=== PATIENT | female | born 1975 | race Caucasian/White ===

== ENCOUNTER → 2022-01-19 | Outpatient (CLI) | payer OTHER ==
[~2022-01-19] MED LIST: ACET325; ALBU.083IS; ALBU.083IS IH; ALBU90I INH; ALBU90OI; ALBU90OI INH; ALBU90OI6 INH; ALBUIS; ALPR1; AMOX500 PO; AZIT250 PO; Amitriptyline H10 MG PO; BUDE6HFA INH; CIPR500 PO; CITA20 PO; CLAR500 PO; CODGUAEL PO; CRANBERRY PILLS; CYCL10 PO; DOCU100 PO; DOXY100 PO; DULERA 200 MCG/13 GM IH; ESOM20; FLUC150A PO; FLUC200 PO; FLUSAL5005; FLUT110OIA; HYDACE10B PO; HYDACE5 PO; HYDGUAL120 PO; HYDHOMSY; HYDMOR4 PO; IBUP600 PO; IBUP800 PO; LANS15EC; LEVFLO500 PO; METO10 PO; METR500 PO; MONT10T; NAPR220; NAPR500 PO; OMEP10ER PO; OMEP20ER PO; ONDA4ODT MM; OXYACE5T PO; PANT40 PO; PENVK500 PO; PHENA200 PO; PRED20; PRED20 PO; PREVPAC PO; PROACE100 PO; PROCODE120 PO; PROM12.5S PR; PROM25 PO; PROM25S PR; Phenergan/Code480 ML PO; Prednisone20 MG PO; RXCLIN PO; RXHYDACE PO; RXHYDGUAS PO; RXOXYACE PO; RXPROACE PO; SERT50; SODIUM CHLORID100 ML IV; STERIOD INHALER; SUCR1 PO; Singulair4 M1; TRAM50 PO; Ventolin/Prove6.7 GM INH; Zofran4 MG PO; [UNRECOGNIZED DRUG - REMARK]
[2022-01-19 17:09] LABS: Hematocrit 37.7 % (33.0-51.0); Hemoglobin 11.9 g/dL (11.5-16.0); Mean Corpuscular HGB 29.2 pg (26.0-34.0); Mean Corpuscular HGB Conc 31.6 g/dL (31.5-36.5); Mean Corpuscular Volume 93 fL (80-100); Mean Platelet Volume 11.2 fL (9.1-12.4); Platelet Count 260 K/mm3 (150-400); RDW Coefficient Variation 13.2 % (11.7-14.2); RDW Standard Deviation 44.7 fL (35.1-46.3); Red Blood Cell Count 4.07 M/mm3 (3.80-5.20); White Blood Cell Count 6.69 K/mm3 (4.00-11.30)
[2022-01-19 17:16] LABS: Alanine Aminotransfer (ALT/SGP 18 U/L (12-78); Albumin, Blood 3.3 g/dL (3.4-5.0); Albumin/Globulin Ratio 1.1 (0.8-1.8); Alk Phos 106 U/L (50-136); Anion Gap 5 mmol/L (6-16); Aspartate Aminotrans (AST/SGOT 8 U/L (12-37); Bilirubin, Total 0.5 mg/dL (0.1-1.0); Blood Urea Nitrogen 6 mg/dL (8-24); CO2, Blood 25 mmol/L (21-32); Calcium, Blood 8.6 mg/dL (8.5-10.1); Chloride, Blood 111 mmol/L (98-108); Creatinine, Blood 0.85 mg/dL (0.40-1.00); Glomerular Filtration Rate >60 (60-); Glucose, Blood 120 mg/dL (70-99); Potassium, Blood 3.4 mmol/L (3.5-5.5); Sodium, Blood 141 mmol/L (136-145); Total Protein, Blood 6.3 g/dL (6.4-8.2)
== END | disposition home or self-care (01) ==
LOC: LAB SHORT 15:15 → LAB 15:15
PROVIDERS: Family Medicine
DX: M54.6 Pain in thoracic spine (principal); K31.84 Gastroparesis; R11.2 Nausea with vomiting, unspecified; E86.0 Dehydration; G89.29 Other chronic pain
CPT/HCPCS: 80053; 85027

== ENCOUNTER → 2022-02-23 | Outpatient (CLI) | payer MEDICARE, OTHER ==
[~2022-02-23] MED LIST changes: -Amitriptyline H10 MG PO; -HYDMOR4 PO; -METO10 PO; -ONDA4ODT MM; -PROM12.5S PR; -SODIUM CHLORID100 ML IV; -Ventolin/Prove6.7 GM INH; -Zofran4 MG PO
[2022-02-23 16:13] LABS: Hematocrit 37.1 % (33.0-51.0); Hemoglobin 11.8 g/dL (11.5-16.0); Mean Corpuscular HGB 28.7 pg (26.0-34.0); Mean Corpuscular HGB Conc 31.8 g/dL (31.5-36.5); Mean Corpuscular Volume 90 fL (80-100); Mean Platelet Volume 11.1 fL (9.1-12.4); Platelet Count 221 K/mm3 (150-400); RDW Coefficient Variation 13.4 % (11.7-14.2); RDW Standard Deviation 44.3 fL (35.1-46.3); Red Blood Cell Count 4.11 M/mm3 (3.80-5.20); White Blood Cell Count 5.78 K/mm3 (4.00-11.30)
[2022-02-23 16:53] LABS: Alanine Aminotransfer (ALT/SGP 15 U/L (12-78); Albumin, Blood 3.5 g/dL (3.4-5.0); Albumin/Globulin Ratio 1.2 (0.8-1.8); Alk Phos 100 U/L (50-136); Anion Gap 2 mmol/L (6-16); Aspartate Aminotrans (AST/SGOT 8 U/L (12-37); Bilirubin, Total 0.5 mg/dL (0.1-1.0); Blood Urea Nitrogen 9 mg/dL (8-24); Bun/Creatinine Ratio 10.2 (12.0-20.0); CO2, Blood 29 mmol/L (21-32); Calcium, Blood 8.9 mg/dL (8.5-10.1); Chloride, Blood 108 mmol/L (98-108); Creatinine, Blood 0.89 mg/dL (0.40-1.00); Globulin, Blood 2.9 g/dL (2.2-4.0); Glomerular Filtration Rate >60 (60-); Glucose, Blood 92 mg/dL (70-99); Potassium, Blood 3.8 mmol/L (3.5-5.5); Sodium, Blood 139 mmol/L (136-145); Total Protein, Blood 6.4 g/dL (6.4-8.2)
== END | disposition home or self-care (01) ==
LOC: LAB SHORT 14:40
PROVIDERS: Family Medicine
DX: K31.84 Gastroparesis (principal); E86.0 Dehydration; G89.29 Other chronic pain; R11.2 Nausea with vomiting, unspecified; M54.6 Pain in thoracic spine; Z45.2 Encounter for adjustment and management of vascular access device
CPT/HCPCS: 80053; 85027

== ENCOUNTER 2022-03-09 19:18 | Inpatient (IN) | payer MEDICARE, OTHER ==
[~2022-03-09] VITALS: Ht 172.7 cm; Wt 72.6 kg
[2022-03-09] MEDS ORDERED: Ventolin/Prove6.7 GM INH (19:52)
[2022-03-09] MEDS ORDERED: Zofran4 MG PO (19:53)
[2022-03-09] MEDS ORDERED: HYDMOR4 PO (19:53)
[2022-03-09] MEDS ORDERED: SODIUM CHLORID100 ML IV (19:54)
[2022-03-09 20:03] LABS: BASOPHILS ABSOLUTE AUTO 0.04 K/mm3 (0.00-0.23); BASOPHILS PERCENT AUTO 0 % (0-2); EOSINOPHILS ABSOLUTE AUTO 0.17 K/mm3 (0.00-0.68); EOSINOPHILS PERCENT AUTO 2 % (0-6); Hematocrit 38.8 % (33.0-51.0); Hemoglobin 12.5 g/dL (11.5-16.0); IMMATURE GRAN ABSOLUTE AUTO 0.03 K/mm3 (0.00-0.10); IMMATURE GRAN PERCENT AUTO 0 % (0-1); LYMPHOCYTES PERCENT AUTO 13 % (21-46); MONOCYTES ABSOLUTE AUTO 0.28 K/mm3 (0.16-1.47); MONOCYTES PERCENT AUTO 3 % (4-13); Mean Corpuscular HGB 28.8 pg (26.0-34.0); Mean Corpuscular HGB Conc 32.2 g/dL (31.5-36.5); Mean Corpuscular Volume 89 fL (80-100); NEUTROPHILS ABSOLUTE AUTO 7.78 K/mm3 (1.96-9.15); NEUTROPHILS PERCENT AUTO 82 % (41-73); Platelet Count 235 K/mm3 (150-400); RDW Coefficient Variation 13.6 % (11.7-14.2); RDW Standard Deviation 44.3 fL (35.1-46.3); Red Blood Cell Count 4.34 M/mm3 (3.80-5.20)
[2022-03-09 20:16] LABS: International Normalized Ratio 1.12; Prothrombin Time Results 11.7 Sec (9.7-11.5)
[2022-03-09 20:31] LABS: Alanine Aminotransfer (ALT/SGP 17 U/L (12-78); Albumin, Blood 3.8 g/dL (3.4-5.0); Albumin/Globulin Ratio 1.2 (0.8-1.8); Alk Phos 109 U/L (50-136); Anion Gap 8 mmol/L (6-16); Aspartate Aminotrans (AST/SGOT 13 U/L (12-37); Bilirubin, Total 1.1 mg/dL (0.1-1.0); Blood Urea Nitrogen 8 mg/dL (8-24); Bun/Creatinine Ratio 11.9 (12.0-20.0); CO2, Blood 21 mmol/L (21-32); Calcium, Blood 8.7 mg/dL (8.5-10.1); Chloride, Blood 108 mmol/L (98-108); Creatinine, Blood 0.67 mg/dL (0.40-1.00); Globulin, Blood 3.2 g/dL (2.2-4.0); Glomerular Filtration Rate >60 (60-); Glucose, Blood 196 mg/dL (70-99); Potassium, Blood 3.9 mmol/L (3.5-5.5); Sodium, Blood 137 mmol/L (136-145)
[2022-03-09] MEDS ORDERED: PROM12.5S PR (23:11)
--- NOTE | 2022-03-10 06:18 | NUR ---
PT ARRIVES FROM ED AT 0550. PT HAS NAUSEA AND ALSO HAS SOME EMESIS. PRN ZOFRAN GIVEN. ALSO SCHEDULED FENTANYL GIVEN. WILL CONTINUE TO MONITOR PT
[2022-03-10 07:39] LABS: Source, Urine Clean Catch
[2022-03-10 07:46] LABS: Appearance, Urine Clear (Clear); Bilirubin, Urine Neg (Neg); Blood, Urine 2+ (Neg); Color, Urine Yellow (P-Yellow); Glucose Qualitative, Urine Neg (Neg); Ketones, Urine 4+ (Neg); Leukocyte Esterase, Urine Neg (Neg); Nitrite, Urine Neg (Neg); Protein, Urine 1+ (Neg); Specific Gravity, Urine 1.015 (1.003-1.022); Urobilinogen, Urine NORM (Normal)
[2022-03-10 07:54] LABS: Bacteria Rare /hpf; Squamous Epithelial Cells Few /hpf (Few); White Blood Cells, Urine 0-2 /hpf (0-5)
[2022-03-10 08:00] LABS: U Amphetamine Screen Not Detected; U Barbituate Screen Not Detected; U Benzodiazapine Screen Not Detected; U Buprenorphine Screen Not Detected; U Cannabinoids Screen DETECTED; U Cocaine Screen Not Detected; U Methadone Screen Not Detected; U Methamphetamine Screen Not Detected; U Opiates Screen Not Detected; U Oxycodone Screen Not Detected; U Phencyclidine Screen Not Detected; U Propoxyphene Screen Not Detected
[2022-03-10 08:20] LABS: BASOPHILS ABSOLUTE AUTO 0.01 K/mm3 (0.00-0.23); BASOPHILS PERCENT AUTO 0 % (0-2); EOSINOPHILS PERCENT AUTO 0 % (0-6); Hematocrit 42.5 % (33.0-51.0); Hemoglobin 13.6 g/dL (11.5-16.0); IMMATURE GRAN ABSOLUTE AUTO 0.02 K/mm3 (0.00-0.10); IMMATURE GRAN PERCENT AUTO 0 % (0-1); LYMPHOCYTES ABSOLUTE AUTO 0.83 K/mm3 (0.84-5.20); LYMPHOCYTES PERCENT AUTO 8 % (21-46); MONOCYTES ABSOLUTE AUTO 0.29 K/mm3 (0.16-1.47); MONOCYTES PERCENT AUTO 3 % (4-13); Mean Corpuscular HGB 28.7 pg (26.0-34.0); Mean Corpuscular Volume 90 fL (80-100); NEUTROPHILS ABSOLUTE AUTO 8.69 K/mm3 (1.96-9.15); NEUTROPHILS PERCENT AUTO 88 % (41-73); Platelet Count 197 K/mm3 (150-400); RDW Coefficient Variation 13.5 % (11.7-14.2); RDW Standard Deviation 44.3 fL (35.1-46.3); Red Blood Cell Count 4.74 M/mm3 (3.80-5.20); White Blood Cell Count 9.84 K/mm3 (4.00-11.30)
[2022-03-10 08:23] LABS: Alanine Aminotransfer (ALT/SGP 18 U/L (12-78); Albumin, Blood 4.1 g/dL (3.4-5.0); Albumin/Globulin Ratio 1.2 (0.8-1.8); Alk Phos 115 U/L (50-136); Anion Gap 11 mmol/L (6-16); Aspartate Aminotrans (AST/SGOT 14 U/L (12-37); Bilirubin, Total 1.1 mg/dL (0.1-1.0); Blood Urea Nitrogen 6 mg/dL (8-24); Bun/Creatinine Ratio 8.5 (12.0-20.0); CO2, Blood 21 mmol/L (21-32); Calcium, Blood 9.2 mg/dL (8.5-10.1); Chloride, Blood 104 mmol/L (98-108); Creatinine, Blood 0.71 mg/dL (0.40-1.00); Globulin, Blood 3.5 g/dL (2.2-4.0); Glomerular Filtration Rate >60 (60-); Glucose, Blood 126 mg/dL (70-99); Potassium, Blood 3.8 mmol/L (3.5-5.5); Sodium, Blood 136 mmol/L (136-145); Total Protein, Blood 7.6 g/dL (6.4-8.2)
--- NOTE | 2022-03-10 11:27 | NUR ---
Pt. is in bed and displays evidence of viceral pain. Pt. does welcome my visit. Pt. displays evidence of frustration and resignation about her condition. With a calming influence and theraputic listening, pt. begins to demonstrate evidence of trust and engagement. Establish rapport with pt. [place] with pt. Pt. verbalizes gratitude for the spiritual care visit.
--- NOTE | 2022-03-10 15:53 | NUR ---
SHIFT SUMMARY: NAUSEA AND VOMITING PATIENT IS A&OX4. VS ARE WNL AND IS ON RA. IV FLUIDS RUNNING THROUGHOUT SHIFT. PATIENT HAD ABOUT 4 EPISODES OF EMESIS. EMESIS WAS THICK WITH GREENISH/BROWN COLORING. PATIENT HAS RECIEVED IV ATIVAN, PHENERGAN, COMPAZINE, ZOFRAN, AND REGLAN. THE 1MG OF ATIVAN AND REGLAN SEEMED TO DO BEST AND HAD HER FALL ASLEEP. PATIENT IS EASILY AWOKEN WITH TOUCH AND VERBAL STIMULI. CALL LIGHT WITHIN REACH. CALLS APPROPRIATELY. THE PLAN IS TO CONTINUE IV FLUIDS AND MAINTAIN CONTROL OF NAUSEA.
--- NOTE | 2022-03-10 18:06 | NUR ---
CALLED DR. DUNLAP SINCE THE PATIENT WOULD RECIEVE IV PHENERGAN, ATIVAN, REGLAN, FENT, AND ZOFRAN AND WAKE UP VOMITING BROWNISH OUTPUT THROUGHOUT SHIFT. DR. DUNLAP PLACED AN ORDER FOR IV INAPSINE TO STIMULATE APPETITE. PATIENT WAS ALREADY FALLING BACK ASLEEP DUE TO JUST GIVEN IV PHENERGAN AND FENT. CALL LIGHT WITHIN REACH.
--- NOTE | 2022-03-10 18:20 | NUR ---
DR. DUNLAP CAME INTO THE ROOM AND EVALUATED THE PATIENT. DR. DUNLAP SAID TO ALTERNATE BETWEEN ATIVAN AND BENADRYL TO "KEEP HER SEDATED". BENADRYL CAN BE GIVEN 25-50 MG EVERY 4 HOURS. IV ATIVAN 1-2 MG CAN BE GIVEN EVERY 4 HOURS. PATIENT HAS CALL LIGHT WITHIN REACH. FRIEND AT BEDSIDE.
--- NOTE | 2022-03-11 05:13 | NUR ---
SHIFT SUMMARY PT CONTINUES TO HAVE INTRACTABLE N/V OVERNIGHT. WHEN PT IS AWAKE SHE IS VOMITTING. MEDICATED PER EMAR WITH EFFECT. PT ALSO COMPLAINING OF ABD PAIN AND REPORTS PAIN 9/10. EMESIS AT TIMES CLEAR AND SOMETIMES BROWN. IVF INFUSED PER ORDERS. PT HAS BEEN INDEPENDENT IN THE ROOM. VITALS STABLE. BED IN LOWEST POSITION, CALL LIGHT WITHIN REACH.
[2022-03-11 05:49] LABS: Anion Gap 9 mmol/L (6-16); Blood Urea Nitrogen 7 mg/dL (8-24); Bun/Creatinine Ratio 8.7 (12.0-20.0); CO2, Blood 22 mmol/L (21-32); Calcium, Blood 8.5 mg/dL (8.5-10.1); Chloride, Blood 107 mmol/L (98-108); Glomerular Filtration Rate >60 (60-); Glucose, Blood 118 mg/dL (70-99); Potassium, Blood 3.4 mmol/L (3.5-5.5); Sodium, Blood 138 mmol/L (136-145)
--- NOTE | 2022-03-11 15:54 | NUR ---
SHIFT SUMMARY: NAUSEA/VOMITING PATIENT IS A&OX4 WHILE AWAKE BUT HAS BEEN SLEEPING FOR MOST OF THE DAY. PAIN IS MANAGED WITH IV FENT. IV BENADRYL AND ATIVAN ARE BEING GIVEN TO HELP HER REST AND NOT BE VOMITING. PATIENT IS STILL VOMITING SOON SHE WAKES UP. IV FLUIDS WITH POTASSIUM ARE RUNNING AT THIS TIME. PATIENT IS VOIDING AND IS A SBA TO THE BATHROOM DUE TO IV POLE/CORDS. PATIENT HAS VOMITED ABOUT 5-7 TIMES TODAY. EMESIS COLOR IS NOW MORE CLEAR AND FOAMY UNLIKE YESTERDAY IT WAS BROWNISH/GREENISH. PATIENT IS NOW LAYING IN BED. IV FLUIDS ARE CONNECTED TO HER MEDIPORT ON RIGHT CHEST WALL. CALLS APPROPRIATELY. CALL LIGHT WITHIN REACH. I CALLED DR. DUNLAP TO GIVE HIM AN UPDATE ON HER AND HE REPORTED HE WILL BE PUTTING IN IV STEROID ORDERS FOR THE PATIENT TO SEE IF IT WILL HELP. WILL CONTINUE THE IV BENADRYL AND ATIVAN TO DECREASE VOMITING EPISODES.
[2022-03-12 05:15] LABS: Anion Gap 8 mmol/L (6-16); Blood Urea Nitrogen 14 mg/dL (8-24); Bun/Creatinine Ratio 16.7 (12.0-20.0); CO2, Blood 22 mmol/L (21-32); Calcium, Blood 8.3 mg/dL (8.5-10.1); Chloride, Blood 108 mmol/L (98-108); Creatinine, Blood 0.84 mg/dL (0.40-1.00); Glomerular Filtration Rate >60 (60-); Glucose, Blood 110 mg/dL (70-99); Potassium, Blood 4.2 mmol/L (3.5-5.5); Sodium, Blood 138 mmol/L (136-145)
--- NOTE | 2022-03-12 11:45 | NUR ---
PT APPEARS TO BE SLEEPING. SHE APPEARS TO BE RESING COMFORTABLY. RESPIRATIONS ARE RORY AND UNLABORED. PT DOES NOT APPEAR TO BE WINCING OR GRIMACING IN HER SLEEP.
--- NOTE | 2022-03-12 14:06 | NUR ---
Pt. is awake in bed, and welcomes my visit. Friend is present. Pt. is pleasant and verbalizes that this has been a good day. Through theratutic listening re-establish rapport. Pt. was guarded until friend excused herself to make a phone call. Pt. gives update on the condition of her infant grandson who just had successful surgery. Pastoral care and encouragement is given. Pt. displays evidence of agreement. [place] with Pt. Pt.verbalizes gratitude for the spiritual care visit.
--- NOTE | 2022-03-12 19:21 | NUR ---
SHIFT SUMMARY PT IS ADMITTED FOR EXACERBATION OF GASTROPARESIS. PT'S NAUSEA AND PAIN HAVE BEEN DIFFICULT TO CONTROL THROUGHOUT THE DAY. PT HAS ACCESSED MEDIPORT. PT HAS HAD A SMALL AMOUNT OF EMESIS. PT IS INDEPENDENT TO BATHROOM.
--- NOTE | 2022-03-13 05:33 | NUR ---
SURVEY AND MAPPING TECHNICIAN SUMMARY MEDICATED AT BEDTIME WITH BENADRYL, COMPAZINE, AND FENTANYL AND PT WAS ABLE TO SLEEP UNTIL APPROXIMATELY 0430 THIS AM WHICH IS THE LONGEST PT HAS BEEN ABLE TO GO BETWEEN MEDS. MEDICATED AGAIN THIS AM AND PT RESTING AGAIN. TOLERATING SMALL AMOUNTS OF CLEAR LIQUIDS, DRINKING WATER AND HAD SOME CHICKEN BROTH. VSS, WILL CONTINUE TO MONITOR.
--- NOTE | 2022-03-13 14:53 | NUR ---
PT STATED SHE SHE WAS ABLE TO HAVE A LARGE LOOSE STOOL AND PASS GAS. PT STATED STOOL WAS DARK GREEN. HAT PLACED IN TOILET AND PT EDUCATED ON THE USE OF THE HAT TO CATCH STOOL FOR MEASURMENT AND OBSERVATION.
--- NOTE | 2022-03-13 16:24 | NUR ---
ROUNDED ON PT AT 1600. PT APPEARED TO BE SLEEPING. EVEN AND UNLABORED RESPIRATIONS NOTED. NO FACIAL GRIMIACING. WILL CONTINUE TO MONITOR
--- NOTE | 2022-03-13 17:29 | NUR ---
SHIFT SUMMARY PT'S PAIN AND NAUSEA STILL DIFFICULT TO MANAGE. PT STILL HAVING EPISODES OF VOMITTING. PT ADVANCED TO CLEAR LIQUIED DIET. PT STATES THE LIQUIDS UPSET HER STOMACH SO SHE HAS TAKEN IN ONLY SMALL AMOUNTS ON FOOD TRAY. PT IS INDEPENDENT TO BATHROOM. PT STATES SHE WAS ABLE TO PASS GAS AND A LARGE LIQUID STOOL TODAY. PT WAITING TO HEAR FROM GI LUGGAGE MAKER OF THIS REPORT.
--- NOTE | 2022-03-13 19:37 | NUR ---
SHIFT SUMMARY PT CONTINUES TO EXPERIENCE NAUSEA, VOMITING AND ABD PAIN. PT DOES GET SOME RELIEF FROM ANTIEMETICS, PAIN AND ANXIETY MEDICATION. PT REPORTED SHE HAD A STOOL AND PASSED FLATUS THIS AFTERNOON. PT ALSO REPORTS SHE IS CONTINUING TO VOMIT AFTER PO INTAKE. SCOPALAMINE PATCH PLACED TODAY. PT WAS EDUCATED TO USE HER INCENTIVE SPIROMETER AND EDUCATED REGARDING IMPORTANCE OF USE. SHE WAS ALSO ENCOURAGED TO GET OOB AND AMBULATE, SHE AGREED TO AMBULATE X1 IN THE HALWAYS, OTHERWISE SHE IS AMBULATING TO THE BATHROOM. REPORT GIVEN TO ARBEN DENIS.
[2022-03-14 04:58] LABS: Anion Gap 6 mmol/L (6-16); Blood Urea Nitrogen 9 mg/dL (8-24); Bun/Creatinine Ratio 10.2 (12.0-20.0); CO2, Blood 25 mmol/L (21-32); Calcium, Blood 7.8 mg/dL (8.5-10.1); Chloride, Blood 110 mmol/L (98-108); Creatinine, Blood 0.89 mg/dL (0.40-1.00); Glomerular Filtration Rate >60 (60-); Glucose, Blood 80 mg/dL (70-99); Potassium, Blood 3.2 mmol/L (3.5-5.5); Sodium, Blood 141 mmol/L (136-145)
--- NOTE | 2022-03-14 05:26 | NUR ---
PT COOPERATIVE & RECEPTIVE WITH CARE, VSS. PT REPORTS EXTREME ANXIETY, MODERATE PAIN, AND NAUSEA, PT REPORTS ADEQUATE ANXIETY, PAIN, AND NAUSEA CONTROL WITH MEDICATION PER EMAR. PROVIDED ENCOURAGEMENT TO INCREASE ACTIVITY DURING THE DAY AND INCORPORATE DISTRACTION TECHNIQUES. MEDPORT IN RIGHT CHEST IS ACCESSED WITH NS RUNNING @ 50ML/HR. PT INDEPENDENT IN ROOM, REPORTS NORMAL VOIDING PATTERN, REPORTS BM ON 02/11/22, REPORTS NO PASSING OF FLATUS, BOWEL SOUNDS NORMAL. SCD IN USE ON BILAT CALF. CONTINUOUS PULSE OX IN PLACE. PATIENT REPORTS BEING ABLE TO SLEEP DURING SOME OF THE NIGHT, AND IS CURRENTLY RESTING QUIET IN BED. WILL CONTINUE TO MONITOR UNTIL REPORT GIVEN TO NEXT SHIFT.
--- NOTE | 2022-03-14 13:52 | NUR ---
PT TOLERATING PO WITH NO INCREASE IN NAUSEA BUT SPIKES IN PAIN. MANAGED WELL PER EMAR. FENTANYL EFFECTIVE. REPORTS SMALL PASSING OF FLATUS. PT IS AMBULATING IN ROOM AND STAYING HYDRATED. HER MEDIPORT REMIANS ACCESSED, PATENT AND DRAINING. HANDING OFF CARE TO CIRA PADRON.
--- NOTE | 2022-03-14 18:24 | NUR ---
SHIFT SUMMARY ASSUMED CARE OF PT AT 1600. PT RESTING IN ROOM AT ASSUMPTION OF CARE. PT ATTEMPTED TO EAT FROM DINNER TRAY AND REPORTED A RETURN OF SIGNIFICANT PAIN AND NAUSEA. PT ALSO REPORTED AN INCREASE IN ANXIETY. PT MEDICATED PER ORDERS. PT IS IN BED AT THE TIME OF THIS NOTE.
[2022-03-15 05:46] LABS: Anion Gap 7 mmol/L (6-16); Blood Urea Nitrogen 10 mg/dL (8-24); Bun/Creatinine Ratio 10.7 (12.0-20.0); CO2, Blood 25 mmol/L (21-32); Calcium, Blood 7.7 mg/dL (8.5-10.1); Chloride, Blood 110 mmol/L (98-108); Creatinine, Blood 0.94 mg/dL (0.40-1.00); Glomerular Filtration Rate >60 (60-); Glucose, Blood 116 mg/dL (70-99); Potassium, Blood 3.1 mmol/L (3.5-5.5); Sodium, Blood 142 mmol/L (136-145)
--- NOTE | 2022-03-15 06:29 | NUR ---
PT COOPERATIVE WITH CARE PROVIDED, VSS AND CONSISTANT W/ REPORTED BASELINE. PT REPORTED EXTREME PAIN AND ANXIETY, REPORTS ADEQUATE PAIN AND ANXIETY CONTROL W/ MEDICATION PER EMAR. MEDIPORT IN R. CHEST, RECEIVING 50 MLS/HR NS. PATIENT INDEPENDENT IN ROOM REPORTS NORMAL VOIDING PATTERN AND PASSING FLATUS. SCD IN USE BILAT CALF, CONTINUOUS PULSE OX IN USE. REPORTS BEING ABLE TO SLEEP DURING THE NIGHT. PATIENT CURRENTLY SLEEPING, WILL CONTINUE TO MONITOR UNTIL REPORT GIVEN TO NEXT SHIFT.
[2022-03-15] MEDS ORDERED: Amitriptyline H10 MG PO (10:35)
[2022-03-15] MEDS ORDERED: ONDA4ODT MM (10:36)
[2022-03-15] MEDS ORDERED: METO10 PO (10:36)
--- NOTE | 2022-03-15 11:46 | NUR ---
DISCHARGE PT LEFT VIA WHEELCHAIR AT 1130. PT EXPRESSED DESIRE TO GO HOME, SHE REPORTED SHE FELT AT HER BASELINE. SHE REMAINED SLIGHTLY NAUSEOUS BUT STATED IT WAS TOLERABLE. HER MEDIPORT WAS DEACCESSED PRIOR TO DISCHARGE, HEPLOCKED PER PROTOCOL. PATIENT PLANS TO FOLLOW UP WITH PCP AND GASTRO UPON DISCHARGE.
== END 2022-03-15 11:30 | disposition home or self-care (01) | DRG 897 ==
LOC: ER 19:18 → ERHOLD 19:19 → SURS 03-10 05:42
PROVIDERS: Internal Medicine; Physician Assistant; ADMIT Internal Medicine
DX: F12.90 Cannabis use, unspecified, uncomplicated (principal); K31.84 Gastroparesis; E87.6 Hypokalemia; R11.2 Nausea with vomiting, unspecified; Z88.2 Allergy status to sulfonamides; Z88.0 Allergy status to penicillin; Z91.040 Latex allergy status; Z88.5 Allergy status to narcotic agent; J45.909 Unspecified asthma, uncomplicated; Z79.899 Other long term (current) drug therapy; K58.9 Irritable bowel syndrome, unspecified; Z90.49 Acquired absence of other specified parts of digestive tract; Z90.710 Acquired absence of both cervix and uterus; E86.0 Dehydration; G43.909 Migraine, unspecified, not intractable, without status migrainosus; Z87.442 Personal history of urinary calculi
CPT/HCPCS: 36415; 74177; 80048; 80053; 81001; 83690; 85025; 85610; 85651; 85730; 86141; 86850; 86900; 86901; 93005; 93010; 94640; 94664; 94760; 94762; 96361; 96365; 96375; 96376; 99285-25; A9270; C9113; G0378; J0780; J1100; J1200; J1364; J1642; J1790; J2060; J2405; J2550; J2765; J3010; J3480; J7030; J7040; J7050; J7120; Q9967

== ENCOUNTER → 2022-03-23 | Outpatient (CLI) | payer MEDICARE, OTHER ==
[~2022-03-23] MED LIST changes: +Amitriptyline H10 MG PO; +HYDMOR4 PO; +METO10 PO; +ONDA4ODT MM; +PROM12.5S PR; +SODIUM CHLORID100 ML IV; +Ventolin/Prove6.7 GM INH; +Zofran4 MG PO
[2022-03-23 16:05] LABS: Hematocrit 35.3 % (33.0-51.0); Hemoglobin 11.2 g/dL (11.5-16.0); Mean Corpuscular HGB 28.6 pg (26.0-34.0); Mean Corpuscular HGB Conc 31.7 g/dL (31.5-36.5); Mean Corpuscular Volume 90 fL (80-100); Mean Platelet Volume 11.2 fL (9.1-12.4); Platelet Count 195 K/mm3 (150-400); RDW Coefficient Variation 13.6 % (11.7-14.2); RDW Standard Deviation 44.5 fL (35.1-46.3); Red Blood Cell Count 3.91 M/mm3 (3.80-5.20); White Blood Cell Count 5.81 K/mm3 (4.00-11.30)
[2022-03-23 16:18] LABS: Bilirubin, Total 0.6 mg/dL (0.1-1.0); Bun/Creatinine Ratio 6.5 (12.0-20.0); Calcium, Blood 8.7 mg/dL (8.5-10.1); Creatinine, Blood 0.77 mg/dL (0.40-1.00); Globulin, Blood 2.9 g/dL (2.2-4.0); Potassium, Blood 3.6 mmol/L (3.5-5.5); Total Protein, Blood 5.9 g/dL (6.4-8.2)
== END | disposition home or self-care (01) ==
LOC: LAB 14:02 → LAB SHORT 14:02
PROVIDERS: Family Medicine
DX: Z51.81 Encounter for therapeutic drug level monitoring (principal); K31.84 Gastroparesis; E86.0 Dehydration; M54.6 Pain in thoracic spine; G89.29 Other chronic pain; J45.40 Moderate persistent asthma, uncomplicated; R11.2 Nausea with vomiting, unspecified; Z79.899 Other long term (current) drug therapy
CPT/HCPCS: 80053; 85027

== ENCOUNTER 2022-06-22 11:06 | Emergency (ER) | payer MEDICARE, OTHER ==
[~2022-06-22] VITALS: Ht 170.2 cm; Wt 72.6 kg
== END 2022-06-22 12:05 | disposition home or self-care (01) ==
LOC: ER 11:06
DX: H53.8 Other visual disturbances (principal); Z88.2 Allergy status to sulfonamides; Z88.0 Allergy status to penicillin; Z91.040 Latex allergy status; Z88.6 Allergy status to analgesic agent; Z79.899 Other long term (current) drug therapy; J45.909 Unspecified asthma, uncomplicated; Z87.442 Personal history of urinary calculi
CPT/HCPCS: 99283

== ENCOUNTER → 2022-08-25 | Outpatient (CLI) | payer MEDICARE, OTHER ==
[2022-08-25 17:40] LABS: BASOPHILS ABSOLUTE AUTO 0.03 K/mm3 (0.00-0.23); BASOPHILS PERCENT AUTO 1 % (0-2); EOSINOPHILS PERCENT AUTO 11 % (0-6); Hematocrit 34.3 % (33.0-51.0); Hemoglobin 10.9 g/dL (11.5-16.0); IMMATURE GRAN ABSOLUTE AUTO 0.02 K/mm3 (0.00-0.10); IMMATURE GRAN PERCENT AUTO 0 % (0-1); LYMPHOCYTES ABSOLUTE AUTO 2.05 K/mm3 (0.84-5.20); LYMPHOCYTES PERCENT AUTO 32 % (21-46); MONOCYTES ABSOLUTE AUTO 0.54 K/mm3 (0.16-1.47); MONOCYTES PERCENT AUTO 9 % (4-13); Mean Corpuscular HGB 29.1 pg (26.0-34.0); Mean Corpuscular HGB Conc 31.8 g/dL (31.5-36.5); Mean Corpuscular Volume 92 fL (80-100); Mean Platelet Volume 10.2 fL (9.1-12.4); NEUTROPHILS PERCENT AUTO 47 % (41-73); Platelet Count 235 K/mm3 (150-400); RDW Standard Deviation 50.4 fL (35.1-46.3); Red Blood Cell Count 3.75 M/mm3 (3.80-5.20); White Blood Cell Count 6.34 K/mm3 (4.00-11.30)
[2022-08-25 18:04] LABS: Albumin, Blood 3.3 g/dL (3.4-5.0); Albumin/Globulin Ratio 1.1 (0.8-1.8); Bilirubin, Total 0.2 mg/dL (0.1-1.0); Bun/Creatinine Ratio 12.8 (12.0-20.0); Calcium, Blood 8.7 mg/dL (8.5-10.1); Creatinine, Blood 0.78 mg/dL (0.40-1.00); Globulin, Blood 2.9 g/dL (2.2-4.0); Potassium, Blood 4.1 mmol/L (3.5-5.5); Total Protein, Blood 6.2 g/dL (6.4-8.2)
== END | disposition home or self-care (01) ==
LOC: LAB SHORT 16:10 → LAB 16:10
PROVIDERS: Family Medicine
DX: K31.84 Gastroparesis (principal)
CPT/HCPCS: 80053; 84443; 85025

== ENCOUNTER 2022-09-09 15:07 | Emergency (ER) | payer MEDICARE, OTHER ==
[~2022-09-09] VITALS: Ht 170.2 cm; Wt 69.4 kg
[2022-09-09] MEDS ORDERED: Ventolin/Prove6.7 GM INH (16:15)
[2022-09-09] MEDS ORDERED: TRANSDERM-SCOP1 EA10 TD (16:15)
[2022-09-09] MEDS ORDERED: Zyprexa Zydis5 MG PO (16:15)
[2022-09-09] MEDS ORDERED: HYDMOR4 PO (16:15)
[2022-09-09] MEDS ORDERED: LANSOPRAZOLE15 MG PO (16:16)
[2022-09-09] MEDS ORDERED: PROC25S PR (16:16)
[2022-09-09] MEDS ORDERED: DULERA 200 MCG-13 GM IH (16:16)
[2022-09-09] MEDS ORDERED: MONT10T PO (16:16)
[2022-09-09] MEDS ORDERED: CLONAZEPAM1 MG PO (16:16)
[2022-09-09] MEDS ORDERED: ESOMEPRAZOLE MA40 MG PO (16:16)
[2022-09-09 16:38] LABS: BASOPHILS ABSOLUTE AUTO 0.03 K/mm3 (0.00-0.23); BASOPHILS PERCENT AUTO 1 % (0-2); EOSINOPHILS ABSOLUTE AUTO 0.56 K/mm3 (0.00-0.68); EOSINOPHILS PERCENT AUTO 9 % (0-6); Hematocrit 32.8 % (33.0-51.0); Hemoglobin 10.5 g/dL (11.5-16.0); IMMATURE GRAN ABSOLUTE AUTO 0.01 K/mm3 (0.00-0.10); IMMATURE GRAN PERCENT AUTO 0 % (0-1); LYMPHOCYTES ABSOLUTE AUTO 2.04 K/mm3 (0.84-5.20); LYMPHOCYTES PERCENT AUTO 33 % (21-46); MONOCYTES ABSOLUTE AUTO 0.42 K/mm3 (0.16-1.47); MONOCYTES PERCENT AUTO 7 % (4-13); Mean Corpuscular Volume 91 fL (80-100); Mean Platelet Volume 9.5 fL (9.1-12.4); NEUTROPHILS ABSOLUTE AUTO 3.06 K/mm3 (1.96-9.15); NEUTROPHILS PERCENT AUTO 50 % (41-73); Platelet Count 234 K/mm3 (150-400); RDW Coefficient Variation 15.3 % (11.7-14.2); RDW Standard Deviation 50.6 fL (35.1-46.3); Red Blood Cell Count 3.62 M/mm3 (3.80-5.20); White Blood Cell Count 6.12 K/mm3 (4.00-11.30)
[2022-09-09 16:49] LABS: Source, Urine Clean Catch
[2022-09-09 16:59] LABS: Appearance, Urine Clear (Clear); Bilirubin, Urine Neg (Neg); Blood, Urine Neg (Neg); Color, Urine Yellow (P-Yellow); Glucose Qualitative, Urine Neg (Neg); Ketones, Urine Neg (Neg); Leukocyte Esterase, Urine Neg (Neg); Nitrite, Urine Neg (Neg); Protein, Urine Neg (Neg); Urobilinogen, Urine NORM (Normal)
[2022-09-09 17:03] LABS: Albumin, Blood 3.4 g/dL (3.4-5.0); Albumin/Globulin Ratio 1.1 (0.8-1.8); Bilirubin, Total 0.4 mg/dL (0.1-1.0); Calcium, Blood 8.6 mg/dL (8.5-10.1); Creatinine, Blood 0.86 mg/dL (0.40-1.00); Globulin, Blood 3.1 g/dL (2.2-4.0); Total Protein, Blood 6.5 g/dL (6.4-8.2)
[2022-09-09] MEDS ORDERED: METO10 PO (21:17)
== END 2022-09-09 21:37 | disposition home or self-care (01) ==
LOC: ER 15:07
PROVIDERS: Emergency Medicine
DX: R11.2 Nausea with vomiting, unspecified (principal); R10.9 Unspecified abdominal pain; J45.909 Unspecified asthma, uncomplicated; G43.909 Migraine, unspecified, not intractable, without status migrainosus; Z87.891 Personal history of nicotine dependence
CPT/HCPCS: 71045; 74177; 80053; 81003; 83690; 85025; 86850; 86900; 86901; 93005; 93010; J1200; J2405; J2765; J3010; J7030; Q9967

== ENCOUNTER → 2022-12-08 | Outpatient (CLI) | payer MEDICARE, OTHER ==
[~2022-12-08] MED LIST changes: +CLONAZEPAM1 MG PO; +DULERA 200 MCG-13 GM IH; +ESOMEPRAZOLE MA40 MG PO; +LANSOPRAZOLE15 MG PO; +MONT10T PO; +PROC25S PR; +TRANSDERM-SCOP1 EA10 TD; +Zyprexa Zydis5 MG PO
[2022-12-08 16:58] LABS: Hematocrit 34.3 % (33.0-51.0); Hemoglobin 10.9 g/dL (11.5-16.0); Mean Corpuscular HGB 28.1 pg (26.0-34.0); Mean Corpuscular HGB Conc 31.8 g/dL (31.5-36.5); Mean Corpuscular Volume 88 fL (80-100); Platelet Count 241 K/mm3 (150-400); RDW Coefficient Variation 14.2 % (11.7-14.2); RDW Standard Deviation 46.2 fL (35.1-46.3); Red Blood Cell Count 3.88 M/mm3 (3.80-5.20); White Blood Cell Count 7.91 K/mm3 (4.00-11.30)
[2022-12-08 19:34] LABS: Albumin, Blood 3.5 g/dL (3.4-5.0); Albumin/Globulin Ratio 1.2 (0.8-1.8); Bilirubin, Total 0.3 mg/dL (0.1-1.0); Bun/Creatinine Ratio 10.6 (12.0-20.0); Calcium, Blood 8.1 mg/dL (8.5-10.1); Creatinine, Blood 0.85 mg/dL (0.40-1.00); Magnesium, Blood 2.3 mg/dL (1.6-2.4); Percent Saturation 8.1 % (15.0-50.0); Potassium, Blood 3.7 mmol/L (3.5-5.5); Total Protein, Blood 6.5 g/dL (6.4-8.2)
== END ==
LOC: LAB SHORT 15:15 → LAB HH 15:15
DX: K31.84 Gastroparesis (principal); R11.12 Projectile vomiting; R63.0 Anorexia; E86.0 Dehydration
CPT/HCPCS: 80053; 83540; 83550; 83735; 84443; 85027

== ENCOUNTER 2023-03-02 10:26 | Inpatient (IN) | payer MEDICARE, OTHER ==
[~2023-03-02] VITALS: Ht 167.6 cm; Wt 85.8 kg
[2023-03-02 10:52] LABS: BASOPHILS ABSOLUTE AUTO 0.02 K/mm3 (0.00-0.23); BASOPHILS PERCENT AUTO 0 % (0-2); EOSINOPHILS ABSOLUTE AUTO 0.02 K/mm3 (0.00-0.68); EOSINOPHILS PERCENT AUTO 0 % (0-6); Hematocrit 36.3 % (33.0-51.0); Hemoglobin 11.3 g/dL (11.5-16.0); IMMATURE GRAN ABSOLUTE AUTO 0.07 K/mm3 (0.00-0.10); IMMATURE GRAN PERCENT AUTO 0 % (0-1); LYMPHOCYTES ABSOLUTE AUTO 0.88 K/mm3 (0.84-5.20); LYMPHOCYTES PERCENT AUTO 6 % (21-46); MONOCYTES ABSOLUTE AUTO 0.28 K/mm3 (0.16-1.47); MONOCYTES PERCENT AUTO 2 % (4-13); Mean Corpuscular HGB 26.1 pg (26.0-34.0); Mean Corpuscular HGB Conc 31.1 g/dL (31.5-36.5); Mean Corpuscular Volume 84 fL (80-100); NEUTROPHILS ABSOLUTE AUTO 14.64 K/mm3 (1.96-9.15); NEUTROPHILS PERCENT AUTO 92 % (41-73); Platelet Count 299 K/mm3 (150-400); RDW Coefficient Variation 14.9 % (11.7-14.2); RDW Standard Deviation 45.7 fL (35.1-46.3); Red Blood Cell Count 4.33 M/mm3 (3.80-5.20); White Blood Cell Count 15.91 K/mm3 (4.00-11.30)
[2023-03-02 11:17] LABS: Albumin, Blood 3.8 g/dL (3.4-5.0); Bilirubin, Direct 0.2 mg/dL (0.0-0.3); Bilirubin, Indirect 0.4 mg/dL (0.1-0.7); Bilirubin, Total 0.6 mg/dL (0.1-1.0); Bun/Creatinine Ratio 12.4 (12.0-20.0); Calcium, Blood 9.3 mg/dL (8.5-10.1); Creatinine, Blood 0.64 mg/dL (0.40-1.00); Globulin, Blood 3.8 g/dL (2.2-4.0); Potassium, Blood 4.3 mmol/L (3.5-5.5); Total Protein, Blood 7.6 g/dL (6.4-8.2)
[2023-03-02 12:42] LABS: Source, Urine Clean Catch
[2023-03-02 12:54] LABS: Appearance, Urine Clear (Clear); Bilirubin, Urine Neg (Neg); Blood, Urine Neg (Neg); Color, Urine Yellow (P-Yellow); Glucose Qualitative, Urine Neg (Neg); Ketones, Urine 4+ (Neg); Leukocyte Esterase, Urine Neg (Neg); Nitrite, Urine Neg (Neg); Protein, Urine 2+ (Neg); Urobilinogen, Urine NORM (Normal)
[2023-03-02 13:04] LABS: Bacteria Mod /hpf; Mucus Mod (0-Heavy); Red Blood Cells, Urine Not Seen /hpf (0-2); Squamous Epithelial Cells Few /hpf (Few); White Blood Cells, Urine 0-2 /hpf (0-5)
[2023-03-02 19:27] LABS: U Cannabinoids Screen DETECTED
[2023-03-02 19:28] LABS: U Amphetamine Screen Not Detected; U Barbituate Screen Not Detected; U Benzodiazapine Screen Not Detected; U Buprenorphine Screen Not Detected; U Cocaine Screen Not Detected; U Methadone Screen Not Detected; U Methamphetamine Screen Not Detected; U Opiates Screen DETECTED; U Oxycodone Screen Not Detected; U Phencyclidine Screen Not Detected; U Propoxyphene Screen Not Detected
[2023-03-02 21:19] VITALS: BP 156/97
[2023-03-03 03:27] VITALS: BP 157/97
[2023-03-03 04:54] LABS: BASOPHILS ABSOLUTE AUTO 0.02 K/mm3 (0.00-0.23); BASOPHILS PERCENT AUTO 0 % (0-2); EOSINOPHILS PERCENT AUTO 0 % (0-6); Hematocrit 35.9 % (33.0-51.0); Hemoglobin 11.2 g/dL (11.5-16.0); IMMATURE GRAN PERCENT AUTO 1 % (0-1); LYMPHOCYTES ABSOLUTE AUTO 1.64 K/mm3 (0.84-5.20); LYMPHOCYTES PERCENT AUTO 9 % (21-46); MONOCYTES ABSOLUTE AUTO 0.71 K/mm3 (0.16-1.47); MONOCYTES PERCENT AUTO 4 % (4-13); Mean Corpuscular HGB Conc 31.2 g/dL (31.5-36.5); Mean Corpuscular Volume 84 fL (80-100); NEUTROPHILS ABSOLUTE AUTO 15.96 K/mm3 (1.96-9.15); NEUTROPHILS PERCENT AUTO 87 % (41-73); Platelet Count 337 K/mm3 (150-400); RDW Coefficient Variation 15.1 % (11.7-14.2); RDW Standard Deviation 45.4 fL (35.1-46.3); White Blood Cell Count 18.43 K/mm3 (4.00-11.30)
[2023-03-03 05:21] LABS: Bun/Creatinine Ratio 10.1 (12.0-20.0); Calcium, Blood 9.1 mg/dL (8.5-10.1); Creatinine, Blood 0.7 mg/dL (0.40-1.00); Magnesium, Blood 1.8 mg/dL (1.6-2.4)
--- NOTE | 2023-03-03 05:25 | NUR ---
SHIFT SUMMARY 47 YR F ADMITTED ON 03/02/23 FOR SEVERE GASTROPERESIS. FULL CODE. PT CAME IN W/ SEVERE N/V AND HAD SEVERAL EPISODES OF EMISIS THIS SHIFT. SHE WAS GIVEN ANTIEMETICS SEVERAL TIMES AND THESE HELPED W/ THE N/V. SHE WAS ABLE TO SLEEP FOR A FEW HOURS BUT HAS C/O SEVERE ABDOMINAL PAIN. PER PT, HER MEDIPORT NEEDED DEACCESSED AND REACCESSED IT HAD BEEN SEVEN DAYS SINCE IT WAS LAST DONE. KATIE NIEVES RN, DID THE CHANGE. PT IS VERY PROACTIVE IN HER OWN CARE AND NORMALLY DEACCESSES HER OWN MEDIPORT. NO OTHER ACUTE CHANGES THIS SHIFT.
[2023-03-03 07:23] VITALS: BP 126/92
[2023-03-03 15:45] VITALS: BP 141/80
--- NOTE | 2023-03-03 16:39 | NUR ---
PATIENT A/OX4, UP INDEPENDENTLY IN ROOM. CONTINUES TO HAVE N/V, REGLAN NOW SCHEDULED AND COMPAZINE AND ZOFRAN USED TO TREAT. DILAUDID GIVEN Q6 HOURS FOR ABDOMINAL PAIN WITH GOOD RELIEF. PATIENT WAS ABLE TO REST FOR ABOUT 3 HOURS TODAY. MEDIPORT IS ACCESSED AND LR RUNNING AT 75ML/HR. PATIENT IS PLEASANT AND COOPERATIVE WITH CARE, ABLE TO MAKE NEEDS KNOWN.
[2023-03-03 19:31] VITALS: BP 124/90
--- NOTE | 2023-03-04 04:17 | NUR ---
SHIFT SUMMARY 47 YR F ADMITTED ON 03/03/23 FOR SEVERE GASTROPERESIS AND INTRACTABLE VOMITING. FULL CODE. PT HAS HAD SEVERE NAUSEA WITH VOMITING FOR THE FIRST HALF OF THIS SHIFT. ANTIEMETICS ARE NOT FULLY EFFECTIVE. SHE C/O OF ABDOMINAL PAIN AND STATES THAT IT IS PARTIALLY DUE TO HUNGER. SHE TRIED TO EAT SOME JELLO BUT WAS ONLY ABLE TO TAKE A BITE OR TWO BEFORE SHE THREW IT UP. LATER IN THE SHIFT SHE WAS ABLE TO SLEEP FOR A FEW HOURS. LR INFUSING @ 75.
[2023-03-04 04:31] VITALS: BP 137/87
[2023-03-04 04:56] LABS: Hematocrit 35.6 % (33.0-51.0); Mean Corpuscular HGB 25.9 pg (26.0-34.0); Mean Corpuscular HGB Conc 30.9 g/dL (31.5-36.5); Mean Corpuscular Volume 84 fL (80-100); Mean Platelet Volume 9.9 fL (9.1-12.4); Platelet Count 327 K/mm3 (150-400); RDW Coefficient Variation 14.8 % (11.7-14.2); RDW Standard Deviation 44.8 fL (35.1-46.3); Red Blood Cell Count 4.24 M/mm3 (3.80-5.20); White Blood Cell Count 13.95 K/mm3 (4.00-11.30)
[2023-03-04 05:36] LABS: Albumin, Blood 3.3 g/dL (3.4-5.0); Anion Gap 8 mmol/L (6-16); Blood Urea Nitrogen 10 mg/dL (8-24); Bun/Creatinine Ratio 12.8 (12.0-20.0); CO2, Blood 25 mmol/L (21-32); Calcium, Blood 8.7 mg/dL (8.5-10.1); Chloride, Blood 104 mmol/L (98-108); Creatinine, Blood 0.78 mg/dL (0.40-1.00); Glomerular Filtration Rate 95 (60-); Glucose, Blood 89 mg/dL (70-99); Phosphorus, Blood 2.3 mg/dL (2.5-4.9); Potassium, Blood 3.8 mmol/L (3.5-5.5); Sodium, Blood 137 mmol/L (136-145)
[2023-03-04 07:04] VITALS: BP 148/82
[2023-03-04 16:01] VITALS: BP 126/72
--- NOTE | 2023-03-04 17:18 | NUR ---
PATIENT CONTINUES TO HAVE PERSISTENT N/V THROUGHOUT THE DAY DESPITE MULTIPLE MEDICATIONS TO TREAT. ABDOMINAL PAIN BETTER CONTROLLED WITH INCREASED FREQUENCY OF DILAUDID. VSS, ON RA. INCREASED WEAKNESS TODAY AND IS NOW USING BEDSIDE COMMODE INSTEAD OF AMBLATING TO RESTROOM. MEDIPORT ACCESSED AND LR INFUSING AT 75ML/HR. PATIENT UNABLE TO TOLERATE CLEAR LIQUID DIET.
[2023-03-04 20:45] VITALS: BP 172/98
--- NOTE | 2023-03-05 04:05 | NUR ---
SHIFT SUMMARY 47 YR F ADMITTED ON 03/03/23 FOR GASTROPERESIS. FULL CODE. NO ACUTE CHANGES THIS SHIFT. PT IS STILL HAVING PAIN AT 8-9 BUT STATES THAT IT IS BETTER CONTROLLED WITH MORE FREQUENT DOSING OF PAIN MEDS. NAUSEA IS CONSTANT AND ANTIEMETICS ARE BEING GIVEN REGULARLY. VOMITING HAS IMPROVED THIS SHIFT. SHE TRIED CHICKEN BROTH BUT WAS ONLY ABLE TO GET A COUPLE OF SIPS DOWN BEFORE SHE VOMITED.
[2023-03-05 05:39] LABS: Hemoglobin 10.2 g/dL (11.5-16.0); Mean Corpuscular HGB 25.8 pg (26.0-34.0); Mean Corpuscular HGB Conc 30.9 g/dL (31.5-36.5); Mean Corpuscular Volume 84 fL (80-100); Mean Platelet Volume 9.9 fL (9.1-12.4); Platelet Count 253 K/mm3 (150-400); RDW Coefficient Variation 14.5 % (11.7-14.2); RDW Standard Deviation 44.5 fL (35.1-46.3); Red Blood Cell Count 3.95 M/mm3 (3.80-5.20)
[2023-03-05 05:54] LABS: Albumin, Blood 2.9 g/dL (3.4-5.0); Anion Gap 6 mmol/L (6-16); Blood Urea Nitrogen 7 mg/dL (8-24); Bun/Creatinine Ratio 8.9 (12.0-20.0); CO2, Blood 27 mmol/L (21-32); Chloride, Blood 105 mmol/L (98-108); Creatinine, Blood 0.79 mg/dL (0.40-1.00); Glomerular Filtration Rate 93 (60-); Glucose, Blood 82 mg/dL (70-99); Magnesium, Blood 1.8 mg/dL (1.6-2.4); Phosphorus, Blood 2.5 mg/dL (2.5-4.9); Potassium, Blood 3.5 mmol/L (3.5-5.5); Sodium, Blood 138 mmol/L (136-145)
[2023-03-05 07:29] VITALS: BP 169/86
--- NOTE | 2023-03-05 11:17 | NUR ---
Pt. is awake in bed and welcomes my visit. Pt. displays evidence of being very familiar with her condition, and being aware of treatments and prognosis. Facilitate a life review and eestablish rapport. Pt. displays evidence of being open, aware and engaged. Prayed with Pt. Pt. verbalized gratitude for the spiritual care visit.
--- NOTE | 2023-03-05 17:43 | NUR ---
PT IS A&O X4, ANSWERS QUESTIONS APPROPRIATELY. REPORTS ABDOMINAL PAIN AND NAUSEA. MANAGES PAIN WITH IV DILAUDED AND NAUSEA WITH SCHEDULED IV REGLAN AND PRN COMPAZINE AND ZOFRAN. PT SAID "MEDICATIONS ARE LIKE A BANDAID AND NOT REALLY CONTROLLING MY SYMPTOMS. NOT TOLERANT TO MEALS AND/OR ANYTHING BY MOUTH. VITALS ARE STABLE. WILL CONTINUE PLAN OF CARE.
[2023-03-05 20:07] VITALS: BP 145/90
[2023-03-06 04:03] VITALS: BP 124/81
--- NOTE | 2023-03-06 05:30 | NUR ---
PATIENT REMAINS ALERT AND ORIENTED X4, COOPERATIVE WITH CARE. IV LR INFUSING AT 75/H, N/V AND ABD PAIN TREATED PER JAN THROUGHT R CHEST PORT. JUST PO WATER CONSUMED OVER NIGHT. VSS. WILL CONT TO MONITOR.
[2023-03-06 07:45] VITALS: BP 128/89
[2023-03-06 09:57] LABS: Albumin, Blood 3.2 g/dL (3.4-5.0); Anion Gap 5 mmol/L (6-16); Blood Urea Nitrogen 5 mg/dL (8-24); Bun/Creatinine Ratio 6.6 (12.0-20.0); CO2, Blood 29 mmol/L (21-32); Calcium, Blood 8.4 mg/dL (8.5-10.1); Chloride, Blood 104 mmol/L (98-108); Creatinine, Blood 0.75 mg/dL (0.40-1.00); Glomerular Filtration Rate 99 (60-); Glucose, Blood 116 mg/dL (70-99); Phosphorus, Blood 2.3 mg/dL (2.5-4.9); Potassium, Blood 3.3 mmol/L (3.5-5.5); Sodium, Blood 138 mmol/L (136-145)
[2023-03-06 15:32] VITALS: BP 137/88
--- NOTE | 2023-03-06 17:17 | NUR ---
PT A&OX4, CALLS APPROPRIATELY. PATIENT REPORTS ABD PAIN AND NAUSEA, PRN DILAUDID, COMPAZINE, AND ZOFRAN GIVEN TO CONTROL PAIN AND NAUSEA. VITALS STABLE. POTASSIUM LEVEL REPORTED AT 3.3 THIS AM AT 0909, POTASSIUM PHOSPHATE ADMINISTERED VIA IV. PT STABLE FOR DISCHARGE. STUDENT COUNSELOR SET UP HOME HEALTH REFERAL FOR WEDNESDAY. DISCHARGE EDUCATION PROVIDED, PATIENT VERBALIZED UNDERSTANDING.
== END 2023-03-06 17:55 | disposition home health service (06) | DRG 392 ==
LOC: ER 10:26 → MEDS 10:27
PROVIDERS: Internal Medicine; Nurse Practitioner Acute Care; Student in an Organized Health Care Education/Training Program; ADMIT Internal Medicine
DX: K31.84 Gastroparesis (principal); K20.90 Esophagitis, unspecified without bleeding; E87.6 Hypokalemia; E83.42 Hypomagnesemia; K44.9 Diaphragmatic hernia without obstruction or gangrene; M79.7 Fibromyalgia; E83.39 Other disorders of phosphorus metabolism; F41.8 Other specified anxiety disorders; D72.829 Elevated white blood cell count, unspecified; F12.90 Cannabis use, unspecified, uncomplicated; K21.9 Gastro-esophageal reflux disease without esophagitis; K52.9 Noninfective gastroenteritis and colitis, unspecified; E86.0 Dehydration; J45.909 Unspecified asthma, uncomplicated; E66.9 Obesity, unspecified; E28.2 Polycystic ovarian syndrome; N73.9 Female pelvic inflammatory disease, unspecified; G43.909 Migraine, unspecified, not intractable, without status migrainosus; N80.9 Endometriosis, unspecified; Z87.442 Personal history of urinary calculi; Z90.49 Acquired absence of other specified parts of digestive tract; Z90.89 Acquired absence of other organs; Z87.891 Personal history of nicotine dependence; Z90.710 Acquired absence of both cervix and uterus; Z98.890 Other specified postprocedural states; Z88.0 Allergy status to penicillin; Z88.2 Allergy status to sulfonamides; Z91.040 Latex allergy status; Z88.6 Allergy status to analgesic agent; Z88.5 Allergy status to narcotic agent; Z79.899 Other long term (current) drug therapy
CPT/HCPCS: 74177; 80048; 80053; 80069; 81001; 82248; 83690; 83735; 85025; 85027; 93005; 93010; 94640; 94664; 94760; 96361; 96365; 96375; 96376; 99285-25; A9270; C9113; G0378; J0780; J1100; J1170; J1790; J2405; J2550; J2765; J3480; J7060; J7120; Q9967

== ENCOUNTER 2023-03-27 00:51 | Day surgery (SDC) | payer MEDICARE, OTHER ==
[2023-03-27 10:24] VITALS: BP 140/101
[2023-03-27] MEDS ORDERED: Ondansetron4 MG/2 ML IV (10:31)
--- NOTE | 2023-03-27 17:06 | NUR ---
PT ASKED THAT I CALL UP TO [facility] AND TELL THEM THAT SHE WILL CONTINUE TO NEED HER IV INFUSIONS.
[2023-03-28] MEDS ORDERED: Percocet 5-3251 EACH PO (13:14)
[2023-03-28] MEDS ORDERED: CEFD300 PO (13:14)
[2023-03-28] MEDS ORDERED: Flagyl500 MG PO (13:14)
== END 2023-03-27 10:32 | disposition home or self-care (01) ==
LOC: ATC 00:51
DX: Z45.2 Encounter for adjustment and management of vascular access device (principal); K31.84 Gastroparesis; K22.4 Dyskinesia of esophagus; R13.14 Dysphagia, pharyngoesophageal phase; J86.0 Pyothorax with fistula; K44.9 Diaphragmatic hernia without obstruction or gangrene; Z88.0 Allergy status to penicillin; Z88.2 Allergy status to sulfonamides; Z79.899 Other long term (current) drug therapy; J45.40 Moderate persistent asthma, uncomplicated
CPT/HCPCS: 96523; J1642

== ENCOUNTER 2023-05-08 08:00 | Day surgery (SDC) | payer MEDICARE, OTHER ==
[~2023-05-08 08:00] MED LIST changes: +CEFD300 PO; +Flagyl500 MG PO; +Ondansetron4 MG/2 ML IV; +Percocet 5-3251 EACH PO
[2023-05-08 11:45] VITALS: BP 110/56
== END 2023-05-08 23:59 | disposition home or self-care (01) ==
LOC: ATC 08:00
DX: Z45.2 Encounter for adjustment and management of vascular access device (principal); K31.84 Gastroparesis; K22.4 Dyskinesia of esophagus; R13.14 Dysphagia, pharyngoesophageal phase; J86.0 Pyothorax with fistula; K44.9 Diaphragmatic hernia without obstruction or gangrene
CPT/HCPCS: 96523; J1642

== ENCOUNTER 2023-05-15 00:16 | Day surgery (SDC) | payer MEDICARE, OTHER ==
[2023-05-15 09:08] VITALS: BP 121/89
== END 2023-05-15 09:19 | disposition home or self-care (01) ==
LOC: ATC 00:16
DX: Z45.2 Encounter for adjustment and management of vascular access device (principal); K31.84 Gastroparesis; K22.4 Dyskinesia of esophagus; R13.14 Dysphagia, pharyngoesophageal phase; J86.0 Pyothorax with fistula; K44.9 Diaphragmatic hernia without obstruction or gangrene; Z88.2 Allergy status to sulfonamides; Z88.0 Allergy status to penicillin
CPT/HCPCS: 96523; J1642

== ENCOUNTER 2023-05-22 00:05 | Day surgery (SDC) | payer MEDICARE, OTHER ==
[2023-05-22 11:08] VITALS: BP 112/65
[2023-05-22] MEDS ORDERED: METPRE4DP PO (11:32)
[2023-05-22] MEDS ORDERED: CLIN150 PO (11:33)
== END 2023-05-22 11:20 | disposition home or self-care (01) ==
LOC: ATC 00:05
DX: K31.84 Gastroparesis (principal); K22.4 Dyskinesia of esophagus; R13.14 Dysphagia, pharyngoesophageal phase; J86.0 Pyothorax with fistula; K44.9 Diaphragmatic hernia without obstruction or gangrene; Z45.2 Encounter for adjustment and management of vascular access device
CPT/HCPCS: J1642

== ENCOUNTER 2023-05-29 01:16 | Day surgery (SDC) | payer MEDICARE, OTHER ==
[~2023-05-29 01:16] MED LIST changes: +CLIN150 PO; +METPRE4DP PO
[2023-05-29 11:06] VITALS: BP 105/76
== END 2023-05-29 11:16 | disposition home or self-care (01) ==
LOC: ATC 01:16
DX: Z45.2 Encounter for adjustment and management of vascular access device (principal); K31.84 Gastroparesis; K22.4 Dyskinesia of esophagus; R13.14 Dysphagia, pharyngoesophageal phase; J86.0 Pyothorax with fistula; K44.9 Diaphragmatic hernia without obstruction or gangrene
CPT/HCPCS: 96523; J1642

== ENCOUNTER 2023-06-05 09:36 | Day surgery (SDC) | payer MEDICARE, OTHER | END 2023-06-05 09:48 | disposition home or self-care (01) | LOC: ATC 09:36 | DX: Z45.2 Encounter for adjustment and management of vascular access device (principal); K31.84 Gastroparesis; K22.4 Dyskinesia of esophagus; R13.14 Dysphagia, pharyngoesophageal phase; J86.0 Pyothorax with fistula; K44.9 Diaphragmatic hernia without obstruction or gangrene; Z88.0 Allergy status to penicillin; Z88.2 Allergy status to sulfonamides; Z79.899 Other long term (current) drug therapy | CPT/HCPCS: J1642 ==

== ENCOUNTER 2023-06-12 00:50 | Day surgery (SDC) | payer MEDICARE, OTHER ==
[2023-06-12 10:06] VITALS: BP 127/90
== END 2023-06-12 10:06 | disposition home or self-care (01) ==
LOC: ATC 00:50
DX: Z45.2 Encounter for adjustment and management of vascular access device (principal); K31.84 Gastroparesis; K22.4 Dyskinesia of esophagus; R13.14 Dysphagia, pharyngoesophageal phase; J86.0 Pyothorax with fistula; K44.9 Diaphragmatic hernia without obstruction or gangrene
CPT/HCPCS: 96523; J1642

== ENCOUNTER 2023-06-19 06:20 | Day surgery (SDC) | payer MEDICARE, OTHER ==
[2023-06-19 10:29] VITALS: BP 124/91
== END 2023-06-19 10:29 | disposition home or self-care (01) ==
LOC: ATC 06:20
DX: Z45.2 Encounter for adjustment and management of vascular access device (principal); K31.84 Gastroparesis; K22.4 Dyskinesia of esophagus; R13.14 Dysphagia, pharyngoesophageal phase; J86.0 Pyothorax with fistula; K44.9 Diaphragmatic hernia without obstruction or gangrene
CPT/HCPCS: 96523; J1642

== ENCOUNTER 2023-06-26 00:10 | Day surgery (SDC) | payer MEDICARE, OTHER ==
[2023-06-26 09:17] VITALS: BP 122/81
== END 2023-06-26 09:20 | disposition home or self-care (01) ==
LOC: ATC 00:10
DX: Z45.2 Encounter for adjustment and management of vascular access device (principal); K31.84 Gastroparesis; K44.9 Diaphragmatic hernia without obstruction or gangrene; K22.4 Dyskinesia of esophagus; R13.14 Dysphagia, pharyngoesophageal phase; J86.0 Pyothorax with fistula; Z88.0 Allergy status to penicillin; Z88.2 Allergy status to sulfonamides; Z87.891 Personal history of nicotine dependence
CPT/HCPCS: 96523; J1642

== ENCOUNTER 2023-07-03 00:50 | Day surgery (SDC) | payer MEDICARE, OTHER ==
[2023-07-03 09:01] VITALS: BP 100/75
== END 2023-07-03 09:09 | disposition home or self-care (01) ==
LOC: ATC 00:50
DX: Z45.2 Encounter for adjustment and management of vascular access device (principal); K31.84 Gastroparesis; K22.4 Dyskinesia of esophagus; R13.14 Dysphagia, pharyngoesophageal phase; J86.0 Pyothorax with fistula; K44.9 Diaphragmatic hernia without obstruction or gangrene
CPT/HCPCS: 96523; J1642

== ENCOUNTER 2023-07-10 02:11 | Day surgery (SDC) | payer MEDICARE, OTHER ==
[2023-07-10 10:43] VITALS: BP 105/81
== END 2023-07-10 10:52 | disposition home or self-care (01) ==
LOC: ATC 02:11
DX: K31.84 Gastroparesis (principal); K22.4 Dyskinesia of esophagus; R13.14 Dysphagia, pharyngoesophageal phase; J86.0 Pyothorax with fistula; Z45.2 Encounter for adjustment and management of vascular access device; K44.9 Diaphragmatic hernia without obstruction or gangrene; Z88.2 Allergy status to sulfonamides; Z88.0 Allergy status to penicillin
CPT/HCPCS: 96523; J1642

== ENCOUNTER 2023-07-17 08:59 | Day surgery (SDC) | payer MEDICARE, OTHER ==
[2023-07-17 09:06] VITALS: BP 129/86
== END 2023-07-17 09:14 | disposition home or self-care (01) ==
LOC: ATC 08:59
DX: Z45.2 Encounter for adjustment and management of vascular access device (principal); K31.84 Gastroparesis; K22.4 Dyskinesia of esophagus; R13.14 Dysphagia, pharyngoesophageal phase; J86.0 Pyothorax with fistula; K44.9 Diaphragmatic hernia without obstruction or gangrene; Z88.0 Allergy status to penicillin; Z88.2 Allergy status to sulfonamides; Z79.899 Other long term (current) drug therapy
CPT/HCPCS: 96523; J1642

== ENCOUNTER 2023-07-24 02:42 | Day surgery (SDC) | payer MEDICARE, OTHER ==
[2023-07-24 11:05] VITALS: BP 117/91
== END 2023-07-24 11:05 | disposition home or self-care (01) ==
LOC: ATC 02:42
DX: Z45.2 Encounter for adjustment and management of vascular access device (principal); K31.84 Gastroparesis; K22.4 Dyskinesia of esophagus; R13.14 Dysphagia, pharyngoesophageal phase; J86.0 Pyothorax with fistula; K44.9 Diaphragmatic hernia without obstruction or gangrene; Z88.0 Allergy status to penicillin; Z88.2 Allergy status to sulfonamides
CPT/HCPCS: 99211; J1642

== ENCOUNTER 2023-07-31 02:35 | Day surgery (SDC) | payer MEDICARE, OTHER ==
[2023-07-31 11:50] VITALS: BP 117/70
== END 2023-07-31 11:52 | disposition home or self-care (01) ==
LOC: ATC 02:35
DX: Z45.2 Encounter for adjustment and management of vascular access device (principal); K31.84 Gastroparesis; K22.4 Dyskinesia of esophagus; R13.14 Dysphagia, pharyngoesophageal phase; J86.0 Pyothorax with fistula; K44.9 Diaphragmatic hernia without obstruction or gangrene
CPT/HCPCS: J1642

== ENCOUNTER 2023-08-07 01:14 | Day surgery (SDC) | payer MEDICARE, OTHER ==
[2023-08-07 11:31] VITALS: BP 122/82
== END 2023-08-07 11:40 | disposition home or self-care (01) ==
LOC: ATC 01:14
DX: Z45.2 Encounter for adjustment and management of vascular access device (principal); K31.84 Gastroparesis; K22.4 Dyskinesia of esophagus; R13.14 Dysphagia, pharyngoesophageal phase; J86.0 Pyothorax with fistula; K44.9 Diaphragmatic hernia without obstruction or gangrene
CPT/HCPCS: 96523; J1642

== ENCOUNTER 2023-08-09 11:19 | Inpatient (IN) | payer MEDICARE, OTHER ==
[~2023-08-09] VITALS: Ht 170.2 cm; Wt 87.4 kg
[2023-08-09 12:27] LABS: BASOPHILS ABSOLUTE AUTO 0.01 K/mm3 (0.00-0.23); BASOPHILS PERCENT AUTO 0 % (0-2); EOSINOPHILS ABSOLUTE AUTO 0.01 K/mm3 (0.00-0.68); EOSINOPHILS PERCENT AUTO 0 % (0-6); Hemoglobin 10.3 g/dL (11.5-16.0); IMMATURE GRAN ABSOLUTE AUTO 0.05 K/mm3 (0.00-0.10); IMMATURE GRAN PERCENT AUTO 0 % (0-1); LYMPHOCYTES ABSOLUTE AUTO 0.83 K/mm3 (0.84-5.20); LYMPHOCYTES PERCENT AUTO 8 % (21-46); MONOCYTES ABSOLUTE AUTO 0.29 K/mm3 (0.16-1.47); MONOCYTES PERCENT AUTO 3 % (4-13); Mean Corpuscular HGB 24.3 pg (26.0-34.0); Mean Corpuscular HGB Conc 30.3 g/dL (31.5-36.5); Mean Corpuscular Volume 80 fL (80-100); Mean Platelet Volume 10.3 fL (9.1-12.4); NEUTROPHILS ABSOLUTE AUTO 9.95 K/mm3 (1.96-9.15); NEUTROPHILS PERCENT AUTO 89 % (41-73); Platelet Count 232 K/mm3 (150-400); RDW Coefficient Variation 18.3 % (11.7-14.2); RDW Standard Deviation 52.8 fL (35.1-46.3); Red Blood Cell Count 4.24 M/mm3 (3.80-5.20); White Blood Cell Count 11.14 K/mm3 (4.00-11.30)
[2023-08-09 12:46] LABS: Albumin, Blood 3.8 g/dL (3.4-5.0); Bilirubin, Total 0.6 mg/dL (0.1-1.0); Bun/Creatinine Ratio 12.1 (12.0-20.0); Calcium, Blood 9.3 mg/dL (8.5-10.1); Creatinine, Blood 0.83 mg/dL (0.40-1.00); Globulin, Blood 3.9 g/dL (2.2-4.0); Potassium, Blood 3.8 mmol/L (3.5-5.5); Total Protein, Blood 7.7 g/dL (6.4-8.2)
[2023-08-09 18:03] VITALS: BP 158/90
--- NOTE | 2023-08-09 18:25 | NUR ---
ADMIT: PT ARRIVED TO MEDICAL FLOOR @1800. PT ARRIVED NAUSEOUS AND BEGAN THROWING UP SHORTLY AFTER ARRIVAL. PUKE BAG AND NAUSEA MEDS PROVIDED. PAIN MEDICATIONS GIVEN PER EMAR. LR INFUSING @100/HR IN R. CHEST POWERPORT. PT CURRENTLY RESTING C/O COMPLAINTS.
[2023-08-09 19:04] VITALS: BP 170/94
[2023-08-10 03:09] VITALS: BP 112/74
--- NOTE | 2023-08-10 03:29 | NUR ---
SHIFT SUMMARY PT A&O, COOPERATIVE WITH CARE. PT COMPLAINED OF NAUSEA AND WAS ACTIVELY VOMITING DURING THE SHIFT. GAVE PUKE BAG, ICE CHIPS, AMD MEDICATED PER EMAR. PT ON CLEAR LIQUID DIET. LR INFUISING AT 100 ML/HR. PT CONTINENT, SBA TO BATHROOM DUE TO WEAKNESS. MEDIPORT TO RIGHT CHEST. PT COMPLAINTS OF GENERALIZED PAIN AND ABDOMINAL PAIN-TREATED PER EMAR. BED KEPT IN THE LOWEAT POSITION WITH CALL LIGHT WITHIN REACH. PT CALLS APPROPRIATELY.
[2023-08-10 06:31] LABS: Bun/Creatinine Ratio 8.1 (12.0-20.0); Calcium, Blood 8.5 mg/dL (8.5-10.1); Creatinine, Blood 0.86 mg/dL (0.40-1.00); Potassium, Blood 3.4 mmol/L (3.5-5.5)
[2023-08-10 07:38] VITALS: BP 115/85
[2023-08-10 14:41] VITALS: BP 117/78
--- NOTE | 2023-08-10 16:05 | NUR ---
NOTE PT ALERT ORIENTED. SHE HAS BEEN THROUGH THIS BEFORE. SHE ASKS FOR MEDICATIONS. SHE IS FAMILIAR [place] ALL. RIGHT CHEST POER PORT INFUSING. DRESSING CD&I. LR INFUSING ORDERED. CONTINUED ABD CRAMPING. CONTINUED NAUSEA. SHE DID STATE SHE FEELS A BIT BETTER THAN YESTERDAY. CONTINUE POC.
[2023-08-10 19:36] VITALS: BP 136/85
[2023-08-11 03:49] VITALS: BP 131/84
--- NOTE | 2023-08-11 05:44 | NUR ---
SHIFT SUMMARY PATIENT A/Ox4, BRIGHT AFFECT. VSS, SpO2 94% ON RA. C/O ONGOING NAUSEA AND INTERMITTENT ABD PAIN/CRAMPING R/T N/V, MEDICATED PER JAN. RIGHT UPPER CHEST MEDIPORT ACCESSED AND INFUSING NS W/20MEQ K AT 100mL/HR. IS INDEPENDENT IN ROOM. NO ACUTE CHANGES NOTED OVERNIGHT. BED IN LOW POSITION, CALL LIGHT IN REACH.
[2023-08-11 06:08] LABS: Albumin, Blood 2.9 g/dL (3.4-5.0); Anion Gap 4 mmol/L (6-16); Blood Urea Nitrogen 8 mg/dL (8-24); Bun/Creatinine Ratio 8.8 (12.0-20.0); CO2, Blood 27 mmol/L (21-32); Calcium, Blood 8.1 mg/dL (8.5-10.1); Chloride, Blood 110 mmol/L (98-108); Creatinine, Blood 0.91 mg/dL (0.40-1.00); Glomerular Filtration Rate 79 (60-); Glucose, Blood 86 mg/dL (70-99); Magnesium, Blood 1.9 mg/dL (1.6-2.4); Phosphorus, Blood 2.4 mg/dL (2.5-4.9); Potassium, Blood 3.4 mmol/L (3.5-5.5); Sodium, Blood 141 mmol/L (136-145)
[2023-08-11 07:22] VITALS: BP 107/79
[2023-08-11 15:41] VITALS: BP 123/87
--- NOTE | 2023-08-11 15:53 | NUR ---
SHIFT NOTE PT RECEIVED HER ROUTINE PAIN MEDICATIONS. SHE IS FEELING MUCH BETTER. ECHO DONE. FIRST DAY OF STRESS TEST DONE. HEPARIN GTT INFUSING PER PHARMACY DIRECTION. LEFT AC INFITRATE RED. LESS SWOLLEN AND NO LONGER TENDER. TALKED WITH PHARMACY ABOUT THE INFILTRATE. PHARMACIST HAD NO RECOMMENDATION. PT UP TO BATHROOM SBA. GAIT STEADY. CHEST PRESSURE HAS RESOLVED. EATING WELL. WANTS TO TAKE A NAP. CONTINUE POC.
[2023-08-11 19:22] VITALS: BP 131/101
[2023-08-12 04:36] VITALS: BP 138/68
--- NOTE | 2023-08-12 05:03 | NUR ---
SHIFT SUMMARY A/Ox4, PLEASANT/COOPERATIVE. VSS ON RA. C/O ONGOING NAUSEA AND INTERMITTENT ABD PAIN/CRAMPING R/T N/V, MEDICATED PER JAN. RIGHT UPPER CHEST MEDIPORT ACCESSED AND INFUSING NS AT 75mL/HR. INDEPENDENT IN ROOM. NO ACUTE CHANGES NOTED OVERNIGHT. BED IN LOW POSITION, CALL LIGHT IN REACH.
[2023-08-12 08:38] VITALS: BP 129/80
[2023-08-12 10:40] LABS: Anion Gap 6 mmol/L (6-16); Blood Urea Nitrogen 4 mg/dL (8-24); Bun/Creatinine Ratio 4.7 (12.0-20.0); CO2, Blood 27 mmol/L (21-32); Calcium, Blood 7.9 mg/dL (8.5-10.1); Chloride, Blood 109 mmol/L (98-108); Creatinine, Blood 0.85 mg/dL (0.40-1.00); Glomerular Filtration Rate 86 (60-); Glucose, Blood 97 mg/dL (70-99); Phosphorus, Blood 2.5 mg/dL (2.5-4.9); Potassium, Blood 3.5 mmol/L (3.5-5.5); Sodium, Blood 142 mmol/L (136-145)
--- NOTE | 2023-08-12 11:14 | NUR ---
ASSUMED CARE OF PATIENT REPORT RECEIVED FROM TAMIA DENIS. ASSUMED CARE OF PATIENT
--- NOTE | 2023-08-12 18:36 | NUR ---
SHIFT SUMMARY PATIENT CONTINUES TO HAVE PROBLEMS OF NAUSEA AND VOMITTING. PATIENT STATES THAT IT IS WORSE THAN WHAT SHE NORMALLY DEALS WITH AT HOME. PATIENT DENIES ANY NEW STRESSORS IN HER LIFE. CURRENTLY WORKING WITH GI SPECIALIST ABOUT POSSIBLY DOING TPN AT HOME. PATIENT STATES SHE DOES NOT EAT MUCH AT HOME AND OFTEN VOMITS IT BACK UP. PATIENT ON MULTIPLE MEDICATIONS FOR N/V WITH NO REAL RELIEF. RESPIRATORY STATUS VARIES RELATED TO ANXIETY AND VOMITING. PATIENT HAS A HISTORY OF TRACHEAL MALASIA AND FISTULA. PATIENT RESTING MOST OF THE DAY. ATTEMPTING TO TRY TO KEEP CLEAR LIQUIDS DOWN WITH LITTLE SUCCESS. IV FLUIDS CONTINUE TO INFUSE THROUGH MEDIPORT.
[2023-08-12 19:19] VITALS: BP 116/88
[2023-08-13 02:57] VITALS: BP 124/85
[2023-08-13 06:13] LABS: Bun/Creatinine Ratio 3.4 (12.0-20.0); Calcium, Blood 7.9 mg/dL (8.5-10.1); Creatinine, Blood 0.87 mg/dL (0.40-1.00); Potassium, Blood 3.5 mmol/L (3.5-5.5)
--- NOTE | 2023-08-13 07:20 | NUR ---
Shift Summary Pt experienced heavy nausea and abdominal pain. Medicated Q2 for nausea per EMAR with 3 different medications. Administered IV Dilauded per EMAR for pain. Pt was able to get 4-6 hours sleep, although sleep was frequently interrupted by pain and nausea. AOx4, independent in the room, pleasant and cooperative.
[2023-08-13 07:41] VITALS: BP 128/91
[2023-08-13 14:57] VITALS: BP 127/94
--- NOTE | 2023-08-13 17:31 | NUR ---
SHIFT SUMMARY PATIENT CONTINUES TO HAVE NAUSEA AND VOMITING. PATIENT CONTINUES ON CLEAR LIQUID DIET. PATIENT HAS HX OF NAUSA AND VOMITTING AT HOME RELATED TO HER GASTRIC PARESIS. PATIENT INDEPENDENT IN THE ROOM. FLUIDS INFUSING THROUGH MEDIPORT. PATIENT MEDICATED PER MAR FOR NAUSEA AND VOMITING WITH LITTLE TO NO RELIEF. PATIENT CONTINUES TO HAVE ABDOMINAL PAIN THAT IS WORSE THAN BASELINE. PATIENT MEDICATED WITH ATIVAN X1 FOR INCREASED ANXIETY WITH SOME RELIEF. PATIENT VERBALIZING FRUSTRATION ABOUT CURRENT SITUATION AND EVEN TEARFUL.
[2023-08-13 19:32] VITALS: BP 120/76
[2023-08-14 02:33] VITALS: BP 122/75
--- NOTE | 2023-08-14 03:48 | NUR ---
SHIFT SUMMERY, PT RESTING IN BED, MEDICATED AT BEGINGIN OF SHIFT FOR PAIN AND NAUSEA. PT SLEPT FOR SEVRAL HRS THEN AWOKE AND REQUESTED MEDS FOR PAIN AND NAUSEA. PT NOW RESTING IN BED, AND WATCHING TV. CALL LIGHT IN REACH.
[2023-08-14 07:30] VITALS: BP 134/95
[2023-08-14] MEDS ORDERED: PROC5 PO (11:56)
[2023-08-14] MEDS ORDERED: PROC25S PR (11:57)
--- NOTE | 2023-08-14 12:45 | NUR ---
SHIFT SUMMARY AND DISCHARGE. PATIENT DISCHARGED TO HOME. DISCHARGE INSTRUCTIONS REVIEWED WITH PATIENT AND SPOUSE. MEDIPORT NEEDLE CHANGED PER PROTOCOL. PATIENT DOES DAILY INFUSIONS OF FLUIDS AT HOME. NO LONGER VOMITTING AND FEELING BETTER. PATIENT INDEPENDENT IN THE ROOM. ROOM CHECK DONE WITH PATIENT. BELONGINGS SENT HOME WITH PATIENT. PATIENT TRANSPORTED OUT VIA WHEELCHAIR.
== END 2023-08-14 12:35 | disposition home health service (06) | DRG 392 ==
LOC: ER 11:19 → MEDS 11:20 → ENPENDDIS 08-14 10:34 → MEDS 08-14 12:35
PROVIDERS: Internal Medicine; Student in an Organized Health Care Education/Training Program; ADMIT Internal Medicine
DX: K31.84 Gastroparesis (principal); J45.901 Unspecified asthma with (acute) exacerbation; R11.2 Nausea with vomiting, unspecified; F41.9 Anxiety disorder, unspecified; F12.10 Cannabis abuse, uncomplicated; E86.0 Dehydration; E87.6 Hypokalemia; E83.39 Other disorders of phosphorus metabolism; G43.909 Migraine, unspecified, not intractable, without status migrainosus; G89.4 Chronic pain syndrome; K21.9 Gastro-esophageal reflux disease without esophagitis; Z88.2 Allergy status to sulfonamides; Z88.5 Allergy status to narcotic agent; Z88.0 Allergy status to penicillin; Z91.040 Latex allergy status; Z79.899 Other long term (current) drug therapy; Z79.51 Long term (current) use of inhaled steroids; Z79.891 Long term (current) use of opiate analgesic; Z79.2 Long term (current) use of antibiotics; Z87.442 Personal history of urinary calculi; Z87.19 Personal history of other diseases of the digestive system; Z98.890 Other specified postprocedural states; Z90.49 Acquired absence of other specified parts of digestive tract; Z90.710 Acquired absence of both cervix and uterus
CPT/HCPCS: 80048; 80053; 80069; 83690; 83735; 85025; 94640; 94664; 94760; 96361; 96365; 96366; 96374; 96375; 96376; 99285-25; A9270; C9113; G0378; J0780; J1170; J1200; J1630; J2405; J2765; J3480; J7030; J7060; J7120

== ENCOUNTER 2023-09-29 05:52 | Inpatient (IN) | payer MEDICARE, OTHER ==
[~2023-09-29] VITALS: Ht 170.2 cm; Wt 84.9 kg
[2023-09-29] VITALS (20 sets, daily range): BP systolic 142–204; BP diastolic 90–159
[~2023-09-29 05:52] MED LIST changes: +PROC5 PO; -Zyprexa Zydis5 MG PO; +Zyprexa Zydis5 MG SL
[2023-09-29 06:49] LABS: BASOPHILS ABSOLUTE AUTO 0.03 K/mm3 (0.00-0.23); BASOPHILS PERCENT AUTO 0 % (0-2); EOSINOPHILS ABSOLUTE AUTO 0.04 K/mm3 (0.00-0.68); EOSINOPHILS PERCENT AUTO 0 % (0-6); Hematocrit 32.7 % (33.0-51.0); Hemoglobin 10.2 g/dL (11.5-16.0); IMMATURE GRAN ABSOLUTE AUTO 0.03 K/mm3 (0.00-0.10); IMMATURE GRAN PERCENT AUTO 0 % (0-1); LYMPHOCYTES ABSOLUTE AUTO 0.75 K/mm3 (0.84-5.20); LYMPHOCYTES PERCENT AUTO 7 % (21-46); MONOCYTES ABSOLUTE AUTO 0.26 K/mm3 (0.16-1.47); MONOCYTES PERCENT AUTO 2 % (4-13); Mean Corpuscular HGB 24.5 pg (26.0-34.0); Mean Corpuscular HGB Conc 31.2 g/dL (31.5-36.5); Mean Corpuscular Volume 78 fL (80-100); Mean Platelet Volume 10.3 fL (9.1-12.4); NEUTROPHILS PERCENT AUTO 90 % (41-73); Platelet Count 281 K/mm3 (150-400); RDW Coefficient Variation 16.3 % (11.7-14.2); RDW Standard Deviation 46.4 fL (35.1-46.3); Red Blood Cell Count 4.17 M/mm3 (3.80-5.20); White Blood Cell Count 10.81 K/mm3 (4.00-11.30)
[2023-09-29 07:15] LABS: Albumin, Blood 3.8 g/dL (3.4-5.0); Bilirubin, Total 0.5 mg/dL (0.1-1.0); Bun/Creatinine Ratio 12.9 (12.0-20.0); Calcium, Blood 9.5 mg/dL (8.5-10.1); Creatinine, Blood 0.7 mg/dL (0.40-1.00); Potassium, Blood 3.7 mmol/L (3.5-5.5); Total Protein, Blood 7.8 g/dL (6.4-8.2)
[2023-09-29 09:07] LABS: International Normalized Ratio 1.04; Prothrombin Time Results 10.9 Sec (9.7-11.5)
[2023-09-29] MEDS ORDERED: Amitriptyline H50 MG PO (10:47)
[2023-09-29 10:56] LABS: Hematocrit 32.8 % (33.0-51.0); Hemoglobin 9.8 g/dL (11.5-16.0)
--- NOTE | 2023-09-29 13:56 | NUR ---
PT HAS 20G IV TO RIGHT FA THAT FLUSHES WELL AND FLOWS TO GRAVITY.
--- NOTE | 2023-09-29 14:05 | NUR ---
09/29/23 1405 Shea Burton HISTORY, CHART, MEDICATIONS AND ALLERGIES REVIEWED BEFORE START OF PROCEDURE. PATIENT CONFIRMS NPO STATUS AND AGREES WITH SCHEDULED PROCEDURE. 3-LEAD EKG REVIEWED WITH PHYSICIAN PRIOR TO START OF PROCEDURE. MONITOR INTACT WITH CONTINUOUS PULSE OXIMETRY,CAPNOGRAPHY, 3-LEAD EKG, INTERMITTENT BP. SUPPLEMENTAL O2 TO BE TITRATED THROUGHOUT PROCEDURE TO MAINTAIN O2 SATURATION ABOVE 90%. PATIENT DETERMINED TO BE ASA APPROPRIATE FOR PROPOFOL SEDATION PRIOR TO START OF PROCEDURE BY .
[2023-09-29 15:21] LABS: Hematocrit 32.1 % (33.0-51.0); Hemoglobin 9.8 g/dL (11.5-16.0)
--- NOTE | 2023-09-29 17:22 | NUR ---
SHIFT SUMMARY PT IS A NEW ADMIT THIS AFTERNOON. SHE IS A&OX4, AND IS ABLE TO CALL APPROPRIATELY. SHE HAS BEEN HAVING N/V W/ COFFEE GROUND EMESIS FOR THREE DAYS. THE PT STATES THAT SHE HAS NOT BEEN ABLE TO KEEP ANY OF HER PO MEDICATIONS, FOOD, OR DRINKS DOWN SINCE WEDNESDAY EVENING. SHE AHS A EXTENSIVE HX OF GASTROPARESIS AND FOLLOWS GI OUTPT IN [place]. SHE HAD AN EGD THIS AFTERNOON AND THEY FOUND A HIATAL HERNIA THAT RUBS WHEN SHE WRETCHES. SHE WAS MADE MEDICAL STATUS OBS. WE STARTED HE ON MORE ANTINAUSEA MEDICATIONS, AND HAVE PROVIDED EDUCATION ABOUT HER CHRONIC DEPENDENCE ON PO DILAUDID.DR. STAHL CAME TO THE BEDSIDE AND HAD A CONVERSATION ABOUT DILAUDID AN DHOW IT CAN WORSEN THE GASTROPARESIS AND N/V THAT THE PT EXPERIENCES. PT RECEPTIVE. SHE HAS LR INFUSING THROUGH HER MEDIPORT. HER MEDIPORT WAS PLACED DUE TO HER EXTENSIVE HX OF GASTROPARESIS. FIRE IGNITION RISK HAS BEEN ASSESSED AND EDUCATION HAS BEEN PROVIDED.
[2023-09-29 19:15] LABS: Hematocrit 32.6 % (33.0-51.0); Hemoglobin 9.9 g/dL (11.5-16.0)
[2023-09-30] VITALS (7 sets, daily range): BP systolic 136–156; BP diastolic 79–110
[2023-09-30 04:36] LABS: BASOPHILS ABSOLUTE AUTO 0.03 K/mm3 (0.00-0.23); BASOPHILS PERCENT AUTO 0 % (0-2); EOSINOPHILS ABSOLUTE AUTO 0.12 K/mm3 (0.00-0.68); EOSINOPHILS PERCENT AUTO 1 % (0-6); Hematocrit 34.5 % (33.0-51.0); Hemoglobin 10.6 g/dL (11.5-16.0); IMMATURE GRAN ABSOLUTE AUTO 0.07 K/mm3 (0.00-0.10); IMMATURE GRAN PERCENT AUTO 1 % (0-1); LYMPHOCYTES ABSOLUTE AUTO 1.92 K/mm3 (0.84-5.20); LYMPHOCYTES PERCENT AUTO 15 % (21-46); MONOCYTES ABSOLUTE AUTO 0.65 K/mm3 (0.16-1.47); MONOCYTES PERCENT AUTO 5 % (4-13); Mean Corpuscular HGB 23.8 pg (26.0-34.0); Mean Corpuscular HGB Conc 30.7 g/dL (31.5-36.5); Mean Corpuscular Volume 77 fL (80-100); Mean Platelet Volume 9.7 fL (9.1-12.4); NEUTROPHILS ABSOLUTE AUTO 10.19 K/mm3 (1.96-9.15); NEUTROPHILS PERCENT AUTO 79 % (41-73); Platelet Count 302 K/mm3 (150-400); RDW Coefficient Variation 16.3 % (11.7-14.2); RDW Standard Deviation 45.5 fL (35.1-46.3); Red Blood Cell Count 4.46 M/mm3 (3.80-5.20); White Blood Cell Count 12.98 K/mm3 (4.00-11.30)
[2023-09-30 04:59] LABS: Albumin, Blood 3.7 g/dL (3.4-5.0); Albumin/Globulin Ratio 0.9 (0.8-1.8); Bilirubin, Total 0.8 mg/dL (0.1-1.0); Bun/Creatinine Ratio 6.9 (12.0-20.0); Calcium, Blood 8.9 mg/dL (8.5-10.1); Creatinine, Blood 0.73 mg/dL (0.40-1.00); Globulin, Blood 3.9 g/dL (2.2-4.0); Potassium, Blood 3.4 mmol/L (3.5-5.5); Total Protein, Blood 7.6 g/dL (6.4-8.2)
--- NOTE | 2023-09-30 05:26 | NUR ---
END OF SHIFT NOTE NO ACUTE EVENTS OVERNIGHT. PT CONTINUES TO HAVE NAUSEA/VOMITING W/ MODERATE IMPROVEMENT WITH ANTINAUSEA MEDICATIONS. PT HAS ATTEMPTED TO CONSUME ICE CHIPS AND WATER W/ VOMITING SHORTLY AFTER CONSUMPTION. PT DOES REPORT MORE SLEEP OVERNIGHT THAN OVER THE PAST FEW DAYS. VSS. HR 60-70'S, NO TELE. SBP 140-160'S, DENIES CHEST PAIN/PRESSURE. SPO2 >92% ON RA. AFEBRILE. PT WITH C/O SEVERE ABDOMINAL PAIN, MEDICATED WITH FENTANYL PER EMAR. PT REPORTEDLY TAKES DILAUDID AT HOME FOR CHRONIC PAIN. MEDIPORT ACCESSED, INFUSING LR AT 125ML/HR PER EMAR. UP TO BSC WITH SBA MULTIPLE TIMES OVERNIGHT. NO OTHER NEEDS AT THIS TIME. CALL LIGHT WITHIN REACH, BED IN LOWEST POSITION. WILL REPORT TO ONCOMING RN.
--- NOTE | 2023-09-30 08:04 | NUR ---
Am note Pt alert, oriented X4; calm and cooperative with care. Pt reports 10/10 abd pain, medicated per emar. Pt reporting severe nausea and hiccups, medicated per emar. Pt denies chest pain/pressure, sob, dizziness and numb/tingling. Spo2 >90% on ra, breathing even and unlabored. Abbd soft, tender, hypoactive X4; quad. Elevated bp noted. Other vss. Will continue to monitor.
--- NOTE | 2023-09-30 15:39 | NUR ---
Transfer note Pt transfered to 210 at approx 1300. Pt contined to report pain and nauses, medicated per emar. Pain management d/c, Dr Saldivar notified and new orders entered.
[2023-10-01 04:10] LABS: Hematocrit 32.7 % (33.0-51.0); Mean Corpuscular HGB 23.6 pg (26.0-34.0); Mean Corpuscular HGB Conc 30.6 g/dL (31.5-36.5); Mean Corpuscular Volume 77 fL (80-100); Platelet Count 268 K/mm3 (150-400); RDW Coefficient Variation 16.1 % (11.7-14.2); RDW Standard Deviation 44.7 fL (35.1-46.3); Red Blood Cell Count 4.23 M/mm3 (3.80-5.20); White Blood Cell Count 9.97 K/mm3 (4.00-11.30)
[2023-10-01 04:27] VITALS: BP 135/79
[2023-10-01 04:29] LABS: Bun/Creatinine Ratio 9.2 (12.0-20.0); Calcium, Blood 8.5 mg/dL (8.5-10.1); Creatinine, Blood 0.76 mg/dL (0.40-1.00); Potassium, Blood 3.3 mmol/L (3.5-5.5)
--- NOTE | 2023-10-01 05:59 | NUR ---
SHIFT SUMMARY PT IS HERE AT THE HOSPITAL WITH INTRACTABLE N/V STEMMING FROM A POSSIBLE GASTROPARESIS FLARE-UP (PT HAS A HX OF FLARE-UPS). PT HAS BEEN MEDICATED PER THE EMAR FOR BOTH NAUSEA AND PAIN THROUGHOUT THE SHIFT. PT HAS NOT HAD ANYTHING TO EAT THIS SHIFT. PT'S VITAL SIGNS ARE STABLE AND SHE IS INDEPENDENT IN THE ROOM. BED IS IN LOWEST POSITION, CALL LIGHT IS WITHIN REACH.
[2023-10-01 07:18] VITALS: BP 160/143
--- NOTE | 2023-10-01 14:14 | NUR ---
PT TOLERATED APROX 120ML PEDIALYTE AND 5% OF TOAST AND APPLESAUCE. PT DENIES N/V APROX 30 MIN FOLLOWING.
[2023-10-01 14:37] VITALS: BP 148/94
[2023-10-01 19:26] VITALS: BP 152/96
--- NOTE | 2023-10-01 19:36 | NUR ---
SHIFT SUMMARY PT DID SHOW IMPROVEMENT THIS SHIFT, SEE PREV NOTE REGARDING PO INTAKE. N/V CONTROLLED WITH IV REGLAN Q6 AND ZOFRAN ONCE. PAIN MANAGED PER EMAR. PLAN TO CONTINUE TO ADVANCE DIET SLOWLY.
[2023-10-02 02:12] VITALS: BP 142/77
--- NOTE | 2023-10-02 06:30 | NUR ---
SHIFT SUMMARY PT IS HERE WITH INTRACTABLE N/V AND PAIN. PT HAS BEEN MEDICATED PER EMAR DURING THE SHIFT, WITH PRN MEDS GIVEN SPARINGLY. PT STATES SHE IS FEELING BETTER THIS MORNING. NO ACUTE EVENTS OVERNIGHT. VITAL SIGNS HAVE BEEN STABLE. BED IS IN LOWEST POSITION, CALL LIGHT IS WITHIN REACH.
[2023-10-02 07:11] VITALS: BP 141/109
[2023-10-02 10:17] LABS: Bun/Creatinine Ratio 8.1 (12.0-20.0); Calcium, Blood 7.7 mg/dL (8.5-10.1); Creatinine, Blood 0.87 mg/dL (0.40-1.00); Potassium, Blood 2.8 mmol/L (3.5-5.5)
[2023-10-02 14:39] VITALS: BP 156/116
--- NOTE | 2023-10-03 06:47 | NUR ---
DISCHARGED AT 1925 ON 10/02/23 PT'S K 3.8 ON LAB CHECK. PT WAS EAGER TO GO HOME. NOTIFIED DR ROCHA AND DC ORDERS OBTAINED. REVIEWED DC ORDERS W/PT WHO VERBALIZED UNDERSTANDING. PT LEFT UNIT IN WC W/POSSESSIONS AND DC PAPERWORK IN HAND, ACCOMPANIED BY SO TO RIDE OUTSIDE.
== END 2023-10-02 19:15 | disposition home or self-care (01) | DRG 378 ==
LOC: ER 05:52 → PCU 05:57 → SURS 05:57 → PCU 05:57 → ER 08:15 → PCU 08:15 → SURS 09-30 13:06
PROVIDERS: Emergency Medicine; Family Medicine; Hospitalist; Internal Medicine Gastroenterology; ADMIT Internal Medicine
PROC: 0DJ08ZZ Inspection of Upper Intestinal Tract, Via Natural or Artificial Opening Endoscopic (ICD-10-PCS; principal; 2023-09-29 19:30)
DX: K92.0 Hematemesis (principal); D62 Acute posthemorrhagic anemia; R11.2 Nausea with vomiting, unspecified; F12.90 Cannabis use, unspecified, uncomplicated; J45.909 Unspecified asthma, uncomplicated; K58.9 Irritable bowel syndrome, unspecified; E87.6 Hypokalemia; K44.9 Diaphragmatic hernia without obstruction or gangrene; E83.39 Other disorders of phosphorus metabolism; K31.84 Gastroparesis; G43.909 Migraine, unspecified, not intractable, without status migrainosus; E86.0 Dehydration; Z88.2 Allergy status to sulfonamides; Z88.0 Allergy status to penicillin; Z88.5 Allergy status to narcotic agent; Z91.040 Latex allergy status; Z79.51 Long term (current) use of inhaled steroids; Z87.891 Personal history of nicotine dependence; Z88.8 Allergy status to other drugs, medicaments and biological substances; Z79.891 Long term (current) use of opiate analgesic
CPT/HCPCS: 36415; 80048; 80053; 83690; 83735; 84132; 85014; 85018; 85025; 85027; 85610; 85730; 86850; 86900; 86901; 94762; 96361; 96365; 96375; 96376; 99285-25; A9270; C9113; G0378; J0171; J0780; J1170; J1200; J1642; J1790; J2001; J2250; J2405; J2704; J2765; J3010; J3480; J7030; J7120

== ENCOUNTER 2023-12-17 00:45 | Day surgery (SDC) | payer OTHER ==
[~2023-12-17 00:45] MED LIST changes: +Amitriptyline H50 MG PO
[2023-12-17 10:20] VITALS: BP 123/89
== END 2023-12-17 10:22 | disposition home or self-care (01) ==
LOC: ATC 00:45
DX: K31.84 Gastroparesis (principal); G89.29 Other chronic pain; M54.6 Pain in thoracic spine; R10.84 Generalized abdominal pain; Z88.0 Allergy status to penicillin; Z88.2 Allergy status to sulfonamides
CPT/HCPCS: 96523; J1642

== ENCOUNTER 2024-03-16 00:51 | Inpatient (IN) | payer OTHER ==
[~2024-03-16] VITALS: Ht 170.2 cm; Wt 82.5 kg
[2024-03-18 15:03] VITALS: BP 148/97
== END 2024-03-18 15:58 | disposition home or self-care (01) | DRG 378 ==
LOC: ER 00:51 → MEDS 00:52
PROVIDERS: ADMIT Hospitalist
PROC: 0DJ08ZZ Inspection of Upper Intestinal Tract, Via Natural or Artificial Opening Endoscopic (ICD-10-PCS; principal; 2024-03-17)
DX: K92.0 Hematemesis (principal); D62 Acute posthemorrhagic anemia; K44.9 Diaphragmatic hernia without obstruction or gangrene; J45.909 Unspecified asthma, uncomplicated; K21.9 Gastro-esophageal reflux disease without esophagitis; Z98.890 Other specified postprocedural states; Z88.2 Allergy status to sulfonamides; Z88.0 Allergy status to penicillin; Z88.5 Allergy status to narcotic agent; Z88.8 Allergy status to other drugs, medicaments and biological substances; Z91.040 Latex allergy status; Z87.442 Personal history of urinary calculi; Z90.710 Acquired absence of both cervix and uterus; Z90.49 Acquired absence of other specified parts of digestive tract; Z90.89 Acquired absence of other organs; Z79.899 Other long term (current) drug therapy

== ENCOUNTER 2024-06-03 09:34 | Inpatient (IN) | payer OTHER ==
[~2024-06-03] VITALS: Ht 170.2 cm; Wt 82.7 kg
[~2024-06-03 09:34] MED LIST changes: +DULERA 100 MCG/13 GM INH; +FERSU300 PO; +IPRAT-ALBUT 0.5-3 ML INH; +SUCRALFATE1 GM/1015 PO
[2024-06-03] MEDS ORDERED: NS 1,000 ML IV SCH ×2 (10:15→13:55)
[2024-06-03] MEDS ORDERED: Ketorolac Tromethamine 15mg Vial IV ONE (10:15)
[2024-06-03] MEDS ORDERED: Metoclopramide HCl 5MG / ML 2ML Vial IV ONE (10:15)
[2024-06-03 10:51] LABS: BASOPHILS ABSOLUTE AUTO 0.03 K/mm3 (0.00-0.23); BASOPHILS PERCENT AUTO 0 % (0-2); EOSINOPHILS ABSOLUTE AUTO 0.02 K/mm3 (0.00-0.68); EOSINOPHILS PERCENT AUTO 0 % (0-6); Hematocrit 39.6 % (33.0-51.0); Hemoglobin 12.5 g/dL (11.5-16.0); IMMATURE GRAN ABSOLUTE AUTO 0.04 K/mm3 (0.00-0.10); IMMATURE GRAN PERCENT AUTO 0 % (0-1); LYMPHOCYTES ABSOLUTE AUTO 0.78 K/mm3 (0.84-5.20); LYMPHOCYTES PERCENT AUTO 6 % (21-46); MONOCYTES PERCENT AUTO 3 % (4-13); Mean Corpuscular HGB 25.8 pg (26.0-34.0); Mean Corpuscular HGB Conc 31.6 g/dL (31.5-36.5); Mean Corpuscular Volume 82 fL (80-100); Mean Platelet Volume 10.5 fL (9.1-12.4); NEUTROPHILS PERCENT AUTO 91 % (41-73); Platelet Count 234 K/mm3 (150-400); RDW Coefficient Variation 21.2 % (11.7-14.2); RDW Standard Deviation 62.3 fL (35.1-46.3); Red Blood Cell Count 4.85 M/mm3 (3.80-5.20); White Blood Cell Count 13.57 K/mm3 (4.00-11.30)
[2024-06-03 11:01] LABS: Albumin, Blood 3.9 g/dL (3.4-5.0); Albumin/Globulin Ratio 1.1 (0.8-1.8); Bilirubin, Total 0.6 mg/dL (0.1-1.0); Bun/Creatinine Ratio 8.7 (12.0-20.0); Calcium, Blood 8.8 mg/dL (8.5-10.1); Creatinine, Blood 0.69 mg/dL (0.40-1.00); Globulin, Blood 3.7 g/dL (2.2-4.0); Potassium, Blood 3.8 mmol/L (3.5-5.5); Total Protein, Blood 7.6 g/dL (6.4-8.2)
[2024-06-03] MEDS ORDERED: DiphenhydrAMINE HCl 50 MG/ML 1ML Vial IV ONE (11:20)
[2024-06-03] MEDS ORDERED: Droperidol 5 mg/2 ml Vial IV ONE (11:20)
[2024-06-03] MEDS ORDERED: HYDROmorphone HCl/Pf 1MG SYR IV ONE (12:35)
[2024-06-03] MEDS ORDERED: Pantoprazole Sodium 40 MG Injection IV ONE (12:35)
[2024-06-03] MEDS ORDERED: Promethazine HCl 12.5 MG Supp PR PRN (13:55)
[2024-06-03] MEDS ORDERED: Metoclopramide HCl 5MG / ML 2ML Vial IV PRN (13:55)
[2024-06-03] MEDS ORDERED: HYDROmorphone HCl/Pf 1MG SYR IV PRN (13:55)
[2024-06-03 15:40] VITALS: BP 184/102
[2024-06-03 16:12] LABS: Hematocrit 39.3 % (33.0-51.0); Hemoglobin 12.3 g/dL (11.5-16.0); Mean Corpuscular HGB 25.8 pg (26.0-34.0); Mean Corpuscular HGB Conc 31.3 g/dL (31.5-36.5); Mean Corpuscular Volume 83 fL (80-100); Mean Platelet Volume 10.1 fL (9.1-12.4); Platelet Count 217 K/mm3 (150-400); RDW Standard Deviation 62.4 fL (35.1-46.3); Red Blood Cell Count 4.76 M/mm3 (3.80-5.20); White Blood Cell Count 13.91 K/mm3 (4.00-11.30)
[2024-06-03] MEDS ORDERED: Pantoprazole Sodium 40 MG Injection IV SCH (16:30)
--- NOTE | 2024-06-03 17:40 | NUR ---
ADMIT SUMMARY PATIENT ARRIVED TO FLOOR FROM ED. VOMITING GREEN LIQUID. C/O PAIN TO BACK AND JOINTS. A/O X4. MEDIPORT TO RIGHT CHEST ACCESSED AND RUNNING NS. SKIN INTACT ON ADMISSION. ABLE TO MAKE NEEDS KNOWN. CALL LIGHT IN REACH. ORIENTED TO ROOM.
[2024-06-03] MEDS ORDERED: ClonazePAM 1 MG Tab PO PRN (18:20)
[2024-06-03] MEDS ORDERED: Ipratropium/Albuterol SulF 2.5-0.5MG/3 ML Amp INH PRN (18:30)
[2024-06-03] MEDS ORDERED: Mometasone/Formoterol MDI 200/5 mcg 13 GM INH SCH (18:30)
[2024-06-03] MEDS ORDERED: Albuterol HFA200 ACT/6.7 GM INH INH PRN (18:30)
[2024-06-03 19:19] VITALS: BP 161/106
[2024-06-03] MEDS ORDERED: Ondansetron HCl 2 MG / ML 2ML Vial IV PRN (22:00)
[2024-06-04 02:32] VITALS: BP 155/99
[2024-06-04] MEDS ORDERED: HydrALAZINE HCl 20 MG / ML 1ML Vial IV PRN (02:45)
--- NOTE | 2024-06-04 03:06 | NUR ---
SHIFT SUMMARY NOC PT A/O X 4. PLEASANT AND COOPERATIVE WITH CARE. ELEVATED BP SINCE IN ED. PT HAS BEEN MEDICATED T/O ENTIRE SHIFT WITH ANTIEMETIC RX DUE TO CONTINOUS EMESIS. EMESIS HAS BEEN CLEAR AND BARLOW WITH NO COFFEE GROUND TEXTURE OR RED OR DARK COLOR TO IT. PT ALSO HAS HAD PAIN DUE TO THE EMESIS AND BEEN MEDICATED PER EMAR. PT REMAINS NPO AND HAS CONTINOUS INFUSION OF NS @ 75 ML/HR. PT IS CURRENTLY RESTING WITH BED IN LOWEST POSITION, AND CALL LIGHT WITHIN REACH.
[2024-06-04 04:40] LABS: Hemoglobin 11.2 g/dL (11.5-16.0); Mean Corpuscular HGB 25.7 pg (26.0-34.0); Mean Corpuscular HGB Conc 31.1 g/dL (31.5-36.5); Mean Corpuscular Volume 83 fL (80-100); Mean Platelet Volume 10.4 fL (9.1-12.4); Platelet Count 197 K/mm3 (150-400); RDW Coefficient Variation 21.2 % (11.7-14.2); RDW Standard Deviation 63.4 fL (35.1-46.3); Red Blood Cell Count 4.35 M/mm3 (3.80-5.20); White Blood Cell Count 11.86 K/mm3 (4.00-11.30)
[2024-06-04 04:56] LABS: Albumin, Blood 3.3 g/dL (3.4-5.0); Anion Gap 11 mmol/L (3-11); Blood Urea Nitrogen 4 mg/dL (8-24); Bun/Creatinine Ratio 5.4 (12.0-20.0); CO2, Blood 24 mmol/L (21-32); Chloride, Blood 110 mmol/L (98-108); Creatinine, Blood 0.75 mg/dL (0.40-1.00); Glomerular Filtration Rate 99 (60-); Glucose, Blood 113 mg/dL (70-99); Magnesium, Blood 1.8 mg/dL (1.6-2.4); Phosphorus, Blood 1.9 mg/dL (2.5-4.9); Potassium, Blood 3.6 mmol/L (3.5-5.5); Sodium, Blood 141 mmol/L (136-145)
[2024-06-04 07:14] VITALS: BP 157/91
[2024-06-04] MEDS ORDERED: Amitriptyline HCl 10 MG Tab PO SCH (09:00)
[2024-06-04] MEDS ORDERED: Montelukast Sodium 10 MG Tab PO SCH (09:00)
[2024-06-04] MEDS ORDERED: Potassium Phosphate Dibasic 30 MM in Dextrose 5% 500 ML IV STA (09:09)
[2024-06-04] MEDS ORDERED: Promethazine HCl 25 MG Supp PR PRN (13:35)
[2024-06-04] MEDS ORDERED: HYDROmorphone HCl/Pf 1MG SYR IV PRN (13:35)
[2024-06-04 15:03] VITALS: BP 147/92
[2024-06-04] MEDS ORDERED: Sucralfate 1000MG / 10ML UD BTL PO SCH (16:30)
--- NOTE | 2024-06-04 17:56 | NUR ---
SHIFT SUMMARY PT AXO, PLEASANT AND COOPERATIVE WITH CARE. VSS THOUGH PT MEDICATED FOR PAIN AND N/V FREQUENTLY ALLOWED BY EMAR. PT CONTINUES TO HAVE EPISODES OF PAIN 10/ AND EMESIS, BROWN IN COLOR. UP AD HERVE IN ROOM. MEDIPORT INFUSING PER EMAR AT 75ML/HR. BED IN LOW POSITION, CALL LIGHT WITHIN REACH.
[2024-06-04 19:46] VITALS: BP 146/88
[2024-06-04] MEDS ORDERED: OLANZapine 5 MG Tab PO SCH (21:00)
[2024-06-04] MEDS ORDERED: Amitriptyline HCl 50 MG Tab PO SCH (21:00)
[2024-06-05] MEDS ORDERED: FentaNYL Citrate 50 MCG/ML 2 ML Injection IV PRN (00:55)
[2024-06-05] MEDS ORDERED: LORazepam 2 MG/ML 1ML Injection IV PRN (01:00)
[2024-06-05 04:53] VITALS: BP 169/105
[2024-06-05 06:01] LABS: Albumin, Blood 3.4 g/dL (3.4-5.0); Anion Gap 10 mmol/L (3-11); Blood Urea Nitrogen 3 mg/dL (8-24); Bun/Creatinine Ratio 3.8 (12.0-20.0); CO2, Blood 24 mmol/L (21-32); Chloride, Blood 108 mmol/L (98-108); Creatinine, Blood 0.79 mg/dL (0.40-1.00); Glomerular Filtration Rate 93 (60-); Glucose, Blood 106 mg/dL (70-99); Phosphorus, Blood 2.3 mg/dL (2.5-4.9); Potassium, Blood 3.4 mmol/L (3.5-5.5); Sodium, Blood 139 mmol/L (136-145)
--- NOTE | 2024-06-05 06:09 | NUR ---
SHIFT SUMMARY PT A&OX4 AND ANSWERS QUESITONS APPROPRIATELY. PT STILL SUFFERING FROM IRRETRACTABALE PAIN/NAUSEA/VOMITING. PT MEDICATED PER EMAR, PT UNABLE TO TAKE PO MEDICATIONS DUE TO NAUSEA, RECEIVED IV MEDICATIONS PRN. PT SPENT MOST OF SHIFT IN BED BUT DID NOT SLEEP MUCH. NO ACUTE EVENTS AT THIS TIME. VSS, NO COMPLAINTS OF CP/PRESSURE OR SOB. PT LEFT IN A POSITION OF SAFETY WITH FALL PRECAUTIONS IN PLACE AND CALL LIGHT IN REACH.
[2024-06-05 07:33] VITALS: BP 145/97
[2024-06-05] MEDS ORDERED: Potassium Phosphate Dibasic 30 MM in Dextrose 5% 500 ML IV STA (08:21)
--- NOTE | 2024-06-05 09:00 | NUR ---
pt laying in bed with eyes closed, when she woke she was nauseated, and painful, meds given, a/ox4, pleasant and cooperative with care, on r/a, hrr, up indep to bathroom, voids with out diff, skin c/w/d, maarvind, piedad, call light in reach.
[2024-06-05 14:49] VITALS: BP 136/96
--- NOTE | 2024-06-05 18:01 | NUR ---
pt has been nauseated most of the day, no acute changes, keeping her medicated, call light in reach.
[2024-06-05 20:56] VITALS: BP 158/94
[2024-06-06 02:08] VITALS: BP 188/101
--- NOTE | 2024-06-06 04:08 | NUR ---
SHIFT SUMMARY ADMITTED FOR COFFEE GROUND EMESIS. FULL CODE. NAUSEA AND PAIN MEDS GIVEN THIS SHIFT. NS INFUSING ORDERED. CLEAR LIQUID DIET. A&O X4. INDEPENDENT IN ROOM. MEDIPORT IS ACCESSED FOR THE IV FLUIDS. NO SURGICAL INTERVENTION IS PLANNED. ON RA.
[2024-06-06 07:11] VITALS: BP 152/96
[2024-06-06 08:36] LABS: Albumin, Blood 3.3 g/dL (3.4-5.0); Anion Gap 8 mmol/L (3-11); Blood Urea Nitrogen 2 mg/dL (8-24); Bun/Creatinine Ratio 2.3 (12.0-20.0); CO2, Blood 28 mmol/L (21-32); Calcium, Blood 7.9 mg/dL (8.5-10.1); Chloride, Blood 108 mmol/L (98-108); Creatinine, Blood 0.89 mg/dL (0.40-1.00); Glomerular Filtration Rate 80 (60-); Glucose, Blood 87 mg/dL (70-99); Magnesium, Blood 1.9 mg/dL (1.6-2.4); Phosphorus, Blood 2.6 mg/dL (2.5-4.9); Potassium, Blood 3.5 mmol/L (3.5-5.5); Sodium, Blood 140 mmol/L (136-145)
[2024-06-06] MEDS ORDERED: TPN Consult Notification XX ONE (11:25)
[2024-06-06 15:06] VITALS: BP 129/70
[2024-06-06] MEDS ORDERED: Parenteral Electolytes 40 ML,Potassium Phosphate Dibasic 30 MM,Multivitamins 10 ML,ZINC... IV SCH (17:00)
--- NOTE | 2024-06-06 17:55 | NUR ---
REPORT RECEIVED VERIFIED. PT HAD UNEVENTFUL DAY TODAY, REFUSED FOOD/EATING DUE TO PAIN AND NAUSEA. PT REPEATEDLY MEDICATED. TODAY PT WAS STARTED ON TPN GOING INTO CENTRAL LINE, SO FAR NO ISSUES AND PT ABLE TO MAKE NEEDS KNOWN.
[2024-06-06 21:12] VITALS: BP 166/95
[2024-06-07 02:54] VITALS: BP 138/86
[2024-06-07 06:00] LABS: Anion Gap 9 mmol/L (3-11); Blood Urea Nitrogen 7 mg/dL (8-24); Bun/Creatinine Ratio 8.9 (12.0-20.0); CO2, Blood 29 mmol/L (21-32); Calcium, Blood 7.9 mg/dL (8.5-10.1); Chloride, Blood 106 mmol/L (98-108); Creatinine, Blood 0.79 mg/dL (0.40-1.00); Glomerular Filtration Rate 93 (60-); Glucose, Blood 99 mg/dL (70-99); Magnesium, Blood 1.9 mg/dL (1.6-2.4); Phosphorus, Blood 2.7 mg/dL (2.5-4.9); Potassium, Blood 3.5 mmol/L (3.5-5.5); Sodium, Blood 140 mmol/L (136-145); Triglycerides 58 mg/dL (30-160)
--- NOTE | 2024-06-07 06:22 | NUR ---
Shift Summary Pt on TPN @ 75. Continued severe pain and N/V with emesis t/o shift. Medicated per emar for pain and nausea. Pt refused nighttime pills due to nausea. Pt is AOx4, independent in the room. No acute changes.
[2024-06-07 07:57] VITALS: BP 176/84
[2024-06-07 15:33] VITALS: BP 152/111
--- NOTE | 2024-06-07 18:10 | NUR ---
SHIFT SUMMARY PT HAD SEVERAL EPISODES OF EMESIS THAT WAS MEDICATED PER EMAR THIS SHIFT. PT REPORTS THAT SUPPOSITORY WAS EFFECTIVE AND WAS ABLE TO TOLERATE JELLO AND SIPS OF WATER. CPN CONT TO INFUSE PER EMAR. PT HYPERTENSIVE THIS AM, BUT ASYMPTOMATIC. PT MEDICATED PER EMAR. NO OTHER ACUTE CHANGES. CALL LIGHT WITHIN REACH AND PT ABLE TO MAKE NEEDS KNOWN.
[2024-06-07 21:01] VITALS: BP 135/76
[2024-06-08 02:51] VITALS: BP 157/123
--- NOTE | 2024-06-08 04:38 | NUR ---
GENERAL CONTRACTOR SUMMARY BP ELEVATED, OTHERWISE VSS. INTERMITTENT PAIN AND NAUSEA. NO NOTED EMESIS. HAS RECEIVED BOTH PAIN MEDS AND ANTIEMETIC MEDS - SEE MAR FOR DETAILS. IV NUTRITION - CPN AT 75 ML/HR. UP AD HERVE, ABLE TO REPOSITION SELF IN BED WITHOUT ASSIST. HAS BEEN RESTING QUIETLY WITH OCCASIONAL INTERRUPTIONS FOR C/O PAIN AND NAUSEA - SEE ABOVE. CALL LIGHT IN REACH, RAILS UP X 2 AND BED IN LOW POSITION FOR SAFETY. WILL CONTINUE TO MONITOR.
[2024-06-08] MEDS ORDERED: HydrALAZINE HCl 20 MG / ML 1ML Vial IV PRN (06:15)
[2024-06-08 07:10] VITALS: BP 139/80
[2024-06-08 09:04] LABS: Bun/Creatinine Ratio 17.7 (12.0-20.0); Calcium, Blood 8.9 mg/dL (8.5-10.1); Creatinine, Blood 0.79 mg/dL (0.40-1.00); Magnesium, Blood 2.2 mg/dL (1.6-2.4); Phosphorus, Blood 2.8 mg/dL (2.5-4.9); Potassium, Blood 3.7 mmol/L (3.5-5.5)
[2024-06-08] MEDS ORDERED: TPN Consult Notification XX ONE (11:50)
[2024-06-08] MEDS ORDERED: PROM12.5S PR (12:12)
--- NOTE | 2024-06-08 16:32 | NUR ---
DISCHARGE NOTE PT DISCHARGED HOME AT 1545. PT PROVIDED W/ VERBAL AND WRITTEN INSTRUCTIONS AND REPORTED UNDERSTANDING. PT A&OX4, VSS, AMB IND, TOLERATING PO, VOIDING, AND PAIN MANAGED. BELONGINGS WERE RETURNED AND PT ESCOURTED OUT VIA W/C AT 1616 BY SHAREE LINDSAY.
[2024-06-08] MEDS ORDERED: Parenteral Electolytes 40 ML,Potassium Phosphate Dibasic 30 MM,Multivitamins 10 ML,ZINC... IV SCH (17:00)
== END 2024-06-08 16:16 | disposition home health service (06) | DRG 392 ==
LOC: ER 09:34 → MEDS 14:46
PROVIDERS: Emergency Medicine; Internal Medicine; ADMIT Internal Medicine
DX: K31.84 Gastroparesis (principal); E87.20 Acidosis, unspecified; E83.39 Other disorders of phosphorus metabolism; E87.6 Hypokalemia; G89.4 Chronic pain syndrome; F41.9 Anxiety disorder, unspecified; K21.9 Gastro-esophageal reflux disease without esophagitis; K44.9 Diaphragmatic hernia without obstruction or gangrene; M54.9 Dorsalgia, unspecified; Z87.442 Personal history of urinary calculi; Z90.710 Acquired absence of both cervix and uterus; Z90.49 Acquired absence of other specified parts of digestive tract; Z98.890 Other specified postprocedural states; Z87.19 Personal history of other diseases of the digestive system; J45.909 Unspecified asthma, uncomplicated; Z88.0 Allergy status to penicillin; Z88.2 Allergy status to sulfonamides; Z88.5 Allergy status to narcotic agent; Z88.8 Allergy status to other drugs, medicaments and biological substances; Z91.040 Latex allergy status; Z79.899 Other long term (current) drug therapy; F11.90 Opioid use, unspecified, uncomplicated; D72.829 Elevated white blood cell count, unspecified; Z87.11 Personal history of peptic ulcer disease
CPT/HCPCS: 36415; 80048; 80053; 80069; 83036; 83690; 83735; 84100; 84478; 85025; 85027; 94640; 94664; 94760; 96361; 96374; 96375; 99285-25; A9270; C9113; J0360; J1170; J1200; J1642; J1790; J1885; J2405; J2765; J3010; J3411; J7030; J7060

== ENCOUNTER 2024-08-10 08:01 | Inpatient (IN) | payer OTHER ==
[~2024-08-10] VITALS: Ht 170.2 cm; Wt 83.0 kg
[2024-08-10] MEDS ORDERED: Droperidol 5 mg/2 ml Vial IV ONE (08:20)
[2024-08-10] MEDS ORDERED: DiphenhydrAMINE HCl 50 MG/ML 1ML Vial IV ONE (08:20)
[2024-08-10] MEDS ORDERED: NS 1,000 ML IV SCH ×2 (08:20→13:10)
[2024-08-10 08:32] LABS: BASOPHILS ABSOLUTE AUTO 0.03 K/mm3 (0.00-0.23); BASOPHILS PERCENT AUTO 0 % (0-2); EOSINOPHILS ABSOLUTE AUTO 0.09 K/mm3 (0.00-0.68); EOSINOPHILS PERCENT AUTO 1 % (0-6); Hematocrit 37.7 % (33.0-51.0); IMMATURE GRAN ABSOLUTE AUTO 0.05 K/mm3 (0.00-0.10); IMMATURE GRAN PERCENT AUTO 0 % (0-1); LYMPHOCYTES ABSOLUTE AUTO 1.03 K/mm3 (0.84-5.20); LYMPHOCYTES PERCENT AUTO 7 % (21-46); MONOCYTES PERCENT AUTO 4 % (4-13); Mean Corpuscular HGB Conc 31.8 g/dL (31.5-36.5); Mean Corpuscular Volume 88 fL (80-100); NEUTROPHILS ABSOLUTE AUTO 12.51 K/mm3 (1.96-9.15); NEUTROPHILS PERCENT AUTO 88 % (41-73); Platelet Count 243 K/mm3 (150-400); RDW Coefficient Variation 16.4 % (11.7-14.2); RDW Standard Deviation 52.6 fL (35.1-46.3); Red Blood Cell Count 4.28 M/mm3 (3.80-5.20); White Blood Cell Count 14.21 K/mm3 (4.00-11.30)
[2024-08-10] MEDS ORDERED: LANSOPRAZOLE30 MG PO (08:44)
[2024-08-10] MEDS ORDERED: SUCR1 PO (08:46)
[2024-08-10] MEDS ORDERED: ONDA4ODT SL (08:46)
[2024-08-10 09:09] LABS: Albumin, Blood 3.6 g/dL (3.4-5.0); Bilirubin, Total 0.7 mg/dL (0.1-1.0); Bun/Creatinine Ratio 11.3 (12.0-20.0); Creatinine, Blood 0.71 mg/dL (0.40-1.00); Globulin, Blood 3.6 g/dL (2.2-4.0); Magnesium, Blood 1.5 mg/dL (1.6-2.4); Potassium, Blood 4.5 mmol/L (3.5-5.5); Total Protein, Blood 7.2 g/dL (6.4-8.2)
[2024-08-10] MEDS ORDERED: HYDROmorphone HCl/Pf 1MG SYR IV ONE ×2 (09:15→10:55)
[2024-08-10] MEDS ORDERED: Magnesium Sulf 2 GM/Water 50ML 50 ML IV ONE (09:40)
[2024-08-10] MEDS ORDERED: CELEXA10 MG PO (13:07)
[2024-08-10] MEDS ORDERED: Metoclopramide HCl 5MG / ML 2ML Vial IV PRN ×2 (13:10→20:15)
[2024-08-10] MEDS ORDERED: FLU VACC TS2024-25(6MOS UP)/PF 45 MCG/0.5 ML SYRINGE IM SCH (13:15)
[2024-08-10] MEDS ORDERED: HYDROmorphone HCl/Pf 1MG SYR IV PRN (13:15)
[2024-08-10] MEDS ORDERED: ClonazePAM 1 MG Tab PO PRN (13:25)
[2024-08-10] MEDS ORDERED: Sucralfate 1 GM Tab PO PRN (13:25)
[2024-08-10] MEDS ORDERED: Mometasone/Formoterol MDI 100/5 mcg 13 GM INH SCH (13:40)
[2024-08-10] MEDS ORDERED: Albuterol HFA200 ACT/6.7 GM INH INH PRN (13:40)
[2024-08-10] MEDS ORDERED: Pantoprazole Sodium 40 MG Injection IV SCH (14:00)
[2024-08-10 15:12] LABS: Hemoglobin 11.9 g/dL (11.5-16.0); Mean Corpuscular HGB 28.1 pg (26.0-34.0); Mean Corpuscular HGB Conc 32.2 g/dL (31.5-36.5); Mean Corpuscular Volume 88 fL (80-100); Mean Platelet Volume 10.1 fL (9.1-12.4); Platelet Count 226 K/mm3 (150-400); RDW Coefficient Variation 16.8 % (11.7-14.2); Red Blood Cell Count 4.23 M/mm3 (3.80-5.20); White Blood Cell Count 13.46 K/mm3 (4.00-11.30)
[2024-08-10 15:40] VITALS: BP 145/94
--- NOTE | 2024-08-10 15:42 | NUR ---
PATIENT ARRIVED TO UNIT AT 1535 VIA GURNEY. SELF-TRANSFERRED TO FLOOR BED. VITAL SIGNS OBTAINED. LAST EMESIS EPISODE PRIOR TO LEAVING ED. ANGEL 08/09/24 @ 2300.
--- NOTE | 2024-08-10 16:05 | NUR ---
PATIENT HAS NO OTHER MEDS FOR NAUSEA/VOMITING. GIVEN PRN KLONOPIN TO HELP WITH NAUSEA.
[2024-08-10] MEDS ORDERED: Ondansetron HCl 2 MG / ML 2ML Vial IV PRN ×2 (17:20→20:15)
[2024-08-10 19:16] VITALS: BP 149/99
--- NOTE | 2024-08-10 19:24 | NUR ---
DAY SHIFT SUMMARY: PATIENT ARRIVED TO FLOOR FROM ED AT 1535. REQUESTED POWER PORT TO BE ACCESSED DUE TO "LITTLE VEINS" AND DIFFICULTY MAINTAINING PIV WHEN SHE'S HOSPITALIZED. ORDER OBTAINED AND POWER PORT ACCESSED; CURRENTLY RUNNING NS @ 100mL/hr. MEDICATED x1 HYDROMORPHONE C/O ABD PAIN SECONDARY TO HIATAL HERNIA IRRITATION WITH NAUSEA AND VOMITING. TELEPHONE ORDER RECEIVED BY DR BOWER FOR PRN ONDANSETRON VIA IV FOR NAUSEA AND VOMITING. SBA TO BATHROOM DUE TO LINE MANAGEMENT. CONTINENT x2. MEDS WHOLE WITH FLUIDS. CLEAR LIQUID DIET; REFUSED DINNER AND CURRENTLY SLEEPING. BED IN LOWEST POSITION. CALL LIGHT WITHIN REACH. ALL NEEDS MET. REPORT TO ONCOMING NURSE.
[2024-08-10] MEDS ORDERED: Albuterol 2.5 MG/3 ML VIAL INH PRN (20:00)
[2024-08-10] MEDS ORDERED: Amitriptyline HCl 50 MG Tab PO SCH (21:00)
[2024-08-11] MEDS ORDERED: NS 1,000 ML IV SCH (01:25)
[2024-08-11 03:31] VITALS: BP 154/102
[2024-08-11 06:41] LABS: Hematocrit 34.1 % (33.0-51.0); Hemoglobin 10.7 g/dL (11.5-16.0); Mean Corpuscular HGB 27.9 pg (26.0-34.0); Mean Corpuscular HGB Conc 31.4 g/dL (31.5-36.5); Mean Corpuscular Volume 89 fL (80-100); Mean Platelet Volume 10.1 fL (9.1-12.4); Platelet Count 198 K/mm3 (150-400); Red Blood Cell Count 3.84 M/mm3 (3.80-5.20); White Blood Cell Count 9.65 K/mm3 (4.00-11.30)
[2024-08-11 07:15] LABS: Albumin, Blood 3.1 g/dL (3.4-5.0); Anion Gap 11 mmol/L (3-11); Blood Urea Nitrogen 5 mg/dL (8-24); Bun/Creatinine Ratio 6.3 (12.0-20.0); CO2, Blood 23 mmol/L (21-32); Calcium, Blood 7.8 mg/dL (8.5-10.1); Chloride, Blood 112 mmol/L (98-108); Creatinine, Blood 0.79 mg/dL (0.40-1.00); Glomerular Filtration Rate 93 (60-); Glucose, Blood 88 mg/dL (70-99); Magnesium, Blood 1.9 mg/dL (1.6-2.4); Phosphorus, Blood 1.9 mg/dL (2.5-4.9); Potassium, Blood 3.6 mmol/L (3.5-5.5); Sodium, Blood 142 mmol/L (136-145)
[2024-08-11 07:50] VITALS: BP 150/98
[2024-08-11] MEDS ORDERED: Montelukast Sodium 10 MG Tab PO SCH (09:00)
[2024-08-11] MEDS ORDERED: Amitriptyline HCl 10 MG Tab PO SCH (09:00)
--- NOTE | 2024-08-11 15:40 | NUR ---
DISCHARGE NOTE MS DANIELLE SAID THAT SHE GENERALLY FEELS BETTER TODAY. LESS NAUSEA AND PAIN IS BETTER CONTROLLED. NO STOOL, ZERO TO MINIMAL EMESIS. SHE SAID THAT SHE FEELS ABLE TO CONTROL HER SYMPTOMS AT HOME. DISCHARGED HOME AT 1540HRS VIA W/C. WAITING OUTSIDE PER PT. STEADY GAIT UP TO THE BATHROOM. TOLERATED REGULAR DIET FOR LUNCH.
== END 2024-08-11 17:44 | disposition home or self-care (01) | DRG 392 ==
LOC: ER 08:01 → ERHOLD 08:02 → MEDS 15:24
PROVIDERS: Physician Assistant; ADMIT Internal Medicine
DX: K31.84 Gastroparesis (principal); J45.909 Unspecified asthma, uncomplicated; K58.9 Irritable bowel syndrome, unspecified; Z88.2 Allergy status to sulfonamides; Z88.8 Allergy status to other drugs, medicaments and biological substances; Z88.0 Allergy status to penicillin; Z91.040 Latex allergy status; Z79.891 Long term (current) use of opiate analgesic; Z79.51 Long term (current) use of inhaled steroids; Z87.891 Personal history of nicotine dependence
CPT/HCPCS: 74177; 80053; 80069; 83690; 83735; 85025; 85027; 94640; 94664; 94760; 96361; 96365-59; 96366; 96375; 96376; 99285-25; A9270; G0378; J1170; J1200; J1642; J1790; J2405; J2470; J2765; J3475; J7030; Q9967

== ENCOUNTER 2024-10-14 14:00 | Inpatient (IN) | payer OTHER ==
[~2024-10-14] VITALS: Ht 170.2 cm; Wt 81.7 kg
[~2024-10-14 14:00] MED LIST changes: +CELEXA10 MG PO; +LANSOPRAZOLE30 MG PO; +ONDA4ODT SL
[2024-10-14] MEDS ORDERED: Metoclopramide HCl 5MG / ML 2ML Vial IV ONE (14:40)
[2024-10-14] MEDS ORDERED: NS 1,000 ML IV SCH (14:40)
[2024-10-14 14:51] LABS: Calcium, Ionized (POC) 1.04 mmol/L (1.10-1.46); Chloride (POC) 108 mmol/L (98-108); Creatinine (POC) 0.8 mg/dL (0.6-1.0); Glucose (ISTAT POC) 180 mg/dL (70-99); Hemoglobin (POC) 13.9 g/dL (12.0-16.0); Sodium (POC) 139 mmol/L (135-148); Total CO2 (POC) 21 mmol/L (21-32)
[2024-10-14] MEDS ORDERED: Pantoprazole Sodium 40 MG Injection IV ONE (14:55)
[2024-10-14] MEDS ORDERED: HYDROmorphone HCl/Pf 1MG SYR IV ONE ×2 (14:55→18:05)
[2024-10-14 15:05] LABS: BASOPHILS ABSOLUTE AUTO 0.04 K/mm3 (0.00-0.23); BASOPHILS PERCENT AUTO 0 % (0-2); EOSINOPHILS ABSOLUTE AUTO 0.17 K/mm3 (0.00-0.68); EOSINOPHILS PERCENT AUTO 1 % (0-6); Hematocrit 39.3 % (33.0-51.0); Hemoglobin 12.4 g/dL (11.5-16.0); IMMATURE GRAN ABSOLUTE AUTO 0.04 K/mm3 (0.00-0.10); IMMATURE GRAN PERCENT AUTO 0 % (0-1); LYMPHOCYTES ABSOLUTE AUTO 1.04 K/mm3 (0.84-5.20); LYMPHOCYTES PERCENT AUTO 8 % (21-46); MONOCYTES ABSOLUTE AUTO 0.35 K/mm3 (0.16-1.47); MONOCYTES PERCENT AUTO 3 % (4-13); Mean Corpuscular HGB 27.9 pg (26.0-34.0); Mean Corpuscular HGB Conc 31.6 g/dL (31.5-36.5); Mean Corpuscular Volume 88 fL (80-100); Mean Platelet Volume 10.4 fL (9.1-12.4); NEUTROPHILS PERCENT AUTO 87 % (41-73); Platelet Count 258 K/mm3 (150-400); RDW Coefficient Variation 14.1 % (11.7-14.2); RDW Standard Deviation 45.1 fL (35.1-46.3); Red Blood Cell Count 4.45 M/mm3 (3.80-5.20); White Blood Cell Count 12.64 K/mm3 (4.00-11.30)
[2024-10-14 15:24] LABS: Albumin, Blood 4.2 g/dL (3.4-5.0); Albumin/Globulin Ratio 1.1 (0.8-1.8); Bilirubin, Total 0.6 mg/dL (0.1-1.0); Bun/Creatinine Ratio 13.7 (12.0-20.0); Calcium, Blood 9.4 mg/dL (8.5-10.1); Creatinine, Blood 0.73 mg/dL (0.40-1.00); Globulin, Blood 3.9 g/dL (2.2-4.0); Potassium, Blood 3.9 mmol/L (3.5-5.5); Total Protein, Blood 8.1 g/dL (6.4-8.2)
[2024-10-14 15:34] LABS: Prothrombin Time Results 10.7 Sec (9.7-11.5)
[2024-10-14 15:34] LABS: Magnesium, Blood 1.9 mg/dL (1.6-2.4)
[2024-10-14] MEDS ORDERED: Droperidol 5 mg/2 ml Vial IV ONE ×3 (15:40→18:05)
[2024-10-14] MEDS ORDERED: Potassium Phosphate Dibasic 15 MM in Dextrose 5% 250 ML IV ONE (16:15)
[2024-10-14] MEDS ORDERED: Metoclopramide HCl 5MG / ML 2ML Vial IV PRN (18:20)
[2024-10-14] MEDS ORDERED: Ondansetron HCl 2 MG / ML 2ML Vial IV PRN (18:20)
[2024-10-14] MEDS ORDERED: FLU VACC TS2024-25(6MOS UP)/PF 45 MCG/0.5 ML SYRINGE IM ONE (18:25)
[2024-10-14] MEDS ORDERED: Acetaminophen 325 MG TABLET PO PRN (18:45)
[2024-10-14] MEDS ORDERED: Naloxone HCl 0.4MG / ML 1ML Vial IV PRN (18:45)
[2024-10-14] MEDS ORDERED: HYDROmorphone HCl/Pf 1MG SYR IV PRN (18:45)
[2024-10-14] MEDS ORDERED: Promethazine HCl 25 MG Supp PR PRN (19:10)
[2024-10-14] MEDS ORDERED: Sucralfate 1 GM Tab PO PRN (19:10)
[2024-10-14] MEDS ORDERED: ClonazePAM 1 MG Tab PO PRN (19:15)
[2024-10-14] MEDS ORDERED: Albuterol HFA200 ACT/6.7 GM INH INH PRN (19:35)
[2024-10-14] MEDS ORDERED: Mometasone/Formoterol MDI 100/5 mcg 13 GM INH SCH (19:35)
[2024-10-14 20:33] VITALS: BP 156/104
[2024-10-14] MEDS ORDERED: Amitriptyline HCl 50 MG Tab PO SCH (21:00)
--- NOTE | 2024-10-14 21:57 | NUR ---
PT ARRIVED TO THE MEDICAL FLOOR RM#[id number] @2024 VIA GURNEY AND BROUGHT HER PERSONAL BELONINGS WITH HER IN A WHITE PLASTIC BAG. PT WEARING HER OWN PJ BOTTOMS. PT IS SBA D/T N/V, BASELINE INDEPENDENT. PT IS A&O X4. PT IS COOPERATIVE WITH CARE. EDUCATED IT INFRASTRUCTURE PROJECT MANAGER LIGHT. PT REPORTS PREVIOUS HOSPITALIZATIONS D/T SAME DX AT [facility]. CIRA HELMS COMPLETED THE ADMISSION ASSESSMENT, SKIN CHECK WITH THIS HIGHWAY INSPECTOR. PT HAS A RIGHT UPPER CHEST MEDIPORT- LABS WERE DRAWN @2200 BY CIRA HANLEY. MEDIPORT WAS ACCESSED AT ED PER ED NURSE SBAR. PT IS REFUSING RT TX, AND HS PO AMITRIPTYLLINE, D/T N/V. PT IS NOT TAKING ANYTHING PO AT THIS TIME. HOB>45 DEGREES. PT REQUESTED PULLUPS; REPORTS THAT WHEN SHE IS SICK SHE HAS SLIGHT INCONTINENCE, BASELINE IS CONTINENT. BP'S HIGH, SEE PREVIOUS NOTE. THIS HIGHWAY INSPECTOR CONTACTED ON-CALL HOSPITALIST. BED AT THE LOWEST POSITION,CALL LIGHT WITHIN REACH. PT IS ABLE TO MAKE HER NEEDS KNOWN.
[2024-10-14 22:03] VITALS: BP 181/100
--- NOTE | 2024-10-14 22:23 | NUR ---
THIS CURATOR OF COLLECTIONS CONTACTED THE ON-CALL HOSPITALIST D/T PT'S BP ELEVATED AT HS. REPORTED THAT WILL PUT IN NEW ORDER FOR IV MEDICATION. SEE EMAR.
[2024-10-14 22:34] LABS: Bun/Creatinine Ratio 10.6 (12.0-20.0); Creatinine, Blood 0.66 mg/dL (0.40-1.00); Phosphorus, Blood 1.9 mg/dL (2.5-4.9); Potassium, Blood 3.9 mmol/L (3.5-5.5)
[2024-10-14 23:47] VITALS: BP 172/103
[2024-10-15] MEDS ORDERED: NS 1,000 ML IV SCH (00:50)
--- NOTE | 2024-10-15 03:18 | NUR ---
SHIFT SUMMARY NO ACUTE EVENTS DURING THIS SHIFT. NS INFUSING 11/08 BAG ORDERED. O2 CONTINUOUS PULSE OXIMETER MID 90'S ON RA. MEDICATED WITH PRN IV 2MG DILAUDID FOR C/O 06/17 ALL FOUR QUADRANT ABDOMINAL PAIN. PER MED REC, PT IS ON 4MG PO DOSE AT HOME BID DILAUDID. MEDICATED WITH ZOFRAN AND REGLAN WITH POOR EFFECTIVNESS. PT HAD MEDIUM AMOUNT OF LIGHT GREENISH EMESIS MULTIPLE TIMES AT HS. PHENERGAN PRN SUPPOSITORY EFFECTIVE. BED AT THE LOWEST POSITION, CALL LIGHT WITHIN REACH. PT IS A&O X4, ABLE TO MAKE HER NEEDS KNOWN, AND COOPERATIVE WITH CARE.
[2024-10-15 04:11] VITALS: BP 109/81
[2024-10-15 07:15] VITALS: BP 136/89
[2024-10-15 08:21] LABS: BASOPHILS ABSOLUTE AUTO 0.02 K/mm3 (0.00-0.23); BASOPHILS PERCENT AUTO 0 % (0-2); EOSINOPHILS PERCENT AUTO 1 % (0-6); Hematocrit 33.4 % (33.0-51.0); Hemoglobin 10.6 g/dL (11.5-16.0); IMMATURE GRAN ABSOLUTE AUTO 0.05 K/mm3 (0.00-0.10); IMMATURE GRAN PERCENT AUTO 0 % (0-1); LYMPHOCYTES PERCENT AUTO 15 % (21-46); MONOCYTES ABSOLUTE AUTO 0.66 K/mm3 (0.16-1.47); MONOCYTES PERCENT AUTO 6 % (4-13); Mean Corpuscular HGB 28.2 pg (26.0-34.0); Mean Corpuscular HGB Conc 31.7 g/dL (31.5-36.5); Mean Corpuscular Volume 89 fL (80-100); Mean Platelet Volume 10.2 fL (9.1-12.4); NEUTROPHILS ABSOLUTE AUTO 8.77 K/mm3 (1.96-9.15); NEUTROPHILS PERCENT AUTO 78 % (41-73); Platelet Count 215 K/mm3 (150-400); RDW Coefficient Variation 14.3 % (11.7-14.2); RDW Standard Deviation 46.5 fL (35.1-46.3); Red Blood Cell Count 3.76 M/mm3 (3.80-5.20)
[2024-10-15 08:50] LABS: Magnesium, Blood 1.5 mg/dL (1.6-2.4)
[2024-10-15 08:54] LABS: Albumin, Blood 2.8 g/dL (3.4-5.0); Bilirubin, Total 0.5 mg/dL (0.1-1.0); Bun/Creatinine Ratio 7.4 (12.0-20.0); Creatinine, Blood 0.68 mg/dL (0.40-1.00); Phosphorus, Blood 1.7 mg/dL (2.5-4.9); Potassium, Blood 2.9 mmol/L (3.5-5.5)
[2024-10-15 08:59] LABS: Albumin/Globulin Ratio 0.9 (0.8-1.8); Calcium, Blood 6.8 mg/dL (8.5-10.1); Total Protein, Blood 5.8 g/dL (6.4-8.2)
[2024-10-15] MEDS ORDERED: Citalopram Hydrobromide 10 MG TAB PO SCH (09:00)
[2024-10-15] MEDS ORDERED: Pantoprazole Sodium 40 MG Injection IV SCH (09:00)
[2024-10-15] MEDS ORDERED: Amitriptyline HCl 10 MG Tab PO SCH (09:00)
[2024-10-15] MEDS ORDERED: Montelukast Sodium 10 MG Tab PO SCH (09:00)
[2024-10-15] MEDS ORDERED: Potassium Phosphate Dibasic 30 MM in Dextrose 5% 500 ML IV STA (09:59)
[2024-10-15] MEDS ORDERED: Magnesium Sulf 2 GM/Water 50ML 50 ML IV SCH (10:05)
[2024-10-15] MEDS ORDERED: Potassium Chl 20MEQ/Water100ML 100 ML IV SCH (14:00)
[2024-10-15] MEDS ORDERED: Lactated Ringer's 1,000 ML IV SCH (14:55)
[2024-10-15 15:40] LABS: Hematocrit 34.8 % (33.0-51.0); Hemoglobin 10.9 g/dL (11.5-16.0)
[2024-10-15 16:23] VITALS: BP 119/76
--- NOTE | 2024-10-15 17:59 | NUR ---
SHIFT SUMMARY PATIENT USING BSC THIS SHIFT. UNABLE TO KEEP LIQUID DIET DOWN, VOMIT IS UNDIGESTED COLORED FLUID AT THIS TIME, NO COFFEE GROUND APPEARANCE. C/O ABDOMINAL PAIN, GIVEN DILAUDED WITH GOOD RELIEF. MEDIPORT ALREADY ACCESSED PRIOR TO START OF SHIFT, INFUSING WELL, DRAWS RED BLOOD WELL. A/O X4. ABLE TO MAKE NEEDS KNOWN. CALL LIGHT IN REACH, CARES ONGOING.
[2024-10-15 19:56] VITALS: BP 131/73
[2024-10-16 04:03] VITALS: BP 152/92
--- NOTE | 2024-10-16 04:28 | NUR ---
SHIFT SUMMARY PT CONTINUES TO HAVE N/V DURING THIS SHIFT. EMESIS >2X DURING A COUGHING EPISODES. MEDICATED WITH PRN IV REGLAN. PT REPORTS 10/10 ABDOMINAL PAIN, REPORTS THAT PULLED A ABDOMINAL MUSCLE WHILE VOMITING. MEDICATED WITH PRN 2MG DILAUDID Q4HRS T/O THIS SHIFT. TELE: SR @66. LR 2/2 BAG INFUSING @125MLS/HR ORDERED. CONTINUOUS PULSE OXIMETER SAT'S>92% ON RA. NO ACUTE EVENTS DURING THIS SHIFT. BED AT THE LOWEST POSITION, CALL LIGHT WITHIN REACH. PT IS A&O X4, ABLE TO MAKE HER NEEDS KNOWN, AND COOPERATIVE WITH CARE.
[2024-10-16 06:21] LABS: BASOPHILS ABSOLUTE AUTO 0.02 K/mm3 (0.00-0.23); BASOPHILS PERCENT AUTO 0 % (0-2); EOSINOPHILS PERCENT AUTO 5 % (0-6); Hematocrit 34.3 % (33.0-51.0); Hemoglobin 10.8 g/dL (11.5-16.0); IMMATURE GRAN ABSOLUTE AUTO 0.01 K/mm3 (0.00-0.10); IMMATURE GRAN PERCENT AUTO 0 % (0-1); LYMPHOCYTES PERCENT AUTO 20 % (21-46); MONOCYTES ABSOLUTE AUTO 0.43 K/mm3 (0.16-1.47); MONOCYTES PERCENT AUTO 6 % (4-13); Mean Corpuscular HGB 28.5 pg (26.0-34.0); Mean Corpuscular HGB Conc 31.5 g/dL (31.5-36.5); Mean Corpuscular Volume 91 fL (80-100); Mean Platelet Volume 10.3 fL (9.1-12.4); NEUTROPHILS ABSOLUTE AUTO 5.01 K/mm3 (1.96-9.15); NEUTROPHILS PERCENT AUTO 68 % (41-73); Platelet Count 203 K/mm3 (150-400); RDW Coefficient Variation 14.5 % (11.7-14.2); RDW Standard Deviation 47.6 fL (35.1-46.3); Red Blood Cell Count 3.79 M/mm3 (3.80-5.20); White Blood Cell Count 7.37 K/mm3 (4.00-11.30)
[2024-10-16 06:34] LABS: Bun/Creatinine Ratio 6.3 (12.0-20.0); Calcium, Blood 8.4 mg/dL (8.5-10.1); Creatinine, Blood 0.95 mg/dL (0.40-1.00); Magnesium, Blood 2.6 mg/dL (1.6-2.4); Phosphorus, Blood 2.3 mg/dL (2.5-4.9); Potassium, Blood 4.2 mmol/L (3.5-5.5)
[2024-10-16 07:14] VITALS: BP 144/76
--- NOTE | 2024-10-16 07:30 | NUR ---
ASSUMED CARE: PT RESTING QUIETLY AT THIS TIME. SINUS PURA AT 58 ON TELE. QT INTERVAL CURRENTLY 0.30 PER HOME HEALTH CARE COORDINATOR. NO ACUTE NEEDS OR CONCERNS AT THIS TIME.
--- NOTE | 2024-10-16 09:49 | NUR ---
CALL TO DR RAMIRES TO REPORT THAT PT'S IVF ORDER IS COMPLETE AND ASKED IF HE WANTS TO CONTINUE DUE TO PT CONTINUING TO VOMIT. DR OLSON WILL REORDER.
[2024-10-16] MEDS ORDERED: Lactated Ringer's 1,000 ML IV SCH (11:00)
[2024-10-16 16:24] VITALS: BP 147/96
--- NOTE | 2024-10-16 18:39 | NUR ---
SHIFT SUMMARY: PT HAS BEEN MEDICATED THROUGHOUT DAY FOR NAUSEA AND PAIN. IV FLUIDS RUNNING DUE TO CONTINUED VOMITING. PT STATES IT HAS BEEN IMPROVING THROUGHOUT DAY AND WAS ABLE TO REST. NO ACUTE NEEDS OR CONCERNS AT THIS TIME.
[2024-10-16 20:49] VITALS: BP 137/89
[2024-10-17 04:35] VITALS: BP 139/97
[2024-10-17 06:07] LABS: Hematocrit 33.7 % (33.0-51.0); Hemoglobin 10.3 g/dL (11.5-16.0)
--- NOTE | 2024-10-17 06:10 | NUR ---
Shift Summary Medicated t/o the night for pain and nausea. Pt states her nausea and emesis are somewhat worse tonight which is disapointing for her. She is rcving LR@125. She is on a clear liquid diet but is unable to keep down anything other than water, she says she had a total of two jello cups in the last 24 hours. She is AOx4, independent to the BSC.
[2024-10-17 06:27] LABS: Calcium, Blood 8.2 mg/dL (8.5-10.1); Creatinine, Blood 1.01 mg/dL (0.40-1.00); Magnesium, Blood 1.9 mg/dL (1.6-2.4); Phosphorus, Blood 2.6 mg/dL (2.5-4.9); Potassium, Blood 3.8 mmol/L (3.5-5.5)
[2024-10-17] MEDS ORDERED: Lactated Ringer's 1,000 ML IV SCH (06:50)
[2024-10-17 07:21] VITALS: BP 158/86
--- NOTE | 2024-10-17 13:06 | NUR ---
DISCHARGE PT DISCHARGED TO HOME VIA PRIVATE VEHICLE AND FAMILY. PORT DEACCESSED, EDUCATION PROVIDED, ALL BELONGINGS WITH PATIENT.
== END 2024-10-17 12:48 | disposition home or self-care (01) | DRG 392 ==
LOC: ER 14:00 → MEDS 14:01 → ERHOLD 14:01 → MEDS 20:24 → ENPENDDIS 10-17 11:14 → MEDS 10-17 12:48
PROVIDERS: Emergency Medicine; Physician Assistant; Student in an Organized Health Care Education/Training Program; ADMIT Student in an Organized Health Care Education/Training Program
DX: K31.84 Gastroparesis (principal); K44.9 Diaphragmatic hernia without obstruction or gangrene; D64.9 Anemia, unspecified; E87.6 Hypokalemia; E83.42 Hypomagnesemia; E83.39 Other disorders of phosphorus metabolism; I10 Essential (primary) hypertension; K58.9 Irritable bowel syndrome, unspecified; J45.909 Unspecified asthma, uncomplicated; F11.90 Opioid use, unspecified, uncomplicated; F41.9 Anxiety disorder, unspecified; Z88.2 Allergy status to sulfonamides; Z88.0 Allergy status to penicillin; Z91.040 Latex allergy status; Z88.8 Allergy status to other drugs, medicaments and biological substances; Z88.5 Allergy status to narcotic agent; Z79.899 Other long term (current) drug therapy; Z87.442 Personal history of urinary calculi; Z90.710 Acquired absence of both cervix and uterus; Z90.49 Acquired absence of other specified parts of digestive tract; Z98.890 Other specified postprocedural states; Z87.891 Personal history of nicotine dependence
CPT/HCPCS: 80047; 80048; 80053; 82330; 83690; 83735; 84100; 85014; 85018; 85025; 85610; 85730; 86850; 86900; 86901; 93005; 93010; 94640; 94664; 94762; 96361; 96365; 96366; 96375; 96376; 99284-25; A9270; G0378; J1171; J1642; J1790; J2405; J2470; J2765; J3475; J3480; J7030; J7060; J7120

== ENCOUNTER 2024-11-30 20:29 | Inpatient (IN) | payer OTHER ==
[~2024-11-30] VITALS: Ht 170.2 cm; Wt 81.7 kg
[2024-11-30 21:50] LABS: BASOPHILS ABSOLUTE AUTO 0.03 K/mm3 (0.00-0.23); BASOPHILS PERCENT AUTO 0 % (0-2); EOSINOPHILS ABSOLUTE AUTO 0.09 K/mm3 (0.00-0.68); EOSINOPHILS PERCENT AUTO 1 % (0-6); Hematocrit 38.6 % (33.0-51.0); Hemoglobin 12.4 g/dL (11.5-16.0); IMMATURE GRAN ABSOLUTE AUTO 0.04 K/mm3 (0.00-0.10); IMMATURE GRAN PERCENT AUTO 0 % (0-1); LYMPHOCYTES ABSOLUTE AUTO 1.13 K/mm3 (0.84-5.20); LYMPHOCYTES PERCENT AUTO 10 % (21-46); MONOCYTES ABSOLUTE AUTO 0.32 K/mm3 (0.16-1.47); MONOCYTES PERCENT AUTO 3 % (4-13); Mean Corpuscular HGB Conc 32.1 g/dL (31.5-36.5); Mean Corpuscular Volume 84 fL (80-100); Mean Platelet Volume 10.2 fL (9.1-12.4); NEUTROPHILS ABSOLUTE AUTO 10.24 K/mm3 (1.96-9.15); NEUTROPHILS PERCENT AUTO 86 % (41-73); Platelet Count 276 K/mm3 (150-400); RDW Coefficient Variation 14.2 % (11.7-14.2); RDW Standard Deviation 43.3 fL (35.1-46.3); Red Blood Cell Count 4.59 M/mm3 (3.80-5.20); White Blood Cell Count 11.85 K/mm3 (4.00-11.30)
[2024-11-30] MEDS ORDERED: Ondansetron HCl 2 MG / ML 2ML Vial IV ONE (22:25)
[2024-11-30 22:29] LABS: Albumin, Blood 4.3 g/dL (3.4-5.0); Bilirubin, Total 0.8 mg/dL (0.1-1.0); Bun/Creatinine Ratio 12.1 (12.0-20.0); Calcium, Blood 9.6 mg/dL (8.5-10.1); Creatinine, Blood 0.66 mg/dL (0.40-1.00); Globulin, Blood 4.1 g/dL (2.2-4.0); Potassium, Blood 4.2 mmol/L (3.5-5.5); Total Protein, Blood 8.4 g/dL (6.4-8.2)
[2024-11-30] MEDS ORDERED: NS 1,000 ML IV SCH (22:55)
[2024-11-30] MEDS ORDERED: HYDROmorphone HCl/Pf 1MG SYR IV ONE (22:55)
[2024-11-30] MEDS ORDERED: Metoclopramide HCl 5MG / ML 2ML Vial IV ONE (22:55)
[2024-12-01] MEDS ORDERED: DiphenhydrAMINE HCl 50 MG/ML 1ML Vial IV ONE (00:40)
[2024-12-01] MEDS ORDERED: Prochlorperazine Edisylate 10 mg Vial IV ONE (00:45)
[2024-12-01] MEDS ORDERED: NS 1,000 ML IV SCH ×3 (01:15→12:35)
[2024-12-01] MEDS ORDERED: HYDROmorphone HCl/Pf 1MG SYR IV ONE (01:15)
[2024-12-01] MEDS ORDERED: Metoclopramide HCl 5MG / ML 2ML Vial IV PRN (01:25)
[2024-12-01] MEDS ORDERED: Ondansetron HCl 2 MG / ML 2ML Vial IV PRN (01:30)
[2024-12-01] MEDS ORDERED: FLU VACC TS2024-25(6MOS UP)/PF 45 MCG/0.5 ML SYRINGE IM ONE (01:30)
[2024-12-01] MEDS ORDERED: FentaNYL Citrate 50 MCG/ML 2 ML Injection IV PRN (01:30)
[2024-12-01 02:05] LABS: Source, Urine Clean Catch
[2024-12-01 02:08] LABS: Bilirubin, Urine Neg (Neg); Blood, Urine 1+ (Neg); Glucose Qualitative, Urine Neg (Neg); Ketones, Urine 3+ (Neg); Leukocyte Esterase, Urine Neg (Neg); Nitrite, Urine Neg (Neg); Protein, Urine 1+ (Neg); Urobilinogen, Urine NORM (Normal)
[2024-12-01 02:19] LABS: Appearance, Urine Clear (Clear); Color, Urine Yellow (P-Yellow)
[2024-12-01 02:20] LABS: Bacteria Few /hpf; Red Blood Cells, Urine 0-2 /hpf (0-2); Squamous Epithelial Cells Few /hpf (Few); White Blood Cells, Urine 0-2 /hpf (0-5)
[2024-12-01 07:33] LABS: BASOPHILS ABSOLUTE AUTO 0.02 K/mm3 (0.00-0.23); BASOPHILS PERCENT AUTO 0 % (0-2); EOSINOPHILS ABSOLUTE AUTO 0.06 K/mm3 (0.00-0.68); EOSINOPHILS PERCENT AUTO 1 % (0-6); Hematocrit 34.7 % (33.0-51.0); Hemoglobin 10.9 g/dL (11.5-16.0); IMMATURE GRAN ABSOLUTE AUTO 0.03 K/mm3 (0.00-0.10); IMMATURE GRAN PERCENT AUTO 0 % (0-1); LYMPHOCYTES ABSOLUTE AUTO 1.29 K/mm3 (0.84-5.20); LYMPHOCYTES PERCENT AUTO 13 % (21-46); MONOCYTES ABSOLUTE AUTO 0.53 K/mm3 (0.16-1.47); MONOCYTES PERCENT AUTO 5 % (4-13); Mean Corpuscular HGB 26.7 pg (26.0-34.0); Mean Corpuscular HGB Conc 31.4 g/dL (31.5-36.5); Mean Corpuscular Volume 85 fL (80-100); Mean Platelet Volume 9.9 fL (9.1-12.4); NEUTROPHILS ABSOLUTE AUTO 8.23 K/mm3 (1.96-9.15); NEUTROPHILS PERCENT AUTO 81 % (41-73); Platelet Count 204 K/mm3 (150-400); RDW Coefficient Variation 14.4 % (11.7-14.2); RDW Standard Deviation 44.5 fL (35.1-46.3); Red Blood Cell Count 4.08 M/mm3 (3.80-5.20); White Blood Cell Count 10.16 K/mm3 (4.00-11.30)
[2024-12-01 07:51] LABS: Albumin, Blood 3.6 g/dL (3.4-5.0); Calcium, Blood 8.4 mg/dL (8.5-10.1); Creatinine, Blood 0.75 mg/dL (0.40-1.00); Globulin, Blood 3.6 g/dL (2.2-4.0); Potassium, Blood 3.7 mmol/L (3.5-5.5); Total Protein, Blood 7.2 g/dL (6.4-8.2)
[2024-12-01] MEDS ORDERED: Enoxaparin 40 MG/0.4 ML SYR SC SCH (09:00)
[2024-12-01 11:10] VITALS: BP 168/119
[2024-12-01] MEDS ORDERED: HYDROmorphone HCl/Pf 1MG SYR IV PRN ×2 (12:35→20:01)
[2024-12-01] MEDS ORDERED: HydrALAZINE HCl 20 MG / ML 1ML Vial IV PRN (12:35)
[2024-12-01 14:36] VITALS: BP 146/83
[2024-12-01] MEDS ORDERED: Pantoprazole Sodium 40 MG Injection IV SCH (17:00)
--- NOTE | 2024-12-01 18:25 | NUR ---
SUMMARY PT HAS BEEN NAUSEATED AND PAINFUL T/O DAY BUT APPEARS MORE COMFORTABLE THAN WHEN INITIALLY ARRIVED TO FLOOR. MEDICATED T/O DAY FOR NAUSEA AND PAIN. HAD EMESIS DURING SHIFT. EMESIS BAGS PROVIDED. BSC NEXT TO BED DUE TO PT REPORTING URGENCY. IV FLUIDS INFUSING PER ORDERS. CALL LIGHT IN REACH.
[2024-12-01 19:47] VITALS: BP 147/91
[2024-12-01] MEDS ORDERED: LORazepam 2 MG/ML 1ML Injection IV ONE (20:00)
[2024-12-02 04:33] VITALS: BP 135/97
--- NOTE | 2024-12-02 05:33 | NUR ---
SHIFT SUMMARY VSS, NO ACUTE EVENTS ON TELE. PT SLEPT ON AND OFF T/O THE NIGHT. PT STRUGGLED T/O THE NIGHT W/ NAUSEA AND PAIN ANY TIME SHE WAS AWAKE. MEDICATED PER EMAR W/ ZOFRAN AND REGLAN FOR NAUSEA, AND A ONE TIME DOSE OF ATIVAN. MEDICATED FOR PAIN W/ DILAUDID. OVERALL, MINIMAL RELIEF NOTED. EMESIS NOTED TO BE LIGHT GREEN, SMALL AMOUNTS AT A TIME, ABOUT 100 ML'S. IVF INFUSING PER EMAR. PT UTILIZING BSC, LOW URINE OUTPUT NOTED. PT POORLY TOLLERATING PO ICE CHIPS. CALL PLACED TO THE HOSPITALIST THIS AM R/T UNCONTROLLABLE NAUSEA, RECIEVED ORDER FOR ANOTHER DOSE OF ATIVAN.
[2024-12-02] MEDS ORDERED: LORazepam 2 MG/ML 1ML Injection IV ONE (06:05)
[2024-12-02 06:09] LABS: Hematocrit 35.7 % (33.0-51.0); Hemoglobin 11.2 g/dL (11.5-16.0); Mean Corpuscular HGB 26.9 pg (26.0-34.0); Mean Corpuscular HGB Conc 31.4 g/dL (31.5-36.5); Mean Corpuscular Volume 86 fL (80-100); Mean Platelet Volume 10.8 fL (9.1-12.4); Platelet Count 249 K/mm3 (150-400); RDW Coefficient Variation 14.7 % (11.7-14.2); RDW Standard Deviation 45.1 fL (35.1-46.3); Red Blood Cell Count 4.17 M/mm3 (3.80-5.20); White Blood Cell Count 9.16 K/mm3 (4.00-11.30)
[2024-12-02 06:38] LABS: Albumin, Blood 3.5 g/dL (3.4-5.0); Anion Gap 12 mmol/L (3-11); Blood Urea Nitrogen 7 mg/dL (8-24); CO2, Blood 23 mmol/L (21-32); Chloride, Blood 111 mmol/L (98-108); Creatinine, Blood 0.87 mg/dL (0.40-1.00); Glomerular Filtration Rate 82 (60-); Glucose, Blood 91 mg/dL (70-99); Magnesium, Blood 1.6 mg/dL (1.6-2.4); Phosphorus, Blood 1.8 mg/dL (2.5-4.9); Potassium, Blood 3.4 mmol/L (3.5-5.5); Sodium, Blood 143 mmol/L (136-145)
[2024-12-02 07:27] VITALS: BP 191/105
[2024-12-02] MEDS ORDERED: Potassium Phosphate Dibasic 20 MM in Dextrose 5% 500 ML IV STA (08:00)
[2024-12-02 15:11] VITALS: BP 131/97
--- NOTE | 2024-12-02 18:46 | NUR ---
SHIFT SUMMARY PT ADMITTED FOR INTRACTABLE N/V, A/OX4, VSS, IV FLUIDS INFUSING, C/O NAUSEA T/O THE SHIFT TODAY, ATTEMPTED TO SPACE OUT HER 2 ANTIEMETICS TO PROVIDE MORE EVEN COVERAGE THEY WERE CLUSETERED PRIOR TO THIS SHIFT WHICH MADE HER GO A BIT LONGER BEFORE SHE WAS ABLE TO GET A DOSE. CHRONIC PAIN REMAINS UNCHANGED. NO ACUTE EVENTS, CALL LIGHT IN REACH.
[2024-12-02 19:09] VITALS: BP 149/84
--- NOTE | 2024-12-02 20:38 | NUR ---
PHYSICIAN COMMUNICATION CALLED HOSPITALIST YVETTE REGARDING PT REQUESTING RECTAL PHENERGAN. HE REQUESTED TO CHECK QTC FIRST BEFORE ORDER. PT ON TELE, Mechanology INFORMED THIS NURSE QTC @0.44. 25MG RECTAL PHENERGAN ORDERED Q6PRN. INFORMED PRIMARY NURSE.
[2024-12-02] MEDS ORDERED: Promethazine HCl 25 MG Supp PR PRN (20:40)
[2024-12-02 21:47] VITALS: BP 145/85
--- NOTE | 2024-12-02 21:53 | NUR ---
CALL TO HOSPITALIST. PT REPORTED CHEST PAIN EPISODES LASTING 10 SECONDS DURING VOMIT EPISODES. PT STATED ONSET STARTED EARLIER TODAY BUT DIDN'T SAY ANYTHING B/C SHE THOUGHT IT WAS "PLEURISY PAIN". EKG OBTAINED. PT IS ON TELEMETRY WITHOUT REPORTED EVENTS, TECH STATES NSR WITH OCCASIONAL BRADYCARDIA. ABOVE REPORTED TO HOSPITALIST, NO NEW ORDERS ASIDE FROM CHANGING EARLIER PHENERGAN ORDER TO A ONE TIME DOSE PRN INSTEAD OF AN ONGOING ORDER.
[2024-12-03] MEDS ORDERED: Mometasone/Formoterol MDI 100/5 mcg 13 GM INH SCH (03:05)
[2024-12-03] MEDS ORDERED: Albuterol HFA200 ACT/6.7 GM INH INH PRN (03:05)
--- NOTE | 2024-12-03 03:07 | NUR ---
NEW ORDERS RECEIVED. CALL PLACED TO HOSPITALIST FOR ORDERS FOR DULERA INHALER AND VENTOLIN PRN. PT REQUESTED MEDS ON EMAR SHE TAKES THEM AT HOME. ORDERS RECEIVED.
[2024-12-03] MEDS ORDERED: Promethazine HCl 25 MG Supp PR PRN (03:10)
[2024-12-03 05:09] VITALS: BP 121/86
[2024-12-03 06:23] LABS: Albumin, Blood 3.2 g/dL (3.4-5.0); Anion Gap 11 mmol/L (3-11); Blood Urea Nitrogen 7 mg/dL (8-24); Bun/Creatinine Ratio 8.4 (12.0-20.0); CO2, Blood 24 mmol/L (21-32); Calcium, Blood 7.9 mg/dL (8.5-10.1); Chloride, Blood 109 mmol/L (98-108); Creatinine, Blood 0.84 mg/dL (0.40-1.00); Glomerular Filtration Rate 86 (60-); Glucose, Blood 84 mg/dL (70-99); Potassium, Blood 3.1 mmol/L (3.5-5.5); Sodium, Blood 141 mmol/L (136-145)
[2024-12-03 07:26] VITALS: BP 138/88
--- NOTE | 2024-12-03 07:44 | NUR ---
SHIFT SUMMARY NOC. PT ADMITTED FOR N/V. A/O X4. PT MEDICATED FOR N/V WITH ZOFRAN/REGLAN WITH REPORTED RELIEF. PT MEDICATED FOR ABD PAIN WITH DILAUDID WITH REPORTED RELIEF. PT PRODUCING EMESIS AT START OF SHIFT BUT REPORTS IMPROVEMENT IN VOMITING AT BEDSIDE REPORT THIS MORNING. PT VOIDING VIA BSC. NO TELEMETRY EVENTS THIS SHIFT. EKG OBTAINED AND PLACED IN CHART THIS SHIFT. SEE OTHER NOTE RE. CHEST PAIN. MAKES NEEDS KNOWN AND CALL LIGHT IN REACH.
[2024-12-03] MEDS ORDERED: Potassium Phosphate Dibasic 25 MM in Dextrose 5% 500 ML IV SCH (08:30)
[2024-12-03] MEDS ORDERED: POTCHL20ER PO (12:27)
--- NOTE | 2024-12-03 15:38 | NUR ---
DISCHARGE SUMMARY S/P INTRACT VOMITTING, A/OX4, VSS, TOLERATING PO INTAKE, PT FEELS "MUCH BETTER" TODAY, RECONCILED HER HOME MEDICATIONS WITH HER IT APPEARED THAT IT HAD NOT BEED DONE YET. DEACCESED HER PORT BEFORE REALIZING THAT IT WAS NOT HEPARIN LOCKED. DISCUSSED THIS WITH HER AND THAT WE WOULD NEED TO REACCESS IT TO HEPARIN LOCK IT AND SHE WAS AGREEABLE TO THE PROCEEDURE AND IT WAS DONE BY THE ETHYLENE PLANT HELPER. SHE WAS THEN ESCORTED OUT VIA WC TO PRIVATE AUTO TO GO HOME.
== END 2024-12-03 16:07 | disposition home or self-care (01) | DRG 392 ==
LOC: ER 20:29 → ERHOLD 20:30 → SURS 12-01 10:58
PROVIDERS: Internal Medicine; Student in an Organized Health Care Education/Training Program; ADMIT Internal Medicine
DX: K31.84 Gastroparesis (principal); E87.6 Hypokalemia; E83.39 Other disorders of phosphorus metabolism; F11.90 Opioid use, unspecified, uncomplicated; K58.9 Irritable bowel syndrome, unspecified; K44.9 Diaphragmatic hernia without obstruction or gangrene; E86.0 Dehydration; J45.909 Unspecified asthma, uncomplicated; Z87.442 Personal history of urinary calculi; Z98.890 Other specified postprocedural states; Z79.899 Other long term (current) drug therapy; Z88.2 Allergy status to sulfonamides; Z88.5 Allergy status to narcotic agent; Z88.0 Allergy status to penicillin; Z91.040 Latex allergy status; Z88.8 Allergy status to other drugs, medicaments and biological substances; Z90.710 Acquired absence of both cervix and uterus; Z90.49 Acquired absence of other specified parts of digestive tract; Z87.891 Personal history of nicotine dependence
CPT/HCPCS: 74176; 80053; 80069; 81001; 83690; 83735; 83880; 85025; 85027; 93005; 93010; 94640; 94664; 94762; 96372; 96374; 96375; 96376; 99285-25; A9270; G0378; J0780; J1171; J1200; J1642; J1650; J2060; J2405; J2470; J2765; J3010; J7030; J7060

== ENCOUNTER 2025-02-27 15:06 | Inpatient (IN) | payer OTHER ==
[~2025-02-27] VITALS: Ht 170.2 cm; Wt 85.8 kg
[~2025-02-27 15:06] MED LIST changes: +CARAFATE1 GM/10 M1 PO; -DULERA 100 MCG/13 GM INH; +DULERA 200 MCG-13 GM INH; +POTCHL20ER PO
[2025-02-27] MEDS ORDERED: Droperidol 5 mg/2 ml Vial IV ONE ×2 (15:35→17:25)
[2025-02-27] MEDS ORDERED: FentaNYL Citrate 50 MCG/ML 2 ML Injection IV ONE ×2 (15:35→17:25)
[2025-02-27] MEDS ORDERED: Lactated Ringer's 1,000 ML IV ONE ×2 (15:35→15:40)
[2025-02-27] MEDS ORDERED: Pantoprazole Sodium 40 MG Injection IV ONE (15:40)
[2025-02-27 15:49] LABS: BASOPHILS ABSOLUTE AUTO 0.03 K/mm3 (0.00-0.23); BASOPHILS PERCENT AUTO 0 % (0-2); EOSINOPHILS ABSOLUTE AUTO 0.66 K/mm3 (0.00-0.68); EOSINOPHILS PERCENT AUTO 6 % (0-6); Hemoglobin 11.1 g/dL (11.5-16.0); IMMATURE GRAN ABSOLUTE AUTO 0.04 K/mm3 (0.00-0.10); IMMATURE GRAN PERCENT AUTO 0 % (0-1); LYMPHOCYTES ABSOLUTE AUTO 1.34 K/mm3 (0.84-5.20); LYMPHOCYTES PERCENT AUTO 12 % (21-46); MONOCYTES ABSOLUTE AUTO 0.51 K/mm3 (0.16-1.47); MONOCYTES PERCENT AUTO 4 % (4-13); Mean Corpuscular HGB 24.7 pg (26.0-34.0); Mean Corpuscular Volume 82 fL (80-100); Mean Platelet Volume 10.1 fL (9.1-12.4); NEUTROPHILS ABSOLUTE AUTO 9.01 K/mm3 (1.96-9.15); NEUTROPHILS PERCENT AUTO 78 % (41-73); Platelet Count 291 K/mm3 (150-400); RDW Coefficient Variation 15.8 % (11.7-14.2); RDW Standard Deviation 47.4 fL (35.1-46.3); White Blood Cell Count 11.59 K/mm3 (4.00-11.30)
[2025-02-27 16:14] LABS: Albumin, Blood 3.7 g/dL (3.4-5.0); Bilirubin, Total 0.7 mg/dL (0.1-1.0); Bun/Creatinine Ratio 9.1 (12.0-20.0); Calcium, Blood 8.8 mg/dL (8.5-10.1); Creatinine, Blood 0.77 mg/dL (0.40-1.00); Globulin, Blood 3.7 g/dL (2.2-4.0); Potassium, Blood 3.7 mmol/L (3.5-5.5); Total Protein, Blood 7.4 g/dL (6.4-8.2)
[2025-02-27] MEDS ORDERED: Ondansetron HCl 2 MG / ML 2ML Vial IV ONE (21:10)
[2025-02-27] MEDS ORDERED: HYDROmorphone HCl/Pf 1MG SYR IV ONE (21:20)
[2025-02-27] MEDS ORDERED: Ondansetron HCl 2 MG / ML 2ML Vial IV PRN (21:25)
[2025-02-27] MEDS ORDERED: Metoclopramide HCl 5MG / ML 2ML Vial IV PRN (21:25)
[2025-02-27] MEDS ORDERED: HYDROmorphone HCl/Pf 1MG SYR IV PRN (21:30)
[2025-02-27] MEDS ORDERED: Lactated Ringer's 1,000 ML IV SCH (21:30)
[2025-02-27] MEDS ORDERED: Albuterol 2.5 MG/3 ML VIAL INH PRN (21:30)
[2025-02-27] MEDS ORDERED: Mometasone/Formoterol MDI 200/5 mcg 13 GM INH SCH (21:45)
[2025-02-27] MEDS ORDERED: LORazepam 2 MG/ML 1ML Injection IV ONE (22:00)
[2025-02-27 23:26] VITALS: BP 155/96
--- NOTE | 2025-02-28 00:10 | NUR ---
ADMIT NOTE 49 YR OLD FEMALAE ADMITTED TO FLOOR FROM THE ED WITH DX OF REFRACTORY N AND V. REPORTED COFFEE GROUND EMESIS. NONE OBSERVED HERE ON THE FLOOR OF THIS WRITING. ON CLEAR LIQUID DIET. ANTIEMETIC ADMIN. BP ELEVATED, OTHERWISE VSS. ORIENTED TO USE OF CALL LIGHT. UP AD HERVE TO BEDSIDE COMMODE. CONTINENT. ABLE TO REPOSITION SELF IN BED WITHOUT ASSIST. CALL LIGHT INREACH. ARILS UP X 2 AND BED IN LOW POSITION. FOR SAFETY.
--- NOTE | 2025-02-28 00:31 | NUR ---
LR ORDERED AND IS INFUSING AT 100 ML/HR ORDERED. PT RESTING QUIETLY. CALL [facility]
--- NOTE | 2025-02-28 03:40 | NUR ---
CLINICAL MICROBIOLOGIST SUMMARY WAS ADMITTED TO FLOOR FROM THE ED EARLIER IN THE SHIFT WITH DX OF REFRACTORY NAUSEA AND VOMITING. ED RN REPORTED HAD COFFEE GROUND EMESIS. BP ELEVATED, OTHERWISE VSS. ALERT AND ORIENTED. COOPERATIVE WITH CARE. UP AD HERVE. RECEIVED ANTI NAUSEA AND PAIN MEDS - SEE JAN FOR DETAILS. MEDS EFFECTIVE, RESTING QUIETLY INTERMITTENTLY. CL LIQ DIET. LR INFUSING AT 100 ML/HR. ABLE TO REPOSITION SELF IN BED WITHOUT ASSIST. CALL LIGHT IN REACH, RAILS UP X 2 AND BED IN LOW POSITION FOR SAFETY. WILL CONTINUE TO MONITOR
[2025-02-28 04:09] VITALS: BP 126/86
[2025-02-28 05:27] LABS: BASOPHILS ABSOLUTE AUTO 0.03 K/mm3 (0.00-0.23); BASOPHILS PERCENT AUTO 0 % (0-2); EOSINOPHILS ABSOLUTE AUTO 0.06 K/mm3 (0.00-0.68); EOSINOPHILS PERCENT AUTO 1 % (0-6); Hematocrit 34.2 % (33.0-51.0); Hemoglobin 10.4 g/dL (11.5-16.0); IMMATURE GRAN ABSOLUTE AUTO 0.05 K/mm3 (0.00-0.10); IMMATURE GRAN PERCENT AUTO 0 % (0-1); LYMPHOCYTES ABSOLUTE AUTO 1.67 K/mm3 (0.84-5.20); LYMPHOCYTES PERCENT AUTO 14 % (21-46); MONOCYTES PERCENT AUTO 5 % (4-13); Mean Corpuscular HGB 24.8 pg (26.0-34.0); Mean Corpuscular HGB Conc 30.4 g/dL (31.5-36.5); Mean Corpuscular Volume 81 fL (80-100); Mean Platelet Volume 10.5 fL (9.1-12.4); NEUTROPHILS PERCENT AUTO 80 % (41-73); Platelet Count 263 K/mm3 (150-400); RDW Coefficient Variation 15.9 % (11.7-14.2); White Blood Cell Count 12.31 K/mm3 (4.00-11.30)
[2025-02-28 06:00] LABS: Albumin, Blood 3.4 g/dL (3.4-5.0); Albumin/Globulin Ratio 0.9 (0.8-1.8); Bilirubin, Total 0.7 mg/dL (0.1-1.0); Bun/Creatinine Ratio 6.7 (12.0-20.0); Calcium, Blood 8.6 mg/dL (8.5-10.1); Creatinine, Blood 0.74 mg/dL (0.40-1.00); Globulin, Blood 3.6 g/dL (2.2-4.0); Magnesium, Blood 1.8 mg/dL (1.6-2.4); Phosphorus, Blood 2.2 mg/dL (2.5-4.9); Potassium, Blood 3.7 mmol/L (3.5-5.5)
[2025-02-28] MEDS ORDERED: Pantoprazole Sodium 40 MG Injection IV SCH (06:00)
[2025-02-28 07:23] VITALS: BP 134/88
[2025-02-28] MEDS ORDERED: Potassium Phosphate Dibasic 20 MM in Dextrose 5% 500 ML IV STA (07:52)
[2025-02-28] MEDS ORDERED: Enoxaparin 40 MG/0.4 ML SYR SC SCH (09:00)
[2025-02-28] MEDS ORDERED: LORazepam 2 MG/ML 1ML Injection IV PRN (09:20)
--- NOTE | 2025-02-28 09:20 | NUR ---
NOTIFIED DR. QUINTERO OF QTC INTERVAL BEING GREATER THAN 470. EKG THIS AM READ QTC BEING 498. DR. QUINTERO TO REVIEW CHART AT THIS TIME. PATIENT STATING HAVING LOTS OF ANXIETY. DR. QUINTERO NOTIFIED AND ORDERED IV ATIVAN Q6 PRN FOR ANX/INTRACTABLE NAUSEA/VOMITING.
[2025-02-28] MEDS ORDERED: AMIT50 PO (10:28)
[2025-02-28 11:22] VITALS: BP 117/86
[2025-02-28 15:27] VITALS: BP 125/78
--- NOTE | 2025-02-28 18:11 | NUR ---
SUMMARY PATIENT RIGHT HAND IV BECOMING DILODGED. PATIENT HAS POWERPORT TO RIGHT UPPER CHEST. DR. QUINTERO ORDERED TO ACCESS. ACCESSED THIS AM AND HAS LR RUNNING CONTINUOUSLY AT 100. PATIENT HAS REFUSED ALL MEALS TODAY. PATIENT REPORTED FEELING VERY ANXIOUS THIS MORNING. DR. QUINTERO NOTIFIED AND ORDERED PRN IV ATIVAN. PATIENT REPORTS RELIEF WITH IV ATIVAN PRN ANTIEMETICS AND PRN PAIN MEDS IV DILAUDID. PATIENT HAS ATTEMPTED TO SLEEP TODAY. FEELING OVERWHELMED TODAY. WANTING TO LAY IN DARK ROOM WITH DOOR CLOSED, MINIMAL INTERUPPTIONS. IND TO BSC. GEN WEAKNESS. PATIENT RECEIVED POTASSIUM PHOSPHATE REPLACEMENT THIS AM.
[2025-02-28 19:38] VITALS: BP 133/100
[2025-02-28 23:28] VITALS: BP 110/79
[2025-03-01 04:03] VITALS: BP 145/93
--- NOTE | 2025-03-01 04:10 | NUR ---
SHIFT SUMMARY NO ACUTE EVENTS DURING THIS SHIFT. PT REPORTS 9/10 ABDOMINAL PAIN. PT C/O N/V AND NO PO INTAKE DURING THIS SHIFT. MEDICATED WITH PRN REGLAN, ZOFRAN, AND DILAUDID ORDERED. PT ALSO REQUESTING PRN ATIVAN FOR ANXIETY. ADMINISTERED ORDERED. PT REPORTS NEW PAIN ON RUQ, REPORTS HIATIAL HERNIA PAIN ON LUQ THAT IS CHRONIC. THIS AIRLINE PILOT ATTEMPTED TO USE THE CONTINUOUS PULSE OXIMETER D/T MEDICATION REGIMEN. CONTACTED RT WELL. UNABLE TO GET THE BIOX MACHINES TO CORPORATE COMMUNICATIONS SPECIALIST THE O2 SAT'S. NO WORD BACK FROM THE RT. BIOX DISCONNECTED. O2 SAT'S DURING VS TAKEN LOW 90'S. ENCOURAGED DEEP BREATHING AND PT EDUCATED ON DEEP BREATHING TECHNIQUES. ALSO EDUCATED ON MEDICATIONS THAT CAUSE RESPIRATORY DEPRESSION. PT VERBALIZED UNDERSTANDING. BED AT THE LOWEST POSITION, CALL LIGHT W/I REACH. PT RESTING, RR EVEN, UNLABORED. PT LIKES TO STAY IN A DARK, QUIET ROOM WITH MINIMAL DISTRACTIONS. PT IS A/O X4, ABLE TO MAKE HER NEEDS KNOWN AND COOPERATIVE WITH CARE.
[2025-03-01 06:00] LABS: BASOPHILS ABSOLUTE AUTO 0.04 K/mm3 (0.00-0.23); BASOPHILS PERCENT AUTO 1 % (0-2); EOSINOPHILS ABSOLUTE AUTO 0.52 K/mm3 (0.00-0.68); EOSINOPHILS PERCENT AUTO 7 % (0-6); Hematocrit 31.8 % (33.0-51.0); Hemoglobin 9.7 g/dL (11.5-16.0); IMMATURE GRAN ABSOLUTE AUTO 0.02 K/mm3 (0.00-0.10); IMMATURE GRAN PERCENT AUTO 0 % (0-1); LYMPHOCYTES ABSOLUTE AUTO 2.06 K/mm3 (0.84-5.20); LYMPHOCYTES PERCENT AUTO 27 % (21-46); MONOCYTES ABSOLUTE AUTO 0.53 K/mm3 (0.16-1.47); MONOCYTES PERCENT AUTO 7 % (4-13); Mean Corpuscular HGB 25.2 pg (26.0-34.0); Mean Corpuscular HGB Conc 30.5 g/dL (31.5-36.5); Mean Corpuscular Volume 83 fL (80-100); Mean Platelet Volume 10.4 fL (9.1-12.4); NEUTROPHILS ABSOLUTE AUTO 4.38 K/mm3 (1.96-9.15); NEUTROPHILS PERCENT AUTO 58 % (41-73); Platelet Count 229 K/mm3 (150-400); RDW Standard Deviation 48.2 fL (35.1-46.3); Red Blood Cell Count 3.85 M/mm3 (3.80-5.20); White Blood Cell Count 7.55 K/mm3 (4.00-11.30)
[2025-03-01 06:20] LABS: Bun/Creatinine Ratio 5.3 (12.0-20.0); Calcium, Blood 7.9 mg/dL (8.5-10.1); Creatinine, Blood 0.94 mg/dL (0.40-1.00); Potassium, Blood 3.6 mmol/L (3.5-5.5)
[2025-03-01 07:30] VITALS: BP 132/72
[2025-03-01 11:59] VITALS: BP 140/77
[2025-03-01 16:02] VITALS: BP 154/91
--- NOTE | 2025-03-01 18:41 | NUR ---
SHIFT SUMMARY: PT A&O X4. PLEASANT AND COOPERATIVE WITH CARE. PT SBA IN ROOM D/T LINES AND WEAKNESS. PT HAS BEEN NAUSEA AND PAINFUL ALL T/O SHIFT. MEDICATED PER EMAR. PT UNABLE TO TOLERATE ANY PO INTAKE. NS INFUSING IN MEDIPORT @ 100/HR. PT ABLE TO EAT JELLO FOR DINNER BUT UNABLE TO KEEP IT DOWN AND BEGAN PROJECTILE VOMITING. PT LETHARGIC T/O SHIFT. CALL LIGHT IN REACH. BED IN LOWEST POSITION.
[2025-03-01 20:18] VITALS: BP 134/69
[2025-03-01 23:41] VITALS: BP 136/83
[2025-03-02 03:16] VITALS: BP 149/79
[2025-03-02 06:57] LABS: Hematocrit 31.4 % (33.0-51.0); Hemoglobin 9.6 g/dL (11.5-16.0); Mean Corpuscular HGB Conc 30.6 g/dL (31.5-36.5); Mean Corpuscular Volume 82 fL (80-100); Mean Platelet Volume 9.5 fL (9.1-12.4); Platelet Count 204 K/mm3 (150-400); RDW Coefficient Variation 15.4 % (11.7-14.2); RDW Standard Deviation 46.2 fL (35.1-46.3); Red Blood Cell Count 3.84 M/mm3 (3.80-5.20); White Blood Cell Count 7.88 K/mm3 (4.00-11.30)
--- NOTE | 2025-03-02 07:19 | NUR ---
Rn shift summary: Patient is alert and oriented. Pt has remained painful and nauseated throughout the shift. 300 cc of emisis, bile colored. Pt has received dilaudid for pain, reglan x2 ativan 2mg x1 and zofran x1. Patient has been NPO except for ice chips. She states she is not going to eat today. Pt was able to sleep for several hour stretches which was helpful. Pt is voiding clear yellow urine. Pt able to transfer independantly to commode. Call light in reach.
[2025-03-02 07:35] LABS: Ferritin, Serum 4 ng/mL (8-252); Magnesium, Blood 1.7 mg/dL (1.6-2.4)
[2025-03-02 07:36] LABS: Albumin, Blood 2.9 g/dL (3.4-5.0); Anion Gap 10 mmol/L (3-11); Blood Urea Nitrogen 5 mg/dL (8-24); Bun/Creatinine Ratio 5.6 (12.0-20.0); CO2, Blood 27 mmol/L (21-32); Chloride, Blood 104 mmol/L (98-108); Creatinine, Blood 0.89 mg/dL (0.40-1.00); Glomerular Filtration Rate 80 (60-); Glucose, Blood 66 mg/dL (70-99); Phosphorus, Blood 2.3 mg/dL (2.5-4.9); Potassium, Blood 3.6 mmol/L (3.5-5.5); Sodium, Blood 137 mmol/L (136-145)
[2025-03-02 07:43] VITALS: BP 143/87
[2025-03-02 11:46] VITALS: BP 131/75
[2025-03-02] MEDS ORDERED: Iron Dextran 50 MG / ML 2ML Vial IV ONE ×2 (12:30→13:00)
[2025-03-02] MEDS ORDERED: Iron Dextran 975 MG in NS 250 ML IV ONE ×2 (12:30→14:00)
[2025-03-02 16:03] VITALS: BP 148/87
--- NOTE | 2025-03-02 18:18 | NUR ---
SHIFT SUMMARY: PT A&O X4. PLEASANT AND COOPERATIVE WITH CARE. PT CONTINUES SAME REGIMEN OF PAIN, NAUSEA, AND ANXIETY MEDICATION. PT UNABLE TO TOLERATE PO INTAKE THIS SHIFT DESPITE NAUSEA MEDICATION. IRON DEXTRAN INFUSION COMPLETED THIS SHIFT W/O COMPLICATIONS. SBA TO BSC. TELE D/C THIS SHIFT. LR INFUSING @ 100/HR. CALL LIGHT IN REACH. BED IN LOWEST POSITION.
[2025-03-02 19:24] VITALS: BP 142/77
[2025-03-02] MEDS ORDERED: LORazepam 2 MG/ML 1ML Injection IV ONE (20:40)
[2025-03-02] MEDS ORDERED: Promethazine HCl 25 MG Supp PR PRN (20:40)
--- NOTE | 2025-03-02 20:42 | NUR ---
HOSPITALIST CALLED AT 2034 BECAUSE PT IS STILL HAVING VOMITING EPISODES W/ANTIEMETICS. HOSPITALIST ORDERED RECTAL PHENERGAN AT 25MG Q6PRN. ALSO A ONE TIME DOSE OF ATIVAN 2MG NOW TO ALSO HELP W/NAUSEA. PT REPORTS FEELING MORE NAUSEA AFTER IRON INFUSION TODAY.
[2025-03-03 01:42] VITALS: BP 140/88
[2025-03-03] MEDS ORDERED: Prochlorperazine Edisylate 10 mg Vial IV ONE ×2 (04:00→21:25)
--- NOTE | 2025-03-03 05:53 | NUR ---
SHIFT SUMM: PT IS A 49 YO FULL CODE WHO WAS ADMITTED FOR REFRACTORY NAUSEA AND VOMITING. OT HAS BEEN ON CONT LR AT 100ML/HR. PT HAS NOT BEEN ABLE TO TOLERATE ANYTHING PO NOT EVEN WATER THIS SHIFT. PT HAS BEEN ON DILAUDID Q2 AND MULTIPLE NAUSEA MEDS (SEE EMAR). PT HAS ACCESS IN CHEST WALL MEDIPORT. PT HAS SEVERE GASTRIC PERESIS HIST THAT IS VERY PAINFUL FOR PT. PT IS A SBA TO COMMODE FOR WEAKNESS. PT IS A&OX4 AND CALLS TO MAKE NEEDS KNOWN AND WANTS MEDS SOON THEY BECOME AVAILABLE. PT HAS CALL LIGHT IN REACH. PT HAS NOT BEEN ABLE TO GET MUCH REST THIS EVENING DUE TO THE NAUSEA AND VOMITING. PT HAS BEEN THROWING UP 50-100 ML OF GREEN/YELLOW BILE IN EMESIS BAGS. PT STATES "THE NAUSEA AND VOMMITING GOT WORSE AFTER RECIEVING IRON YESTERDAY" I EDUCATED THE PT THAT THE DILAUDID COULD BE MAKING HER EXPERIENCE NAUSEA WELL AND SHE DOES NOT THINK SO.
[2025-03-03 07:15] VITALS: BP 145/83
[2025-03-03 16:08] VITALS: BP 136/83
--- NOTE | 2025-03-03 18:08 | NUR ---
NOTE PT ALERT. COPERATIVE WITH CARE. SHE HAS NEEDED REGULAR MEDICATION FGOR NAUSE AAND PAIN. SHE IS ALWAYS AROUSABLE TO VOICE. VSS. IVF INFUSING. PT REPORTS THAT MEDIPORT IS A POWER PORT. SHE HAS A PLAIN SALES NEEDLE FOR ACCESS. REDRESSED MEDIPORT TODAY. SHE HAS ATTEMPTED ICE WATER BUT HASN'T BEEN ABLE TO KEEP IT DOWN. USING BSC. BED LOW. CALL LIGHT WITH IN REACH. CARE ONGOING.
[2025-03-03 19:13] VITALS: BP 144/91
[2025-03-03] MEDS ORDERED: HYDROmorphone HCl/Pf 1MG SYR IV PRN (21:25)
--- NOTE | 2025-03-03 23:13 | NUR ---
HOSPITALIST CALLED AT 2129 BECAUSE PT WAS REQUESTING COMPAZINE BECAUSE OTHER NAUSEA MEDS WERE NOT HELPING. HOSPITALIST DECREASED HER DILAUDID FROM 1MG Q2 TO 0.5MG Q2. I EXPRESSED THAT THE PT HAS BEEN ON THE 1 MG 2Q DILAUDID SINCE SHE HAS GOTTEN HERE AND ALSO TAKES IT AT HOME FOR SEVERE PAIN W/HER GASTRIC PERESIS AND HOSPITALIST STATES THAT'S SHES TAKING TO MUCH AND D/C'D OLD ORDER AND PUT IN NEW ORDER W/A ONE TIME DOSE OF COMPAZINE.
--- NOTE | 2025-03-04 01:37 | NUR ---
PT WAS FEELING A LITTLE MORE SOB BUT DID NOT WANT A NEBULIZER TREATMENT BECAUSE IT MAKES HER FEEL NAUSEAS. HOSPITALIST WANTED AN ORDER FOR BD PROTOCOL INITIATED. RT NOTIFIED AT 0140
[2025-03-04] MEDS ORDERED: Albuterol HFA200 ACT/6.7 GM INH INH PRN (01:45)
[2025-03-04 04:04] VITALS: BP 132/74
--- NOTE | 2025-03-04 04:57 | NUR ---
SHIFT SUMMARY: PT HAS STILL BEEN EXPERIENCING NAUSEA AND VOMITING THIS SHIFT BUT SEEMS TO BE FEELING BETTER COMPARED TO YESTERDAY. PT TRIED TO EAT SOME ORANGE JELLO AND WAS NOT ABLE TO TOLERATE IT. PT HAS BEEN GIVEN NAUSEA MEDS AND DILAUDID IT BECOMES AVAILABLE FOR ABDOMEN PAIN AND NAUSEA. PT IS IND TO THE [facility] AND CONTINUES TO HAVE LR AT 100ML/HR. PT CONTINUES TO VOMIT GREEN/YELLOW BILE. PT HAS A R UPPER CHEST POWER PORT FOR ACCESS. PT HAS BEEN GIVEN INHALOR TREATMENT THIS SHIFT FOR SOB AND FEELS BETTER BUT CONTINUES TO SOUND WHEEZY IN UPPER LOBES. PT HAS CALL LIGHT IN REACH.
[2025-03-04 06:52] LABS: Hematocrit 32.2 % (33.0-51.0); Hemoglobin 9.9 g/dL (11.5-16.0); Mean Corpuscular HGB 25.2 pg (26.0-34.0); Mean Corpuscular HGB Conc 30.7 g/dL (31.5-36.5); Mean Corpuscular Volume 82 fL (80-100); Platelet Count 208 K/mm3 (150-400); RDW Coefficient Variation 15.2 % (11.7-14.2); RDW Standard Deviation 45.5 fL (35.1-46.3); Red Blood Cell Count 3.93 M/mm3 (3.80-5.20); White Blood Cell Count 6.39 K/mm3 (4.00-11.30)
[2025-03-04 07:14] VITALS: BP 139/84
[2025-03-04 07:31] LABS: Magnesium, Blood 1.6 mg/dL (1.6-2.4)
[2025-03-04 07:43] LABS: Albumin, Blood 3.1 g/dL (3.4-5.0); Anion Gap 11 mmol/L (3-11); Blood Urea Nitrogen 2 mg/dL (8-24); Bun/Creatinine Ratio 2.8 (12.0-20.0); CO2, Blood 23 mmol/L (21-32); Calcium, Blood 8.3 mg/dL (8.5-10.1); Chloride, Blood 106 mmol/L (98-108); Creatinine, Blood 0.72 mg/dL (0.40-1.00); Glomerular Filtration Rate 103 (60-); Glucose, Blood 77 mg/dL (70-99); Phosphorus, Blood 2.8 mg/dL (2.5-4.9); Potassium, Blood 3.4 mmol/L (3.5-5.5); Sodium, Blood 137 mmol/L (136-145)
[2025-03-04] MEDS ORDERED: Sucralfate 1000MG / 10ML UD BTL PO SCH (11:30)
[2025-03-04] MEDS ORDERED: Metoclopramide HCl 10 MG Tab PO SCH (11:30)
--- NOTE | 2025-03-04 13:49 | NUR ---
DISCHARGE SUMMARY PATIENT DISCHARGED HOME WITH TO DRIVE. PORT INSTILLED WITH HEPARIN AND DEACCESSED. ABLE TO TOLERATE SOFT FOODS AND REGULAR FLUIDS AT THIS TIME WITHOUT INCREASED PAIN, NAUSEA/VOMITING. DISCHARGE PACKET GIVEN AND REVIEWED, QUESTIONS ANSWERED, VERBALIZED UNDERSTANDING.
[2025-03-04] MEDS ORDERED: HYDROmorphone HCl 4 MG Tab PO SCH (21:00)
[2025-03-04] MEDS ORDERED: ClonazePAM 1 MG Tab PO SCH (21:00)
== END 2025-03-04 13:39 | disposition home or self-care (01) | DRG 392 ==
LOC: ER 15:06 → ERHOLD 15:07 → MEDS 15:07
PROVIDERS: Emergency Medicine; Internal Medicine; Nurse Practitioner Acute Care; ADMIT Internal Medicine
DX: K31.84 Gastroparesis (principal); F11.20 Opioid dependence, uncomplicated; D64.9 Anemia, unspecified; F41.1 Generalized anxiety disorder; J45.909 Unspecified asthma, uncomplicated; K29.70 Gastritis, unspecified, without bleeding; K58.9 Irritable bowel syndrome, unspecified; E28.2 Polycystic ovarian syndrome; G89.29 Other chronic pain; E83.39 Other disorders of phosphorus metabolism; Z88.2 Allergy status to sulfonamides; Z88.8 Allergy status to other drugs, medicaments and biological substances; Z88.0 Allergy status to penicillin; Z88.5 Allergy status to narcotic agent; Z91.040 Latex allergy status
CPT/HCPCS: 36415; 80048; 80053; 80069; 82272; 82607; 82728; 83690; 83735; 84100; 85025; 85027; 93005; 93010; 94640; 94664; 94760; 94762; 96361; 96365; 96366; 96374; 96375; 96376; 97161; 97530; 99285-25; A9270; G0378; J0780; J1171; J1642; J1750; J1790; J2060; J2405; J2470; J2765; J3010; J7050; J7060; J7120

== ENCOUNTER 2025-04-30 19:46 | Inpatient (IN) | payer OTHER ==
[~2025-04-30] VITALS: Ht 167.6 cm; Wt 70.3 kg
[~2025-04-30 19:46] MED LIST changes: +AMIT50 PO; +B-1100 M1 PO; +CITALOPRAM HBR20 M9 PO; +HYOS.125 PO; +PRAZOSIN HCL1 M2 PO; +QUETIAPINE FUMA25 MG PO
[2025-04-30] MEDS ORDERED: NS 1,000 ML IV SCH (20:10)
[2025-04-30] MEDS ORDERED: Metoclopramide HCl 5MG / ML 2ML Vial IV ONE (20:15)
[2025-04-30] MEDS ORDERED: HYDROmorphone HCl/Pf 1MG SYR IV ONE ×3 (20:15→23:50)
[2025-04-30 20:34] LABS: BASOPHILS ABSOLUTE AUTO 0.03 K/mm3 (0.00-0.23); BASOPHILS PERCENT AUTO 0 % (0-2); EOSINOPHILS ABSOLUTE AUTO 0.02 K/mm3 (0.00-0.68); EOSINOPHILS PERCENT AUTO 0 % (0-6); Hematocrit 39.8 % (33.0-51.0); Hemoglobin 12.8 g/dL (11.5-16.0); IMMATURE GRAN ABSOLUTE AUTO 0.08 K/mm3 (0.00-0.10); IMMATURE GRAN PERCENT AUTO 1 % (0-1); LYMPHOCYTES ABSOLUTE AUTO 0.97 K/mm3 (0.84-5.20); LYMPHOCYTES PERCENT AUTO 8 % (21-46); MONOCYTES ABSOLUTE AUTO 0.57 K/mm3 (0.16-1.47); MONOCYTES PERCENT AUTO 5 % (4-13); Mean Corpuscular HGB Conc 32.2 g/dL (31.5-36.5); Mean Corpuscular Volume 87 fL (80-100); Mean Platelet Volume 10.3 fL (9.1-12.4); NEUTROPHILS ABSOLUTE AUTO 10.16 K/mm3 (1.96-9.15); NEUTROPHILS PERCENT AUTO 86 % (41-73); Platelet Count 246 K/mm3 (150-400); RDW Coefficient Variation 18.9 % (11.7-14.2); Red Blood Cell Count 4.57 M/mm3 (3.80-5.20); White Blood Cell Count 11.83 K/mm3 (4.00-11.30)
[2025-04-30 20:58] LABS: Magnesium, Blood 1.7 mg/dL (1.6-2.4)
[2025-04-30 20:59] LABS: Albumin, Blood 3.4 g/dL (3.4-5.0); Albumin/Globulin Ratio 0.9 (0.8-1.8); Bilirubin, Total 0.6 mg/dL (0.1-1.0); Bun/Creatinine Ratio 5.8 (12.0-20.0); Calcium, Blood 9.1 mg/dL (8.5-10.1); Creatinine, Blood 0.86 mg/dL (0.40-1.00); Globulin, Blood 3.6 g/dL (2.2-4.0); Potassium, Blood 3.7 mmol/L (3.5-5.5)
[2025-04-30] MEDS ORDERED: DiphenhydrAMINE HCl 50 MG/ML 1ML Vial IV ONE (21:05)
[2025-04-30] MEDS ORDERED: Prochlorperazine Edisylate 10 mg Vial IV ONE (21:05)
[2025-04-30] MEDS ORDERED: Lidocaine 2% Viscous Soln 15 ML UDC PO ONE (21:25)
[2025-04-30] MEDS ORDERED: Mag Hydrox/AL Hydrox/Simeth 30 ML UDC PO ONE (21:25)
[2025-04-30] MEDS ORDERED: FentaNYL Citrate 50 MCG/ML 2 ML Injection IV ONE (21:45)
[2025-04-30] MEDS ORDERED: Ondansetron HCl 2 MG / ML 2ML Vial IV ONE (23:25)
[2025-04-30] MEDS ORDERED: Promethazine HCl 25 MG Supp PR ONE (23:55)
[2025-05-01] MEDS ORDERED: DiphenhydrAMINE HCl 50 MG/ML 1ML Vial ONE (00:02)
[2025-05-01] MEDS ORDERED: FentaNYL Citrate 50 MCG/ML 2 ML Injection IV PRN (00:10)
[2025-05-01] MEDS ORDERED: NS 1,000 ML IV ONE (00:10)
[2025-05-01] MEDS ORDERED: Metoclopramide HCl 5MG / ML 2ML Vial IV PRN (00:10)
[2025-05-01] MEDS ORDERED: Ondansetron HCl 2 MG / ML 2ML Vial IV PRN ×2 (00:10→07:45)
[2025-05-01] MEDS ORDERED: Pantoprazole Sodium 40 MG Injection IV SCH (00:20)
[2025-05-01 00:31] LABS: Phosphorus, Blood 1.6 mg/dL (2.5-4.9)
--- NOTE | 2025-05-01 00:50 | NUR ---
REPORT RECEIVED FROM FELISHA (CARBIDE TOOL MAKER) AND AWAITING PT T/F TO ROOM 341.
[2025-05-01] MEDS ORDERED: Magnesium Sulf 2 GM/Water 50ML 50 ML IV ONE (01:00)
[2025-05-01] MEDS ORDERED: Potassium Chl 20MEQ/Water100ML 100 ML IV SCH (01:00)
[2025-05-01 01:28] VITALS: BP 153/123
[2025-05-01] MEDS ORDERED: Sodium Phosphate 30 MM in Dextrose 5% 500 ML IV ONE (03:30)
[2025-05-01] MEDS ORDERED: HYDROmorphone HCl/Pf 1MG SYR IV PRN (04:20)
[2025-05-01 04:22] LABS: Source, Urine Voided
[2025-05-01 04:41] LABS: Bilirubin, Urine Neg (Neg); Blood, Urine Neg (Neg); Glucose Qualitative, Urine Neg (Neg); Ketones, Urine 3+ (Neg); Leukocyte Esterase, Urine Neg (Neg); Nitrite, Urine Neg (Neg); Protein, Urine Neg (Neg); Specific Gravity, Urine 1.015 (1.003-1.022); Urobilinogen, Urine NORM (Normal)
[2025-05-01 04:49] LABS: Appearance, Urine Clear (Clear); Color, Urine Yellow (P-Yellow)
[2025-05-01 05:26] VITALS: BP 149/100
--- NOTE | 2025-05-01 05:51 | NUR ---
ADMIT AND SUMMARY: PT ADMIT TO ROOM 341 VIA GURNEY AT 0115. SHE WAS ORIENTED TO ROOM AND CALL SYSTEM, IS A/OX4 AND INDEPENDENT IN ROOM. 1L NS AND SODIUM PHOSPHATE ARE INFUSING AND MAG SULFATE AND K-RIDERS WERE RECEIVED. PT CONT'S TO HAVE PERSISTENT N/V AND ABDO PAIN. PRN ZOFRAN, REGLAN AND FENTANYL PROVIDED FOR TEMPORARY RELIEF. NEW ORDER RECIEVED FOR DILAUDED 1-2MG IV PRN X2 DOSES, WILL CONTINUE TO EVALUATE NEED. ABDO IS TENDER, DISTENDED AND PT IS SLIGHTLY GUARDED BUT BT'S ARE (+) X4 QUADS. SHE'S UP AD HERVE TO VOID AND UA WAS COLLECTED W/RESULTS PENDING. MEDIPORT IS ACCESSED TO [facility] AND NEW IV WAS PLACED TO LGAMALIEL AC FOR MULTIPLE INFUSIONS REQUIRED. SHE'S HYPERTENSIVE AT TIMES WHEN AWAKE ANXIETY R/T PAIN/NAUSEA BUT BP IMPROVES WHEN PT BECOMES MORE COMFORTABLE ALL OTHER VSS/AFEBRILE. NO ACUTE CHANGES. WILL REPORT TO DAY RN.
[2025-05-01 06:45] LABS: BASOPHILS ABSOLUTE AUTO 0.02 K/mm3 (0.00-0.23); BASOPHILS PERCENT AUTO 0 % (0-2); EOSINOPHILS ABSOLUTE AUTO 0.04 K/mm3 (0.00-0.68); EOSINOPHILS PERCENT AUTO 0 % (0-6); Hematocrit 37.7 % (33.0-51.0); Hemoglobin 12.3 g/dL (11.5-16.0); IMMATURE GRAN ABSOLUTE AUTO 0.11 K/mm3 (0.00-0.10); IMMATURE GRAN PERCENT AUTO 1 % (0-1); LYMPHOCYTES ABSOLUTE AUTO 1.27 K/mm3 (0.84-5.20); LYMPHOCYTES PERCENT AUTO 13 % (21-46); MONOCYTES PERCENT AUTO 8 % (4-13); Mean Corpuscular HGB 28.7 pg (26.0-34.0); Mean Corpuscular HGB Conc 32.6 g/dL (31.5-36.5); Mean Corpuscular Volume 88 fL (80-100); Mean Platelet Volume 10.4 fL (9.1-12.4); NEUTROPHILS ABSOLUTE AUTO 7.61 K/mm3 (1.96-9.15); NEUTROPHILS PERCENT AUTO 77 % (41-73); Platelet Count 242 K/mm3 (150-400); RDW Coefficient Variation 18.9 % (11.7-14.2); Red Blood Cell Count 4.29 M/mm3 (3.80-5.20); White Blood Cell Count 9.85 K/mm3 (4.00-11.30)
[2025-05-01 07:08] LABS: Albumin, Blood 3.1 g/dL (3.4-5.0); Albumin/Globulin Ratio 0.8 (0.8-1.8); Bilirubin, Total 0.6 mg/dL (0.1-1.0); Bun/Creatinine Ratio 3.9 (12.0-20.0); Calcium, Blood 7.9 mg/dL (8.5-10.1); Creatinine, Blood 0.77 mg/dL (0.40-1.00); Globulin, Blood 3.7 g/dL (2.2-4.0); Potassium, Blood 3.8 mmol/L (3.5-5.5); Total Protein, Blood 6.8 g/dL (6.4-8.2)
[2025-05-01 07:23] VITALS: BP 125/83
[2025-05-01] MEDS ORDERED: Metoclopramide HCl 10 MG Tab PO ONE (08:30)
[2025-05-01] MEDS ORDERED: Enoxaparin 40 MG/0.4 ML SYR SC SCH (09:00)
[2025-05-01] MEDS ORDERED: Metoclopramide HCl 10 MG Tab PO SCH (11:30)
[2025-05-01] MEDS ORDERED: Metoclopramide HCl 5MG / ML 2ML Vial IV SCH (11:30)
[2025-05-01] MEDS ORDERED: NS 250 ML IV PRN (12:20)
[2025-05-01 16:30] VITALS: BP 126/80
--- NOTE | 2025-05-01 18:39 | NUR ---
SHIFT SUMMARY PT CONT WITH LEVEL OF CARE. PT NOTED TO CONT WITH MANAGEMENT OF N/V THIS SHIFT. PHYSICIAN NOTIFIED AND REGLAN AND ZOFRAN MEDICATION WAS CHANGED AROUND. PT NOW HAS REGLAN SCHEDULED AND ZOFRAN NEEDED. PROVIDER STATED TO CONT WITH PT BEING NPO TIL N/V CONTROLLED THEN ADAT. PROVIDER ALSO STATED THAT ONCE N/V CONTROLLED THAT IV MEDICATION WILL BE CHANGED TO PO. PT ALSO NOTED TO VOICE C/O PAIN TO ABD THROUGHOUT THIS SHIFT AND WAS MEDICATED PER EMAR SEE MAR FOR DETAILS.
[2025-05-01 19:23] VITALS: BP 134/109
[2025-05-01] MEDS ORDERED: Formoterol/Mometasone MDI 5/200 mcg 13 GM INH SCH (21:55)
[2025-05-01] MEDS ORDERED: Albuterol HFA200 ACT/6.7 GM INH INH PRN (21:55)
[2025-05-01] MEDS ORDERED: ClonazePAM 1 MG Tab PO ONE (22:00)
[2025-05-01] MEDS ORDERED: ClonazePAM 1 MG Tab PO PRN (22:00)
--- NOTE | 2025-05-02 04:22 | NUR ---
SHIFT SUMMARY PATIENT UP AND IND IN THE ROOM, CALLING APPROPRIATELY FOR NEEDS. SHE CONTINUED TO BE PAINFUL THROUGHOUT THE NIGHT, UTILIZING 50 MCG FENT Q4H W/ MODERATE PAIN RELIEF. ADVANCED TO A FEW ICE CHIPS W/ NO VOMITING. NAUSEA PERSISTED, ZOFRAN GIVEN Q6H PER EMAR. PATIENT HAD "PANIC ATTACK" AND STATED THAT SHE TAKES KLONOPIN AT HOME FOR ANXIETY, PHYSICIAN NOTIFIED AND HE PLACED ORDER FOR KLONOPIN 2X DAILY. PATIENT ABLE TO TAKE VIA PO WITH A SIP OF WATER AND HAD NO VOMITING. PT REQUEST TO HAVE NO MALES IN HER ROOM, FOOT MITER OPERATOR NOTIFIED. CALL LIGHT IN REACH, BED IN LOWEST POSITION.
[2025-05-02 05:27] VITALS: BP 119/90
[2025-05-02 06:43] LABS: Bun/Creatinine Ratio 3.9 (12.0-20.0); Calcium, Blood 8.3 mg/dL (8.5-10.1); Creatinine, Blood 1.02 mg/dL (0.40-1.00); Potassium, Blood 3.8 mmol/L (3.5-5.5)
[2025-05-02 07:17] VITALS: BP 130/91
[2025-05-02] MEDS ORDERED: HYDROmorphone HCl 2 MG Tab PO PRN (09:55)
[2025-05-02] MEDS ORDERED: NS 1,000 ML IV SCH (10:00)
[2025-05-02 17:00] VITALS: BP 128/81
[2025-05-02] MEDS ORDERED: LORazepam 2 MG/ML 1ML Injection IV ONE (18:25)
--- NOTE | 2025-05-02 18:33 | NUR ---
DAY SUMMARY A&OX4, VSS, INDEP IN ROOM, MEDICATED PER MAR FOR ANX, PAIN, AND NAUSEA, CURRENTLY TOLERATING FULL LIQUID DIET, BEDRESTING AT THIS TIME, CALL LIGHT IN REACH, WILL CONT TO MONITOR UNTIL REPORT GIVEN TO ONCOMING NURSE.
[2025-05-02 19:34] VITALS: BP 129/93
[2025-05-03 03:03] VITALS: BP 108/61
[2025-05-03 04:02] VITALS: BP 132/96
[2025-05-03] MEDS ORDERED: Prochlorperazine Edisylate 10 mg Vial IV ONE (05:00)
[2025-05-03] MEDS ORDERED: HYDROmorphone HCl/Pf 1MG SYR IV PRN ×2 (05:15→07:55)
--- NOTE | 2025-05-03 06:37 | NUR ---
SHIFT SUMMARY VSS. IND. SEEMS TOLERATING FL DIET. STILL ON CONT IV HYDRATION. PAIN SLIGHTLY CONTROLLED FENTANYL. PROVIDED COMFORT ON SLEEP BUT STILL BOTHERED BY EPISODES OF PAIN AND SICKNESS. DURING SERVICES ENGINEER VOMITTED MULTIPLE TIMES AND CONTACTED PHYSICIAN DR BENITEZ THRICE FOR ORDER OF ANTI-EMETICS AND EARLY DOSE OF REGLAN. SHIFTED DILAUDID TO IV DUE TO SEVERE N/V THEN SEEMED SHE SLEPT WELL AGAIN AFTER ADMINISTRATION.
[2025-05-03 07:17] LABS: Creatinine, Blood 1.01 mg/dL (0.40-1.00); Potassium, Blood 3.9 mmol/L (3.5-5.5)
[2025-05-03] MEDS ORDERED: NS 1,000 ML IV SCH (08:00)
[2025-05-03 08:51] VITALS: BP 134/97
[2025-05-03] MEDS ORDERED: Prochlorperazine Edisylate 10 mg Vial IV PRN (10:35)
--- NOTE | 2025-05-03 15:54 | NUR ---
DAY SUMMARY VSS, C/O INCREASED PAIN AND NAUSEA THIS SHIFT (MEDICATED PER JAN), 300MLS OF EMESIS RECORDED, MD AWARE, DIET CHANGED TO NPO (PT AWARE), BEDRESTING AT THIS TIME, CALL LIGHT IN REACH, WILL CONT TO MONITOR UNTIL REPORT GIVEN TO ONCOMING NURSE.
[2025-05-03 16:38] VITALS: BP 126/86
[2025-05-03 19:20] VITALS: BP 123/84
[2025-05-04 03:33] VITALS: BP 132/93
--- NOTE | 2025-05-04 06:09 | NUR ---
SHIFT SUMMARY: AOX4. INDEPENDENT IN ROOM. PT REQUIRED PAIN MEDICINE Q4 HOURS AND COMPAZINE. NO EPISODES OF EMESIS THIS SHIFT. PT IS STILL NPO. ABDOMEN IS HYPOACTIVE TO BOWEL SOUNDS AND TENDER TO PALPATION. CALL LIGHT IS WITHIN REACH. BED IS LOW AND LOCKED.
[2025-05-04 06:20] LABS: Bun/Creatinine Ratio 5.3 (12.0-20.0); Calcium, Blood 8.3 mg/dL (8.5-10.1); Creatinine, Blood 0.95 mg/dL (0.40-1.00); Potassium, Blood 3.7 mmol/L (3.5-5.5)
[2025-05-04 06:59] VITALS: BP 126/73
[2025-05-04] MEDS ORDERED: Diazepam 5 MG / ML 2ML SYR IV ONE (15:00)
[2025-05-04 15:04] VITALS: BP 141/91
--- NOTE | 2025-05-04 19:37 | NUR ---
SHIFT SUMMARY PT A&OX4. PT ADMITTED DUE TO NON DIABETIC GASTROPERESIS. PT REPORTS ABD PAIN. PT GETS PAIN MEDS PER EMAR. PT REPORTS NAUSEA, MANAGED PER EMAR. PT VOMITTED ABOUT 700CC TODAY. PT HAS ADVANCED DIET TOLERATED ORDERS. DR. DUNLAP REPORTED CAN START HER ON CLEAR LIQUID AND SEE HOW SHE DOES. SHE HAD WATER WITH ICE SIPS AT A TIME THROUGH SHIFT AND HAD MORE LIQUIDS AT DINNER. PT REPORTS NAUSEA COMES AND GOES. VSS. PT DENIED SOB. PT IN BED, BED IN LOWEST POSITION. CALL LIGHT IN REACH.
[2025-05-04 19:44] VITALS: BP 133/80
--- NOTE | 2025-05-05 01:30 | NUR ---
Heparin for mediport deaccess Ordered heparin for mediport deaccess per protocol. Patient has an order to access mediport as well as a heparin flush that was ordered but none to deaccess port when patient no longer using the port or when she discharges. Heparin ordered per protocol for deaccessing port..
[2025-05-05 04:04] VITALS: BP 133/89
--- NOTE | 2025-05-05 07:17 | NUR ---
Shift Summary AOx4. Ad soila in room. Continent. Last BM on 04/30 prior to admission which is apparently normal for her. Perhaps starting her on some liquid colace (pt is on a clear liquid diet as of now) for bowel care. Once diet is advanced further, maybe consider other bowel meds. Medicated for pain, nausea/vomiting, and anxiety per EMAR w/ good effect. Emesis x 1. Calling appropriately for needs. VSS.
[2025-05-05 07:27] VITALS: BP 139/86
[2025-05-05] MEDS ORDERED: Lactulose 20 GM/30 ML UDC PO ONE (11:25)
[2025-05-05] MEDS ORDERED: Promethazine HCl 12.5 MG Supp PR PRN (11:30)
[2025-05-05] MEDS ORDERED: Polyethylene Glycol 3350 17 gm PO PRN (11:30)
[2025-05-05 15:02] VITALS: BP 124/97
--- NOTE | 2025-05-05 19:37 | NUR ---
SHIFT SUMMARY PT A&OX4. PT ADMITTED DUE TO NON DIABETIC GASTROPERESIS. PT REPORTS NO CHEST PAIN/SOB. PT REPORTS HAVING NO ISSUES WITH URINATING. DR. SMITH D/C BLADDER SCAN. PT REPORTED NAUSEA TODAY. PT TOLERATED CLEAR LIQUIDS THIS AM. PT REPORTED TOLERATING FULL LIQUIDS FOR LUNCH, PT REPORTS TOLERATING REGULAR DIET FOR DINNER. PT REPORTS NO VOMITTING TODAY. PT REPORTED ABD PAIN. PT REPORTED NOT HAVING BM IN DAYS, DR. SMITH ORDERED BOWEL CARE. PT REPORTED GURGLING TUMMY. VSS. NS RUNNING AT 75ML/HR. PT IN BED, BED IN LOWEST POSITION, CALL LIGHT IN REACH.
[2025-05-05 19:38] VITALS: BP 128/83
[2025-05-05] MEDS ORDERED: Docusate Sodium/Senna 1 Tab PO SCH (21:00)
[2025-05-06 04:02] VITALS: BP 128/79
--- NOTE | 2025-05-06 05:51 | NUR ---
Continuous Pulse Oximetry Order BUSINESS REPRESENTATIVE was in obtaining vitals and noticed oxygen sats from finger on L hand showing approx 85% on RA when patient drifts off but when patient becomes slightly awake again, sats show above 90%. Concern for respiratory depression r/t IV narcotics, called Dr. Littlejohn to request for continuous biox monitoring. Order received. Patient is independent in room and thus reluctant to be attached to any more lines than she already is. Called RT to ask about a wireless continuous biox which will be more appropriate and comfortable for patient. RT is looking into this.
--- NOTE | 2025-05-06 06:15 | NUR ---
Shift Summary Assumed care as of 05/05/25 @ 1900. Appears to be in good spirits as pt is now tolerating her newly advanced diet for dinner last night. No signs of vomiting noted throughout the night, however, she does continue to be painful with reports of severe pain requiring 2mg IV dilaudid q 4 hours, sometimes even requesting it earlier at the 3 hour narciso along with compazine. Pain is adequately managed per patient. Patient was a little more drowsier tonight compared to yesterday. Patient reports good PO fluid intake during the day. She is also still getting NS intravenously. Perhaps consider d/c IV fluid? Wireless HATCH TENDER pending setup, awaiting RT status update on whether or not they have a chip available. Ad soila to bathroom, output measured via hat. Bed in lowest position, call light in reach.
[2025-05-06 06:35] LABS: Albumin, Blood 2.7 g/dL (3.4-5.0); Anion Gap 8 mmol/L (3-11); Blood Urea Nitrogen 1 mg/dL (8-24); Bun/Creatinine Ratio 1.2 (12.0-20.0); CO2, Blood 29 mmol/L (21-32); Chloride, Blood 104 mmol/L (98-108); Creatinine, Blood 0.82 mg/dL (0.40-1.00); Glomerular Filtration Rate 88 (60-); Glucose, Blood 88 mg/dL (70-99); Phosphorus, Blood 2.8 mg/dL (2.5-4.9); Potassium, Blood 3.3 mmol/L (3.5-5.5); Sodium, Blood 138 mmol/L (136-145)
[2025-05-06 07:39] VITALS: BP 120/89
[2025-05-06] MEDS ORDERED: Lactulose 20 GM/30 ML UDC PO ONE (09:00)
[2025-05-06] MEDS ORDERED: Potassium Chloride 20 MEQ TabCR PO ONE (09:00)
[2025-05-06] MEDS ORDERED: HYDROmorphone HCl 4 MG Tab PO PRN (09:00)
[2025-05-06] MEDS ORDERED: Metoclopramide HCl 10 MG Tab PO SCH (11:30)
[2025-05-06] MEDS ORDERED: DOCUZEN 8.6-501 EACH PO (12:35)
[2025-05-06] MEDS ORDERED: MIRALAX17 GM PO (12:36)
--- NOTE | 2025-05-06 13:18 | NUR ---
DISCHARGE NOTE PT A&OX4. PT ADMITTED FOR NON DIABETIC GASTROPERESIS. PT REPORTS ABD PAIN, PAIN MANGED PER EMAR. PT INDEPENDENT IN ROOM. PT HAD CHG BATH TODAY. FLUIDS D/C TODAY. METIPORT DEACCESSED TODAY PER ORDER AND HEPARIN FLUSHED. DR. SMITH ORDERED ONE TIME DOSE OF LACTOLOSE AND POTASSIUM. REPORTED POTASSIUM WAS 3.[address] SMITH ORDERED DISCHARGE. PT HAD NO REPORTS OF NAUSEA AND VOMMITING. PT REPORTED "IMPROVEMENT, READY TO GO HOME." WENT OVER DISCHARGE INSTRUCTIONS W PATIENT. MEDS FAXED TO PREFERED PHARMACY. PT AWARE WILL PILOT [facility] TOMORROW. DUE TO PREFERED PHARMACY CLOSED TODAY. PT LEFT WITH PERSONAL BELONGINGS. PT ESCORTED BY WHEELCHAIR TO ER ENTERANCE BY THIS RN.
== END 2025-05-06 13:11 | disposition home or self-care (01) | DRG 392 ==
LOC: ER 19:46 → MEDS 19:47
PROVIDERS: Internal Medicine; Student in an Organized Health Care Education/Training Program; ADMIT Internal Medicine
DX: K31.84 Gastroparesis (principal); J45.909 Unspecified asthma, uncomplicated; F12.90 Cannabis use, unspecified, uncomplicated; E86.0 Dehydration; E28.2 Polycystic ovarian syndrome; K44.9 Diaphragmatic hernia without obstruction or gangrene; F41.9 Anxiety disorder, unspecified; E83.39 Other disorders of phosphorus metabolism; D64.9 Anemia, unspecified; K58.1 Irritable bowel syndrome with constipation; Z79.891 Long term (current) use of opiate analgesic; Z87.442 Personal history of urinary calculi; Z90.710 Acquired absence of both cervix and uterus; Z90.49 Acquired absence of other specified parts of digestive tract; Z98.890 Other specified postprocedural states; Z87.891 Personal history of nicotine dependence; Z88.0 Allergy status to penicillin; Z88.2 Allergy status to sulfonamides; Z88.5 Allergy status to narcotic agent; Z88.8 Allergy status to other drugs, medicaments and biological substances; Z79.899 Other long term (current) drug therapy
CPT/HCPCS: 80048; 80053; 80069; 81003; 82947; 83735; 83880; 84100; 85025; 94640; 94664; 94760; 94762; 96361; 96374; 96375; 96376; 99284-25; A9270; G0378; J0780; J1171; J1200; J1642; J2060; J2405; J2470; J2765; J3010; J3360; J3475; J3480; J7030; J7050; J7060

== ENCOUNTER 2025-05-11 13:43 | Inpatient (IN) | payer OTHER ==
[~2025-05-11] VITALS: Ht 170.2 cm; Wt 81.7 kg
[~2025-05-11 13:43] MED LIST changes: +DOCUZEN 8.6-501 EACH PO; +MIRALAX17 GM PO
[2025-05-11] MEDS ORDERED: DiphenhydrAMINE HCl 50 MG/ML 1ML Vial IV ONE ×2 (14:25→16:55)
[2025-05-11] MEDS ORDERED: NS 1,000 ML IV SCH ×3 (14:25→16:55)
[2025-05-11] MEDS ORDERED: Metoclopramide HCl 5MG / ML 2ML Vial IV ONE ×2 (14:25→16:55)
[2025-05-11] MEDS ORDERED: Dexamethasone Sod Phos 10 MG/ML 1ML VIAL IV ONE ×2 (14:30→16:55)
[2025-05-11 15:17] LABS: Alanine Aminotransfer (ALT/SGP 15.0 U/L (12-78); Albumin, Blood 3.4 g/dL (3.4-5.0); Albumin/Globulin Ratio 0.9 (0.8-1.8); Anion Gap 9.0 mmol/L (3-11); Aspartate Aminotrans (AST/SGOT 9.0 U/L (12-37); Bilirubin, Total 0.6 mg/dL (0.1-1.0); Blood Urea Nitrogen 6.0 mg/dL (8-24); CO2, Blood 28.0 mmol/L (21-32); Calcium, Blood 8.8 mg/dL (8.5-10.1); Chloride, Blood 106.0 mmol/L (98-108); Creatinine, Blood 0.76 mg/dL (0.40-1.00); Globulin, Blood 3.6 g/dL (2.2-4.0); Glucose, Blood 140.0 mg/dL (70-99); Magnesium, Blood 1.4 mg/dL (1.6-2.4); Potassium, Blood 3.5 mmol/L (3.5-5.5); Sodium, Blood 139.0 mmol/L (136-145); Total Protein, Blood 7.0 g/dL (6.4-8.2)
[2025-05-11 15:20] LABS: BASOPHILS ABSOLUTE AUTO 0.02 K/mm3 (0.00-0.23); BASOPHILS PERCENT AUTO 0 % (0-2); EOSINOPHILS ABSOLUTE AUTO 0.09 K/mm3 (0.00-0.68); EOSINOPHILS PERCENT AUTO 1 % (0-6); Hematocrit 40.2 % (33.0-51.0); Hemoglobin 12.8 g/dL (11.5-16.0); IMMATURE GRAN ABSOLUTE AUTO 0.01 K/mm3 (0.00-0.10); IMMATURE GRAN PERCENT AUTO 0 % (0-1); LYMPHOCYTES ABSOLUTE AUTO 1.02 K/mm3 (0.84-5.20); LYMPHOCYTES PERCENT AUTO 12 % (21-46); MONOCYTES ABSOLUTE AUTO 0.46 K/mm3 (0.16-1.47); MONOCYTES PERCENT AUTO 5 % (4-13); Mean Corpuscular HGB Conc 31.8 g/dL (31.5-36.5); Mean Corpuscular Volume 89 fL (80-100); NEUTROPHILS ABSOLUTE AUTO 7.28 K/mm3 (1.96-9.15); NEUTROPHILS PERCENT AUTO 82 % (41-73); NRBC ABSOLUTE 0.00 K/mm3 (0.00-0.02); NRBC Auto 0.0 /100 WBC (0.0-0.2); Platelet Count 233 K/mm3 (150-400); RDW Coefficient Variation 18.6 % (11.7-14.2); RDW Standard Deviation 60.8 fL (35.1-46.3)
[2025-05-11] MEDS ORDERED: Prochlorperazine Edisylate 10 mg Vial IV ONE (17:25)
[2025-05-11] MEDS ORDERED: HYDROmorphone HCl/Pf 1MG SYR IV ONE (17:25)
[2025-05-11] MEDS ORDERED: Pantoprazole Sodium 40 MG Injection IV ONE (17:30)
[2025-05-11 17:31] LABS: Source, Urine Clean Catch
[2025-05-11 17:45] LABS: Bilirubin, Urine Neg (Neg); Glucose Qualitative, Urine Neg (Neg); Ketones, Urine 2+ (Neg); Leukocyte Esterase, Urine Neg (Neg); Protein, Urine 2+ (Neg); Specific Gravity, Urine 1.015 (1.003-1.022); Urobilinogen, Urine NORM (Normal)
[2025-05-11 17:59] LABS: Color, Urine Pale Yellow (P-Yellow)
[2025-05-11 18:01] LABS: Red Blood Cells, Urine 0-2 /hpf (0-2); White Blood Cells, Urine Not Seen /hpf (0-5)
[2025-05-11] MEDS ORDERED: Mag Sulfate 1 GM/D5% 100ML 100 ML IV ONE (18:45)
[2025-05-11] MEDS ORDERED: Albuterol 2.5 MG/3 ML VIAL INH PRN (19:00)
[2025-05-11] MEDS ORDERED: HYDROmorphone HCl/Pf 1MG SYR IV PRN (19:00)
[2025-05-11] MEDS ORDERED: Prochlorperazine Edisylate 10 mg Vial IV PRN (19:05)
[2025-05-11] MEDS ORDERED: Metoclopramide HCl 5MG / ML 2ML Vial IV PRN (19:05)
[2025-05-11] MEDS ORDERED: Magnesium Sulf 2 GM/Water 50ML 50 ML IV STA (19:11)
[2025-05-11] MEDS ORDERED: Formoterol/Mometasone MDI 5/200 mcg 13 GM INH SCH (19:25)
[2025-05-11 20:56] VITALS: BP 173/102
[2025-05-11] MEDS ORDERED: Diazepam 5 MG / ML 2ML SYR IV PRN (22:20)
[2025-05-12] MEDS ORDERED: HYDROmorphone HCl/Pf 1MG SYR IV PRN (01:10)
[2025-05-12 01:11] VITALS: BP 144/94
[2025-05-12 04:46] VITALS: BP 123/83
[2025-05-12 05:36] LABS: Anion Gap 5.0 mmol/L (3-11); Blood Urea Nitrogen 4.0 mg/dL (8-24); CO2, Blood 28.0 mmol/L (21-32); Calcium, Blood 8.2 mg/dL (8.5-10.1); Chloride, Blood 109.0 mmol/L (98-108); Creatinine, Blood 0.78 mg/dL (0.40-1.00); Glucose, Blood 118.0 mg/dL (70-99); Magnesium, Blood 2.7 mg/dL (1.6-2.4); Potassium, Blood 4.2 mmol/L (3.5-5.5); Sodium, Blood 138.0 mmol/L (136-145)
--- NOTE | 2025-05-12 06:24 | NUR ---
SUMMARY READMIT FROM ER DUE TO PERSISTENT VOMITING / GASTROPARESIS. A&O X4. IND & SKIN INTACT. APPEARS IN SEVERE DISTRESS CONSISTENTLY ASKING FOR PAIN & NAUSEA MEDS. STARTED ON IV FLUIDS , CONTINUED MAGNESIUM IV CORRECTION. MAINTAINED CL DIET. PT REFUSES TABLETS FREQUENTLY SHE JUST PUKES IT OUT EVERYTIME. SHE REQ TO INC DILAUDID TO 2MG Q4 PRN SHE REMEMBERS IT FROM HER PREV ADM HERE. UNRELIEVED FROM CURRENT CONDITION.
[2025-05-12 07:39] VITALS: BP 139/82
[2025-05-12] MEDS ORDERED: Enoxaparin 40 MG/0.4 ML SYR SC SCH (09:00)
[2025-05-12] MEDS ORDERED: Pantoprazole Sodium 40 MG Injection IV SCH (09:00)
[2025-05-12 16:19] VITALS: BP 116/79
--- NOTE | 2025-05-12 17:16 | NUR ---
PT CONTINUES TO C/O NAUSEOUS AND REQUESTING MEDICATIONS. ALSO PAIN MANAGED WTIH AVAIL MEDS. PT DID AMBULATE TO BATHROOM THIS AFTERNOON WITH MY ASSISTANCE. DID WELL. MEDIPORT ACCESSED AND RUNNING. PT DID EAT A LITTLE OF THE CLEAR LIQUID LUNCH. NO OTHER CONCERNS NOTED. BED IN LOW POSITION, CALL LITE IN REACH, CALLS APPROP
[2025-05-12 19:52] VITALS: BP 138/98
--- NOTE | 2025-05-13 07:06 | NUR ---
SUMMARY NO IMPROVEMENT ON CHRONIC PAIN AND NAUSEA SINCE YESTERDAY. CONTINUED THE SAME TX REGIMEN. ABLE TO SLEEP WELL BUT FOR SHORT PERIODS THEN WAKES UP IN DISTRESS THEREBY REQUIRING PRN MEDS W/ CONSISTENT INTERVALS. HAS NEWLY DEVELOPED PAIN ON R LATERAL RIB. AUSCULTATED AND HAS CLEAR BREATH SOUNDS, EDUCATED PT OF POSSIBLE REFERRED PAIN AND FOR FURTHER OBSERVATION.
--- NOTE | 2025-05-13 08:00 | NUR ---
PT A/O X3, PLEASANT COOP. STATES PAIN IN ABD, SOME WORSE ON RT SIDE LAST NIGHT. VOMITING OCCATIONALLY. STATES OFF AND ON ALL TIMES. REGULARLY C/O PAIN. H/R REG, NO MURMUR NOTED. NO EDEMA. LUNGS CLEAR, RESP EASY, UNLABORED. ON R.A. BT X4 LAST BM YEST PER PT. VOIDS INDEPENDDANT TO BATHROOM. NO OTHER CONCERNS NOTED. BED IN LOW POSITION, CALL LITE IN REACH, CALLS APPROP
[2025-05-13 08:30] VITALS: BP 119/73
[2025-05-13] MEDS ORDERED: Ketorolac Tromethamine 15mg Vial IV PRN (11:50)
[2025-05-13 17:28] VITALS: BP 151/86
--- NOTE | 2025-05-13 19:31 | NUR ---
PT PLEASANT TODAY. PT COUNTENANCE LOOKS IMPROVED THIS AFTERNOON. PT AGREED STATING FEELS SOME BETTER. STILL NOT KEEPING FOOD DOWN. CONTINUES TO REQUEST PAIN AND NAUSEA MEDS T/O DAY. MED PER EMAR. DOES AMBULATE TO BATHROOM INDEPENDANTLY. NO OTHER NEW CONCERNS NOTED. BED IN LOW POSITION, CALL LITE IN REACH, CALLS APPROP
[2025-05-13 20:17] VITALS: BP 136/83
[2025-05-14 04:39] VITALS: BP 111/76
[2025-05-14 05:41] LABS: Anion Gap 5.0 mmol/L (3-11); Blood Urea Nitrogen 2.0 mg/dL (8-24); CO2, Blood 30.0 mmol/L (21-32); Calcium, Blood 7.9 mg/dL (8.5-10.1); Chloride, Blood 108.0 mmol/L (98-108); Creatinine, Blood 0.83 mg/dL (0.40-1.00); Glucose, Blood 92.0 mg/dL (70-99); Potassium, Blood 3.4 mmol/L (3.5-5.5); Sodium, Blood 140.0 mmol/L (136-145)
--- NOTE | 2025-05-14 06:41 | NUR ---
SUMMARY ALERT & ORIENTED. AMBULATORY & SELF-CARING. STILL REQUESTING FOR PAIN , NAUSEA AND ANXIETY IV MEDS FREQUENTLY. ABLE TO RESULT WELL. NAUSEA HAS RESOLVED IN THIS SHIFT HAVING NO VOMITING INCIDENT EVENTUALLY. THOUGH NIGHT MEDS NOT GIVEN PT NOT COMFORTABLE TAKING IT BUT REQUESTED FOR CHICKEN NOODLE SOUP AND SEEMS TOLERATED.
[2025-05-14 08:24] VITALS: BP 134/95
[2025-05-14] MEDS ORDERED: Ketorolac Tromethamine 15mg Vial IV PRN (12:45)
--- NOTE | 2025-05-14 13:10 | NUR ---
NOTE DR. DUNLAP ORDERED ADVANCED DIET TOLERATED. PT REPORTED LAST NIGHT HAVING FULL LIQUID FOR DINNER. PT REPORTS THIS AM, NO VOMMITING SINCE YEST. PT REPORTS BM TODAY. PT REPORTS WANTING TO TRY ORAL MEDS THIS AM. THIS RN GAVE ORAL MEDS. PT REPORTS "TOLERATING MEDS." PT REF BREAKFAST STATED "WASN'T FEELING IT." PT HAVING FULL LIQUID FOR LUNCH AND REPORTS WANTING TO TRY REG TEXTURE TONIGHT FOR DINNER.
[2025-05-14 17:14] VITALS: BP 143/99
--- NOTE | 2025-05-14 19:30 | NUR ---
SHIFT SUMMARY PT&OX4. PT ADMITTED DUE TO NON DIABETIC GASTROPORESIS. PT REPORTS NO CHEST PAIN/SOB. PT REPORTS ABD PAIN. PAIN MANAGED PER EMAR. PT HAS LR RUNNING AT 125ML/HR. PALLIATIVE CARE CONSULTED DUE TO READMISSIONS AND SUPPORTIVE CARE. VSS. PT REPORTS NAUSEA BUT NO VOMITTING, PT TOLERATING REGULAR DIET. DIETITION INVOLVED IN CARE. PT INDEPENDENT IN ROOM. PT IN BED, BED IN LOWEST POSITION, CALL LIGHT IN REACH. PT CALLS APPROPRIATE.
[2025-05-14 21:07] VITALS: BP 134/79
[2025-05-15 06:16] VITALS: BP 116/68
--- NOTE | 2025-05-15 07:26 | NUR ---
SUMMARY PLANNED TO GO HOME AT NIGHT BUT THEN OPTED [facility] ITS LATE. STILL REQUESTING NAUSEA & PAIN MEDS VERY FREQUENTLY. ABLE TO TOLERATE REG DIET WITH NO VOMIT EPISODE FOR THE LAST 24 HRS.
[2025-05-15 07:42] VITALS: BP 144/94
--- NOTE | 2025-05-15 11:33 | NUR ---
NOTE PT TIME FOR IV FLUIDS. PULLED FLUIDS FROM PYXIS. PUT IN DISCHARGE ORDERS, RETURNED FLUIDS.
--- NOTE | 2025-05-15 14:01 | NUR ---
DISCHARGE NOTE PT A&OX4. PT ADMITTED DUE TO NON DIABETIC GASTROPORESIS. PT REPORTS NO CHEST PAIN/SOB. PT REPORTS ABD PAIN. PAIN MANAGED PER EAMR. PT HAD LR RUNNING AT 125ML/HR. PALLIATIVE CARE CAME TO SEE PT. VSS. PT REPORTS NAUSEA BUT AT BASELINE AND NO VOMITTING, PT TOLERATED BREAKFAST. PT INDEPENDENT IN ROOM. PT CALLS APPROPRIATE. FABI LEONARD ORDERED DISCHARGED. MEDIPORT HEPARIN FLUSHED AND DEACCESSED. NO NEW MEDS ORDERED. WENT OVER DISCHARGE INSTRUCTIONS. PT REPORTS "WILL FOLLOW UP WITH PCP AND GI." THIS RN ESCORTED PT TO PT ENTERANCE, PT TOOK ALL BELONGINGS.
--- NOTE | 2025-05-15 17:41 | NUR ---
PALLIATIVE CARE VISIT: LATE ENTRY 05/14/25 1900 MET WITH PT TO DISCUSS GOALS OF CARE. CONCERNS BROUGHT FORTH FROM PRIMARY RN THAT PT HAD STATED HER PCP TOLD HER SHE DID NOT HAVE LONG TO LIVE. REVIEWED MEDICAL CHART, SPOKE TO PRIMARY RN, CROW PRIOR TO VISIT. MET WITH PT IN HER ROOM. PT ABLE AND AGREEABLE TO HAVE GOC CONVERSATION. CLARIFIED WHAT HER PCP HAD TOLD HER ABOUT HER PROGNOSIS. PER PT PROVIDER MADE COMMENT "YOU ARE LIKE A PLANE AND IT IS GOING TO LAND SOON". PT DENIES INTERPRETING THIS SHE IS GOING TO SOON, HOWEVER SHE BECOMES TEARFUL ABOUT THE CONVERSATION SHE HAD WITH HER PROVIDER STATES, SHE KNOWS THERE IS NOT MUCH ELSE SHE CAN DO FOR HER ILLNESS. 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 PT REPORTED SHE HAD GOOD CONTROL OF GASTROPARESIS SYMPTOMS WHEN SHE WAS ON HOME HEALTH SERVICES AND HAD WEEKLY IV INFUSIONS OF LR. THE AGENCY PROVIDING THE SERVICES SHUT DOWN HOWEVER; AND NOW SHE HAS FREQUENT VISITS TO THE HOSPITAL AND THIS HAS CAUSED A DECREASE IN HER QUALITY OF LIFE. PT EXPLAINS IT AFFECTS HER AND HER FAMILY AND SHE WORRIES ABOUT HOW IT AFFECTS THEM. PT REQUESTS IF THERE ARE ANY OUTSIDE SERVICES AVAILABLE. DISCUSSED OPTION OF COMING TO [facility] FOR OUTPATIENT IV THERAPY. PT STATES SHE CANNOT DRIVE, HER FAMILY WORKS ALL WEEK AND CANNOT GET HER TO APPOINTMENTS. PT REQUESTS PALLIATIVE CARE REFERRAL. DISCUSSED SERVICES MAY BE AVAILABLE THROUGH [place] [employer], DEPENDING ON INSURANCE COVERAGE. PT REQUESTS REFERRAL TO BE SENT. LEFT PT A FLYER. WILL SEND REFERRAL VIA FAX. PT DOES NOT QUALIFY FOR HOSPICE SERVICES. PT HAS MAINTAINED WEIGHT THROUGH THE YEAR WITH CURRENT WEIGHT AT 181 LBS. PT HAS EXHIBITED WEIGHT LOSS THROUGH THE YEAR FROM PRIOR VISITS BUT HAS BEEN ABLE TO GAIN BACK HER WEIGHT. ALBUMIN LEVEL IS 3.4 CURRENTLY. PT HAS NO QUALIFYING DIAGNOSIS.
== END 2025-05-15 13:01 | disposition home or self-care (01) | DRG 392 ==
LOC: ER 13:43 → MEDS 13:44 → ERHOLD 13:44 → MEDS 13:45 → ENPENDDIS 05-15 11:33 → MEDS 05-15 13:01
PROVIDERS: Emergency Medicine; Internal Medicine; Nurse Practitioner Acute Care; ADMIT Student in an Organized Health Care Education/Training Program
DX: K31.84 Gastroparesis (principal); J45.909 Unspecified asthma, uncomplicated; K58.9 Irritable bowel syndrome, unspecified; F12.90 Cannabis use, unspecified, uncomplicated; E28.2 Polycystic ovarian syndrome; K21.9 Gastro-esophageal reflux disease without esophagitis; F41.9 Anxiety disorder, unspecified; G89.29 Other chronic pain; D64.9 Anemia, unspecified; Z90.710 Acquired absence of both cervix and uterus; Z90.49 Acquired absence of other specified parts of digestive tract; Z79.899 Other long term (current) drug therapy; Z87.891 Personal history of nicotine dependence; Z87.442 Personal history of urinary calculi; Z91.040 Latex allergy status; Z88.0 Allergy status to penicillin; Z88.2 Allergy status to sulfonamides; Z88.5 Allergy status to narcotic agent; Z88.8 Allergy status to other drugs, medicaments and biological substances
CPT/HCPCS: 36415; 71045; 80048; 80053; 81001; 81025; 83690; 83735; 85025; 93005; 93010; 94640; 94664; 94760; 96361; 96374; 96375; 96376; 99285-25; A9270; G0378; J0780; J1100; J1171; J1200; J1642; J1885; J2470; J2765; J3360; J3475; J7030; J7120

== ENCOUNTER 2025-05-17 15:08 | Inpatient (IN) | payer OTHER ==
[~2025-05-17] VITALS: Ht 170.2 cm; Wt 80.4 kg
[2025-05-17] MEDS ORDERED: Metoclopramide HCl 5MG / ML 2ML Vial IV ONE (16:30)
[2025-05-17] MEDS ORDERED: DiphenhydrAMINE HCl 50 MG/ML 1ML Vial IV ONE (16:30)
[2025-05-17 17:11] LABS: Alanine Aminotransfer (ALT/SGP 47.0 U/L (12-78); Albumin, Blood 3.4 g/dL (3.4-5.0); Albumin/Globulin Ratio 1.0 (0.8-1.8); Anion Gap 7.0 mmol/L (3-11); Aspartate Aminotrans (AST/SGOT 36.0 U/L (12-37); Bilirubin, Total 0.9 mg/dL (0.1-1.0); Blood Urea Nitrogen 6.0 mg/dL (8-24); CO2, Blood 21.0 mmol/L (21-32); Calcium, Blood 8.2 mg/dL (8.5-10.1); Chloride, Blood 110.0 mmol/L (98-108); Creatinine, Blood 0.71 mg/dL (0.40-1.00); Globulin, Blood 3.4 g/dL (2.2-4.0); Glucose, Blood 136.0 mg/dL (70-99); Potassium, Blood 5.0 mmol/L (3.5-5.5); Sodium, Blood 133.0 mmol/L (136-145); Total Protein, Blood 6.8 g/dL (6.4-8.2)
[2025-05-17] MEDS ORDERED: Prochlorperazine Edisylate 10 mg Vial IV ONE (18:15)
[2025-05-17] MEDS ORDERED: HYDROmorphone HCl/Pf 1MG SYR IV ONE (18:15)
[2025-05-17 19:08] LABS: Source, Urine Clean Catch
[2025-05-17 19:14] LABS: Bilirubin, Urine Neg (Neg); Color, Urine Yellow (P-Yellow); Glucose Qualitative, Urine Neg (Neg); Ketones, Urine 3+ (Neg); Leukocyte Esterase, Urine Neg (Neg); Protein, Urine 1+ (Neg); Specific Gravity, Urine 1.010 (1.003-1.022); Urobilinogen, Urine NORM (Normal)
[2025-05-17 19:35] LABS: Yeast/Fungi Urine Rare /hpf
[2025-05-17 19:41] LABS: BASOPHILS ABSOLUTE AUTO 0.02 K/mm3 (0.00-0.23); BASOPHILS PERCENT AUTO 0 % (0-2); EOSINOPHILS ABSOLUTE AUTO 0.00 K/mm3 (0.00-0.68); EOSINOPHILS PERCENT AUTO 0 % (0-6); Hematocrit 39.1 % (33.0-51.0); Hemoglobin 12.8 g/dL (11.5-16.0); IMMATURE GRAN ABSOLUTE AUTO 0.03 K/mm3 (0.00-0.10); IMMATURE GRAN PERCENT AUTO 0 % (0-1); LYMPHOCYTES ABSOLUTE AUTO 0.73 K/mm3 (0.84-5.20); LYMPHOCYTES PERCENT AUTO 7 % (21-46); MONOCYTES ABSOLUTE AUTO 0.26 K/mm3 (0.16-1.47); MONOCYTES PERCENT AUTO 3 % (4-13); Mean Corpuscular HGB Conc 32.7 g/dL (31.5-36.5); Mean Corpuscular Volume 88 fL (80-100); NEUTROPHILS ABSOLUTE AUTO 9.32 K/mm3 (1.96-9.15); NEUTROPHILS PERCENT AUTO 90 % (41-73); NRBC ABSOLUTE 0.00 K/mm3 (0.00-0.02); NRBC Auto 0.0 /100 WBC (0.0-0.2); Platelet Count 213 K/mm3 (150-400); RDW Coefficient Variation 17.2 % (11.7-14.2); RDW Standard Deviation 56.2 fL (35.1-46.3)
[2025-05-17] MEDS ORDERED: Haloperidol Lactate Inj. 5 MG/ML Injection IV ONE ×2 (19:45→21:00)
[2025-05-17] MEDS ORDERED: FentaNYL Citrate 50 MCG/ML 2 ML Injection IV PRN (22:50)
[2025-05-17] MEDS ORDERED: Metoclopramide HCl 5MG / ML 2ML Vial IV PRN (22:55)
[2025-05-17] MEDS ORDERED: Ondansetron HCl 2 MG / ML 2ML Vial IV PRN (22:55)
[2025-05-17] MEDS ORDERED: NS 1,000 ML IV SCH (22:55)
[2025-05-17] MEDS ORDERED: Enoxaparin 40 MG/0.4 ML SYR SC SCH (23:00)
[2025-05-17] MEDS ORDERED: NS 1,000 ML IV ONE (23:27)
[2025-05-18] MEDS ORDERED: PROC5 PO (00:05)
[2025-05-18] MEDS ORDERED: Prochlorperazine Edisylate 10 mg Vial IV ONE (01:40)
--- NOTE | 2025-05-18 02:45 | NUR ---
ARRIVAL NOTE PT ARRIVED FROM ED AT APPROX 0230 TODAY RELATED TO GASTROPARESIS WITH PAIN AND N/V. PT A/OX4 WITH ELEVATED BP. DENIES CHEST PAIN, SOB, N/T. ABLE TO TRANSFER TO BED WITH MIN SBA ASSISTANCE R/T TO PAIN. PT RATES PAIN 8/10 AND ACTIVELY VOMITING UPON ARRIVAL. CHARGE TO CALL FOR MEDICATION ORDERS. AWAITING TELE. ORIENTATION TO ROOM PROVIDED. PT IS NPO. HAS CALL LIGHT IN REACH AND ABLE TO MAKE NEEDS KNOWN. REFUSES SCDS. IVF INFUSING TO PORT (RIGHT UPPER CHEST) ORDERED. AWAITING ORDERS AND WILL MEDICATE DIRECTED FOR PAIN AND N/V.
[2025-05-18 02:52] VITALS: BP 176/102
[2025-05-18] MEDS ORDERED: HYDROmorphone HCl/Pf 1MG SYR IV ONE (03:10)
[2025-05-18] MEDS ORDERED: FentaNYL Citrate 50 MCG/ML 2 ML Injection IV PRN (03:50)
--- NOTE | 2025-05-18 04:38 | NUR ---
UPDATE PT APPEARS TO BE RESTING COMFORTABLY 1 HOUR POST 1MG IV DILAUDID AND PHENERGAN SUPP. RESP EVEN/UNLABORED, EYES CLOSED. TELE AND CONT BIOX IN PLACE. SP02 AT 95% ON 2L NC. HR NSR AT 68 BPM. HAS CALL LIGHT IN REACH.
--- NOTE | 2025-05-18 05:14 | NUR ---
UPDATE HOSPITALIST ROUNDING ON PATIENT. NEW ORDERS FOR PAIN MANAGEMENT OBTAINED, SEE EMAR.
[2025-05-18] MEDS ORDERED: HYDROmorphone HCl/Pf 1MG SYR IV PRN ×2 (05:15→08:53)
--- NOTE | 2025-05-18 05:15 | NUR ---
SHIFT SUMMARY PAIN AND N/V NOW MANAGED PER EMAR. IVF INFUSING PER ORDER. HR NSR 70'S BPM PER LEARNING AND DEVELOPMENT INTERN. CONT BIOX IN PLACE, SPO2 AT 95% ON 2L NC, RESP EVEN/UNLABORED. PT IS NPO. NS IVF INFUSING PER ORDERS. NEW CHANGE TO PAIN MANAGEMENT, SEE EMAR. IS VOIDING, BM SINCE ADMIT. PT CURRENTLY RESTING IN BED WITH CALL LIGHT IN REACH. WILL GIVE REPORT TO ONCOMING RN.
[2025-05-18 05:31] LABS: BASOPHILS ABSOLUTE AUTO 0.01 K/mm3 (0.00-0.23); BASOPHILS PERCENT AUTO 0 % (0-2); EOSINOPHILS ABSOLUTE AUTO 0.05 K/mm3 (0.00-0.68); EOSINOPHILS PERCENT AUTO 0 % (0-6); Hematocrit 40.4 % (33.0-51.0); Hemoglobin 13.2 g/dL (11.5-16.0); IMMATURE GRAN ABSOLUTE AUTO 0.04 K/mm3 (0.00-0.10); IMMATURE GRAN PERCENT AUTO 0 % (0-1); LYMPHOCYTES ABSOLUTE AUTO 1.85 K/mm3 (0.84-5.20); LYMPHOCYTES PERCENT AUTO 16 % (21-46); MONOCYTES ABSOLUTE AUTO 0.68 K/mm3 (0.16-1.47); MONOCYTES PERCENT AUTO 6 % (4-13); Mean Corpuscular HGB Conc 32.7 g/dL (31.5-36.5); Mean Corpuscular Volume 89 fL (80-100); NEUTROPHILS ABSOLUTE AUTO 8.71 K/mm3 (1.96-9.15); NEUTROPHILS PERCENT AUTO 77 % (41-73); NRBC ABSOLUTE 0.00 K/mm3 (0.00-0.02); NRBC Auto 0.0 /100 WBC (0.0-0.2); Platelet Count 225 K/mm3 (150-400); RDW Coefficient Variation 17.3 % (11.7-14.2); RDW Standard Deviation 56.4 fL (35.1-46.3)
[2025-05-18 05:55] LABS: Alanine Aminotransfer (ALT/SGP 38.0 U/L (12-78); Albumin, Blood 3.7 g/dL (3.4-5.0); Albumin/Globulin Ratio 1.1 (0.8-1.8); Anion Gap 9.0 mmol/L (3-11); Aspartate Aminotrans (AST/SGOT 14.0 U/L (12-37); Bilirubin, Total 0.8 mg/dL (0.1-1.0); Blood Urea Nitrogen 4.0 mg/dL (8-24); CO2, Blood 25.0 mmol/L (21-32); Calcium, Blood 8.7 mg/dL (8.5-10.1); Chloride, Blood 105.0 mmol/L (98-108); Creatinine, Blood 0.86 mg/dL (0.40-1.00); Globulin, Blood 3.5 g/dL (2.2-4.0); Glucose, Blood 120.0 mg/dL (70-99); Potassium, Blood 3.4 mmol/L (3.5-5.5); Sodium, Blood 136.0 mmol/L (136-145); Total Protein, Blood 7.2 g/dL (6.4-8.2)
[2025-05-18] MEDS ORDERED: Pantoprazole Sodium 40 MG Injection IV SCH (06:00)
[2025-05-18 07:24] VITALS: BP 121/81
[2025-05-18 10:58] VITALS: BP 170/95
[2025-05-18] MEDS ORDERED: Ondansetron HCl 2 MG / ML 2ML Vial IV SCH (12:00)
--- NOTE | 2025-05-18 15:08 | NUR ---
ROUNDED ON PT. PT LAYING IN PRONE POSITIONIN BED SLEEPING COMFORTABLY. CALL LIGHT LAYING NEXT TO PT. PT ON RA WHILE SLEEPING, NO LABORED BREATHING NOTED.
[2025-05-18 15:18] VITALS: BP 136/70
--- NOTE | 2025-05-18 16:00 | NUR ---
PT REQUESTED WATER. WATER PROVIDED PER VERBAL ORDER TO ADVANCE DIET TOLERATED. PT TOLERATED WATER AT THIS TIME.
[2025-05-18] MEDS ORDERED: NS 250 ML IV PRN (16:45)
--- NOTE | 2025-05-18 18:03 | NUR ---
SHIFT SUMMARY PT A/OX 4 AND COOPERATIVE OF CARE. PT ABLE TO EXPRESS NEEDS AND CALLS APPROPIATE. PT INDEPENDENT IN BED AND IN ROOM, TOLERATES WELL. PT HAD PERIOD OF ELEVATED BP RELATED TO PAIN FLARE UP, PER PT. VSS THROUGHOUT SHIFT OTHERWISE. NO REPORT OF CHEST PAIN/PRESSURE THROUGHOUT SHIFT. NO REPORT OF SOB/DYSPNEA THROUGHOUT SHIFT. PT REPORTED ABD PAIN AND NAUSEA THAT WAS CONSTANT THROUGHOUT SHIFT, TREATED PER EMAR AND UNITERUPTED REST. PT PAIN MED FREQUENCY AND NAUSEA MED FREQUENCY CHANGED PER MD. PT ABLE TO REST MOST OF SHIFT AFTER RECIEVING BED BATH.
[2025-05-18 19:18] VITALS: BP 133/95
--- NOTE | 2025-05-18 23:28 | NUR ---
REPORT GIVEN TO CIRA YOST ON MEDICAL FLOOR.
[2025-05-19 00:45] VITALS: BP 136/94
--- NOTE | 2025-05-19 05:57 | NUR ---
Shift Summary Pt transferred to this unit from PCU. Medicated for constant pain/nausea per EMAR, pt states pain is managed well enough at 6/10. She is AOx4, indepenent in the room. On cont. O2 monitor and 1.5L/min O2 while asleep. No desaturation events. Pt did throw up one time around 0100, a clear yellow emesis. She had some clear liquids 4 hours prior.
[2025-05-19 08:35] VITALS: BP 134/79
[2025-05-19 09:21] LABS: Albumin, Blood 3.5 g/dL (3.4-5.0); Anion Gap 6 mmol/L (3-11); Blood Urea Nitrogen 3 mg/dL (8-24); CO2, Blood 30 mmol/L (21-32); Calcium, Blood 8.4 mg/dL (8.5-10.1); Chloride, Blood 103 mmol/L (98-108); Creatinine, Blood 1.06 mg/dL (0.40-1.00); Glucose, Blood 85 mg/dL (70-99); Phosphorus, Blood 2.8 mg/dL (2.5-4.9); Potassium, Blood 3.9 mmol/L (3.5-5.5); Sodium, Blood 135 mmol/L (136-145)
[2025-05-19] MEDS ORDERED: Prochlorperazine Edisylate 10 mg Vial IV PRN (12:25)
[2025-05-19] MEDS ORDERED: HYDROmorphone HCl/Pf 1MG SYR IV PRN (12:25)
[2025-05-19 15:53] VITALS: BP 135/96
[2025-05-19] MEDS ORDERED: HYDROmorphone HCl/Pf 1MG SYR IV ONE (16:50)
--- NOTE | 2025-05-19 18:44 | NUR ---
SHIFT SUMMARY PT A&OX4, VSS, RA, SR IN 60S ON TELE. PT C/O CONSTANT NAUSEA WITH SOME RELIEF WITH COMPAZINE AND REGLAN. PT C/O ABDOMINAL PAIN /, MANAGED WITH PRN DILAUDED. PT TOLERATED CLEAR LIQUID DIET. INDEPENDENT IN ROOM, CALL LIGHT IN REACH, PLEASANT AND COOPERATIVE WITH CARE.
[2025-05-19 20:57] VITALS: BP 152/97
[2025-05-20 00:24] VITALS: BP 132/82
[2025-05-20 05:09] LABS: Hematocrit 41.0 % (33.0-51.0); Hemoglobin 13.1 g/dL (11.5-16.0); Mean Corpuscular HGB Conc 32.0 g/dL (31.5-36.5); Mean Corpuscular Volume 90 fL (80-100); NRBC ABSOLUTE 0.00 K/mm3 (0.00-0.02); NRBC Auto 0.0 /100 WBC (0.0-0.2); Platelet Count 200 K/mm3 (150-400); RDW Coefficient Variation 16.3 % (11.7-14.2); RDW Standard Deviation 54.0 fL (35.1-46.3)
[2025-05-20 05:29] LABS: Albumin, Blood 3.5 g/dL (3.4-5.0); Anion Gap 8 mmol/L (3-11); Blood Urea Nitrogen 5 mg/dL (8-24); CO2, Blood 29 mmol/L (21-32); Calcium, Blood 8.6 mg/dL (8.5-10.1); Chloride, Blood 103 mmol/L (98-108); Creatinine, Blood 0.96 mg/dL (0.40-1.00); Glucose, Blood 84 mg/dL (70-99); Magnesium, Blood 1.9 mg/dL (1.6-2.4); Phosphorus, Blood 3.2 mg/dL (2.5-4.9); Potassium, Blood 3.5 mmol/L (3.5-5.5); Sodium, Blood 136 mmol/L (136-145)
[2025-05-20 07:33] LABS: Source, Urine Voided
--- NOTE | 2025-05-20 07:35 | NUR ---
SHIFT SUMMARY AT START OF SHIFT, PT LYING IN BED. GOT UP TO USE RESTROOM. APPROX 0430, PT STATED SHE WAS BEGINNING TO HAVE NEW FLANK PAIN AND SHARP, BURNING PAIN IN KIDNEYS. DR. VEGA AGREED TO HAVE UA ORDERED TO CHECK AND CULTURE. MEDICATED PRN FOR PAIN THROUGH THE NIGHTS WHENEVER IT BECAME AVAILABLE. UA COLLECTED AT 0725. PT IN GREAT PAIN. RELAYED TO DAY SHIFT NURSE.
[2025-05-20 07:38] LABS: Bilirubin, Urine Neg (Neg); Color, Urine Pale Yellow (P-Yellow); Glucose Qualitative, Urine Neg (Neg); Ketones, Urine 2+ (Neg); Leukocyte Esterase, Urine Neg (Neg); Protein, Urine Neg (Neg); Specific Gravity, Urine 1.015 (1.003-1.022); Urobilinogen, Urine NORM (Normal)
[2025-05-20 08:23] VITALS: BP 122/72
[2025-05-20 15:07] VITALS: BP 134/87
--- NOTE | 2025-05-20 17:40 | NUR ---
shift summary pt cont level of care. pt noted to be a&o x4 and ind in room. pt cont to struggle with n/v. pt was advanced to a full liquid but was not able to tolerate and was placed back on a clear liquid at this time. pt cont to stuggle with pain and has been medicated per emar.
[2025-05-20 20:33] VITALS: BP 139/82
[2025-05-20 23:55] VITALS: BP 139/100
[2025-05-21 04:56] VITALS: BP 139/94
--- NOTE | 2025-05-21 05:48 | NUR ---
SHIFT SUMMARY PATIENT IS ALERT AND ORIENTED. PATIENT HAS HAD NO ACUTE EVENTS THIS SHIFT. VITAL SIGNS REVIEWED. PATIENT HAS BEEN MEDICATED FOR PAIN, NAUSEA AND VOMITTING THIS SHIFT. PATIENT HAS HAD NO COMPLAINTS OF SOB. PAITNET HAS BEEN ON CLEAR LIQUIDS THIS SHIFT. BED IN LOCKED AND LOWEST POSITION. CALL LIGHT IN PLACE. BED IN LOCKED AND LOWEST POSITION.
[2025-05-21 07:32] VITALS: BP 140/81
[2025-05-21 16:02] VITALS: BP 161/95
--- NOTE | 2025-05-21 19:35 | NUR ---
SHIFT SUMMARY CLIENT AOX4. MEDICATION COMPLIANT. C/O OF NAUSEA AND PAIN THRUGHT SHIFT. MEDICATED PER EMAR WITH GOOD RESULTS. CLIENT REMAIN ON 1L OF OXYGEN, WITH SATS IN THE HIGH 90'S. CLIENT DESATED TO 90% WITH EXCERSION. TELE D/C'D. BED IS IN LOW POSITION AND CALLIGHT IS WITHIN REACH.
[2025-05-21 20:33] VITALS: BP 124/88
--- NOTE | 2025-05-22 04:03 | NUR ---
SHIFT SUMMARY PATIENT IS ALERT AND ORIENTED. PATIENT HAS HAD NO ACUTE EVENTS THIS SHIFT. VITAL SIGNS REVIEWED. PATIENT HAS COMPLAINED OF PAIN, NAUSEA THIS SHIFT. PATIENT HAS NO COMPLAINTS OF VOMITTING OR SOB THIS SHIFT. PATIENT HAS BEEN IND THIS SHIFT. BED IN LOCKED AND LOWEST POSITION. CALL LIGHT IN PLACE.
[2025-05-22 05:49] VITALS: BP 144/98
[2025-05-22 07:49] VITALS: BP 130/116
[2025-05-22 09:17] VITALS: BP 139/108
[2025-05-22 17:25] VITALS: BP 111/99
--- NOTE | 2025-05-22 18:04 | NUR ---
SHIFT SUMMARY NO ACUTE CHANGES, A/Ox4, ABLE TO MAKE NEEDS KNOWN AND USES CALL SYSTEM APPROPRIATELY. INDEPENDENT IN ROOM. TREATED FOR PAIN AND NAUSEA PER EMAR. PT TOLERATING REGULAR DIET BUT ONLY EATING SMALL PORTION OF EACH MEAL. PT DENIES ANY VOMITING OR BM. CHG BATH COMPLETED. NORMAL SALINE KVO FOR MEDIPORT ACCESS. PT CURRENTLY RESTING IN BED WITH BED IN LOWEST POSITION AND CALL LIGHT WITHIN REACH.
[2025-05-22 19:30] VITALS: BP 137/84
[2025-05-23 03:09] VITALS: BP 128/89
--- NOTE | 2025-05-23 06:24 | NUR ---
SHIFT SUMMARY PT IS ALERT AND ORIENTED TIMES 3, ADMITTED FOR GASTROPARESIS. PT IS ALERT AND ORIENTED TIMES 3-4. PT IS COOPERATIVE WITH CARE AND ABLE TO MAKE NEEDS KNOWN TO STAFF AND INDEPENDENT TO TOILET. PT REQUESTED PAIN CARE MANAGEMENT DILAUDID PO Q4 WITH COMPAZINE AND DILAUDID 1MG IV Q4 WITH REGLAN. PT APPEARED TO SLEEP ON AND OFF THROUGH THE NIGHT. BED IS IN LOW POSITION, CALL LIGHT IS WITHIN REACH, AND RAILS ARE TIMES 2.
[2025-05-23 08:04] VITALS: BP 132/93
--- NOTE | 2025-05-23 12:11 | NUR ---
DISCHARGE SUMMARY PT DISCHARGED HOME. NO NEW RX TO BE FAXED TO PHARMACY. INSTUCTED PT TO FOLLOW UP WITH PCP PER DISCHARGE INSTRUCTIONS. MEDIPORT DEACCESSED PER UNIT PROTOCOL. PT WHEELED DOWN BY ENGRAVING PRESS OPERATOR TO PRIVATE VEHICLE OPERATED BY SPOUSE. PT REPORTS HAVING ALL BELONGINGS.
== END 2025-05-23 12:10 | disposition home or self-care (01) | DRG 392 ==
LOC: ER 15:08 → MEDS 15:09 → SURS 15:09 → ERHOLD 15:09 → SURS 05-18 02:31 → MEDS 05-18 23:35
PROVIDERS: Internal Medicine; Physician Assistant; ADMIT Internal Medicine
DX: K31.84 Gastroparesis (principal); E87.1 Hypo-osmolality and hyponatremia; F41.9 Anxiety disorder, unspecified; D64.9 Anemia, unspecified; J45.909 Unspecified asthma, uncomplicated; K58.9 Irritable bowel syndrome, unspecified; E28.2 Polycystic ovarian syndrome; E86.0 Dehydration; G89.29 Other chronic pain; Z87.891 Personal history of nicotine dependence; Z79.51 Long term (current) use of inhaled steroids; Z79.891 Long term (current) use of opiate analgesic; Z88.2 Allergy status to sulfonamides; Z88.0 Allergy status to penicillin; Z91.040 Latex allergy status; Z88.5 Allergy status to narcotic agent; Z88.8 Allergy status to other drugs, medicaments and biological substances
CPT/HCPCS: 80053; 80069; 81001; 81003; 83690; 83735; 83880; 85025; 85027; 93005; 93010; 94762; 96361; 96365; 96366; 96374; 96375; 96376; 99285-25; A9270; G0378; J0780; J1171; J1200; J1630; J1642; J1650; J2405; J2470; J2765; J3010; J3480; J7030; J7050; J7120

== ENCOUNTER 2025-07-15 13:59 | Inpatient (IN) | payer OTHER ==
[~2025-07-15] VITALS: Ht 170.2 cm; Wt 78.1 kg
[2025-07-15] MEDS ORDERED: NS 1,000 ML IV SCH ×2 (14:05→14:20)
[2025-07-15] MEDS ORDERED: DiphenhydrAMINE HCl 50 MG/ML 1ML Vial IV ONE ×2 (14:20→16:05)
[2025-07-15 14:41] LABS: Source, Urine Clean Catch
[2025-07-15 14:47] LABS: BASOPHILS ABSOLUTE AUTO 0.04 K/mm3 (0.00-0.23); BASOPHILS PERCENT AUTO 0 % (0-2); EOSINOPHILS ABSOLUTE AUTO 0.50 K/mm3 (0.00-0.68); EOSINOPHILS PERCENT AUTO 5 % (0-6); Hematocrit 39.5 % (33.0-51.0); Hemoglobin 12.5 g/dL (11.5-16.0); IMMATURE GRAN ABSOLUTE AUTO 0.03 K/mm3 (0.00-0.10); IMMATURE GRAN PERCENT AUTO 0 % (0-1); LYMPHOCYTES ABSOLUTE AUTO 1.42 K/mm3 (0.84-5.20); LYMPHOCYTES PERCENT AUTO 13 % (21-46); MONOCYTES ABSOLUTE AUTO 0.40 K/mm3 (0.16-1.47); MONOCYTES PERCENT AUTO 4 % (4-13); Mean Corpuscular HGB Conc 31.6 g/dL (31.5-36.5); Mean Corpuscular Volume 93 fL (80-100); NEUTROPHILS ABSOLUTE AUTO 8.21 K/mm3 (1.96-9.15); NEUTROPHILS PERCENT AUTO 77 % (41-73); NRBC ABSOLUTE 0.00 K/mm3 (0.00-0.02); NRBC Auto 0.0 /100 WBC (0.0-0.2); Platelet Count 246 K/mm3 (150-400); RDW Coefficient Variation 13.8 % (11.7-14.2); RDW Standard Deviation 46.8 fL (35.1-46.3)
[2025-07-15 14:49] LABS: Bilirubin, Urine Neg (Neg); Glucose Qualitative, Urine Neg (Neg); Ketones, Urine 3+ (Neg); Leukocyte Esterase, Urine Neg (Neg); Protein, Urine 2+ (Neg); Specific Gravity, Urine 1.015 (1.003-1.022); Urobilinogen, Urine NORM (Normal)
[2025-07-15] MEDS ORDERED: HYDROmorphone HCl/Pf 1MG SYR IV ONE ×2 (14:55→17:35)
[2025-07-15 14:59] LABS: Color, Urine Yellow (P-Yellow)
[2025-07-15 15:00] LABS: Red Blood Cells, Urine 0-2 /hpf (0-2); White Blood Cells, Urine 0-2 /hpf (0-5)
[2025-07-15 15:07] LABS: Alanine Aminotransfer (ALT/SGP 16.0 U/L (12-78); Albumin, Blood 3.9 g/dL (3.4-5.0); Albumin/Globulin Ratio 1.2 (0.8-1.8); Anion Gap 12.0 mmol/L (3-11); Aspartate Aminotrans (AST/SGOT 13.0 U/L (12-37); Bilirubin, Total 0.7 mg/dL (0.1-1.0); Blood Urea Nitrogen 8.0 mg/dL (8-24); CO2, Blood 24.0 mmol/L (21-32); Calcium, Blood 9.0 mg/dL (8.5-10.1); Chloride, Blood 108.0 mmol/L (98-108); Creatinine, Blood 0.9 mg/dL (0.40-1.00); Globulin, Blood 3.3 g/dL (2.2-4.0); Glucose, Blood 197.0 mg/dL (70-99); Potassium, Blood 3.8 mmol/L (3.5-5.5); Sodium, Blood 140.0 mmol/L (136-145); Total Protein, Blood 7.2 g/dL (6.4-8.2)
[2025-07-15] MEDS ORDERED: Metoclopramide HCl 5MG / ML 2ML Vial IV ONE (16:05)
[2025-07-15] MEDS ORDERED: LORazepam 2 MG/ML 1ML Injection IV PRN (20:20)
[2025-07-15] MEDS ORDERED: HYDROmorphone HCl/Pf 1MG SYR IV PRN ×2 (20:20→21:00)
[2025-07-15] MEDS ORDERED: Ondansetron HCl 2 MG / ML 2ML Vial IV PRN (20:20)
[2025-07-15] MEDS ORDERED: Albuterol 2.5 MG/3 ML VIAL INH PRN (20:25)
[2025-07-15] MEDS ORDERED: Formoterol/Mometasone MDI 5/200 mcg 13 GM INH SCH (20:40)
[2025-07-15 20:54] LABS: U Amphetamine Screen Not Detected; U Barbituate Screen Not Detected; U Benzodiazapine Screen DETECTED; U Buprenorphine Screen Not Detected; U Cannabinoids Screen DETECTED; U Cocaine Screen Not Detected; U Methadone Screen Not Detected; U Methamphetamine Screen Not Detected; U Opiates Screen DETECTED; U Oxycodone Screen Not Detected; U Phencyclidine Screen Not Detected
[2025-07-15 21:38] VITALS: BP 165/110
[2025-07-15 23:34] LABS: pH Blood Venous 7.42 (7.34-7.37)
[2025-07-15 23:36] VITALS: BP 137/78
[2025-07-15 23:36] LABS: Hematocrit 38.4 % (33.0-51.0); Hemoglobin 12.2 g/dL (11.5-16.0)
[2025-07-16] MEDS ORDERED: Metoclopramide HCl 5MG / ML 2ML Vial IV SCH
--- NOTE | 2025-07-16 00:29 | NUR ---
TRANSFER NOTE: PT ARRIVED FROM ED 2129. SELF AMBULATE INTO BED. VERY NAUSEOUS AND WRETCHING. NO BOWEL SOUNDS ON AUSCULTATION. PT MEDICATED FOR PAIN AND NAUSEA PER EMR. PT ORIENTED TO ROOM AND CALL LIGHT. REFUSED SCDS. AOX4 CALLING APPROPRIATELY. CONTINUING CARE.
[2025-07-16 03:48] VITALS: BP 157/94
--- NOTE | 2025-07-16 05:02 | NUR ---
SHIFT SUMMARY: PT AOX4, CALLS APPROPRIATELY AND ABLE TO MAKE NEEDS KNOWN. IND IN THE ROOM. NPO, RINSING MOUTH DUE TO PERSISTANT VOIMITING. MEDICATED PER EMR TO COMBAT NAUSEA WITH SOME SUCCESS VIA ATIVAN. PT ENDORSING CONSTANT PAIN IN ABDOMINAL REGION. MEDICATED PER EMR. BOWEL SOUNDS ABSENT. PT APPEARS IN LESS DISTRESS THAN ARRIVAL BUT ENDORSES FEELING MISERABLE. VSS, DENIES CP OR SOB. PT TOLERATING MEDICATIONS WELL. IN BED RESTING, BED IN LOWEST POSITION, CALL LIGHT IN REACH. CONTINUING CARE.
[2025-07-16 06:10] LABS: BASOPHILS ABSOLUTE AUTO 0.04 K/mm3 (0.00-0.23); BASOPHILS PERCENT AUTO 0 % (0-2); EOSINOPHILS ABSOLUTE AUTO 0.10 K/mm3 (0.00-0.68); EOSINOPHILS PERCENT AUTO 1 % (0-6); Hematocrit 36.1 % (33.0-51.0); Hemoglobin 11.7 g/dL (11.5-16.0); IMMATURE GRAN ABSOLUTE AUTO 0.02 K/mm3 (0.00-0.10); IMMATURE GRAN PERCENT AUTO 0 % (0-1); LYMPHOCYTES ABSOLUTE AUTO 1.96 K/mm3 (0.84-5.20); LYMPHOCYTES PERCENT AUTO 18 % (21-46); MONOCYTES ABSOLUTE AUTO 0.67 K/mm3 (0.16-1.47); MONOCYTES PERCENT AUTO 6 % (4-13); Mean Corpuscular HGB Conc 32.4 g/dL (31.5-36.5); Mean Corpuscular Volume 93 fL (80-100); NEUTROPHILS ABSOLUTE AUTO 8.07 K/mm3 (1.96-9.15); NEUTROPHILS PERCENT AUTO 74 % (41-73); NRBC ABSOLUTE 0.00 K/mm3 (0.00-0.02); NRBC Auto 0.0 /100 WBC (0.0-0.2); Platelet Count 218 K/mm3 (150-400); RDW Coefficient Variation 13.8 % (11.7-14.2); RDW Standard Deviation 47.0 fL (35.1-46.3)
[2025-07-16 06:35] LABS: Anion Gap 9.0 mmol/L (3-11); Blood Urea Nitrogen 7.0 mg/dL (8-24); CO2, Blood 27.0 mmol/L (21-32); Calcium, Blood 8.6 mg/dL (8.5-10.1); Chloride, Blood 106.0 mmol/L (98-108); Creatinine, Blood 0.85 mg/dL (0.40-1.00); Glucose, Blood 105.0 mg/dL (70-99); Magnesium, Blood 1.8 mg/dL (1.6-2.4); Potassium, Blood 3.9 mmol/L (3.5-5.5); Sodium, Blood 138.0 mmol/L (136-145)
[2025-07-16 07:26] VITALS: BP 133/95
[2025-07-16] MEDS ORDERED: Enoxaparin 40 MG/0.4 ML SYR SC SCH (09:00)
[2025-07-16] MEDS ORDERED: Pantoprazole Sodium 40 MG Injection IV SCH (09:00)
[2025-07-16 15:33] VITALS: BP 121/79
--- NOTE | 2025-07-16 19:34 | NUR ---
SHIFT SUMMARY- PT ALERT AND ORIENTED, A BIT GROGGY FROM ALL THE MEDS. VERY FAINT AND INFREQUENT BT. SHE HAS VERY VIOLENT EPISODES OF EMESIS. DR CANO WAS CONSULTED, HE CAME TO SEE HER THIS EVENING AND IS PLANNING TO TAKE HER FOR UPPER SCOPE TOMORROW EVENING. PT WAS PLACED ON CLEAR LIQUIDS. THAT BECOMES WATER AND ICE CHIPS AT 2330 AND AT 1100 TOMORROW THE PT WILL BE NPO. PT ON TELE NSR IN THE 80'S. 20G IV INFUSING LR AT 125ML/HR. MEDIPORT WAS ACCESSED IN THE ER, NIGHT RN JESUS FROM IT FOR LABS, THEN IT WAS HEPARIN LOCKED. IV FLUSHES WELL. PT MEDICATED FOR PAIN AND NAUSEA JUST BEFORE SHIFT CHANGE. PT IN BED, CALL LIGHT IN REACH NO S&S OF DISTRESS NOTED AT THE TIME OF BEDSIDE REPORT.
[2025-07-16 20:22] VITALS: BP 145/76
[2025-07-17] VITALS (7 sets, daily range): BP systolic 141–164; BP diastolic 80–109
--- NOTE | 2025-07-17 06:34 | NUR ---
PT C/O PAIN AND NAUSEA T/O THIS SHIFT, GIVEN RX.
[2025-07-17] MEDS ORDERED: Prochlorperazine Edisylate 10 mg Vial IV PRN (10:45)
--- NOTE | 2025-07-17 15:37 | NUR ---
PT HAS 20G IV TO RIGHT FOREARM THAT FLUSHES WELL AND FLOWS TO GRAVITY. PT ALSO HAS POWERPORT TO RIGHT SIDE OF CHEST THAT SHE STATES SHE HAS HAD FOR 4 YEARS FOR IV HYDRATION AND MEDICATIONS AT HOME.
--- NOTE | 2025-07-17 15:43 | NUR ---
Pt brought from Medical Floor to Day Surgery for procedure with Dr. Crisostomo. History, Chart, Medications and Allergies reviewed before start of procedure. Patient confirms NPO status and agrees with scheduled surgery. Pre-Op teaching done. Pt verbalizes understanding. Pt belongings left in personal room on Medical Floor for safekeeping.
[2025-07-17] MEDS ORDERED: Ondansetron HCl 2 MG / ML 2ML Vial ONE (15:56)
[2025-07-17] MEDS ORDERED: Dexamethasone Sod Phos 10 MG/ML 1ML VIAL ONE (15:56)
[2025-07-17] MEDS ORDERED: Metoclopramide HCl 5MG / ML 2ML Vial ONE (15:57)
--- NOTE | 2025-07-17 16:03 | NUR ---
07/17/25 1602 Ophelia Valdovinos, SLIDE FASTENER REPAIRER; SEE ANESTHESIA RECORDS.
--- NOTE | 2025-07-17 16:36 | NUR ---
SHIFT SUMMARY PATIENT A&OX4. INDEPENDENT IN ROOM, ABLE TO MAKE NEEDS KNOWN, AND USING THE CALL LIGHT APPROPRIATELY. PATIENT PAINFUL AND MANAGED WITH Q2HR IV HYDROMORPHONE, NEEDED CONTINUOUSLY. ZOFRAN AND COMPAZINE FOR NAUSEA AND VOMITING. CONSISTENT N/V THROUGHOUT DAY. ENDO WITH DAY SURGERY TODAY. PATIENT BACK TO ROOM, CURRENTLY, IN ROOM VISITING. BED IN LOWEST POSITION, CALL LIGHT WITHIN REACH.
--- NOTE | 2025-07-17 18:15 | NUR ---
NO ACUTE CHANGES SINCE RN ASSUMED CARE AT 1600. TREATED FOR PAIN AND NAUSEA PER JAN. WILL REPORT TO ONCOMING NOC SHIFT RN.
[2025-07-18 00:46] VITALS: BP 152/95
--- NOTE | 2025-07-18 03:30 | NUR ---
SHIFT SUMMARY: AOX4. INDEPENDENT IN ROOM. PT IS COMPLAING OF SEVERE ABDOMINAL PAIN, NAUSEA, AND VOMITING. PT IS RECIEVING IV DILAUDID AROUND THE CLOCK ALONG WITH ANTIEMETICS. LR STILL RUNNING AT 125CC/HR. CALL LIGHT IS WITHIN REACH. BED IS LOW AND LOCKED.
[2025-07-18 05:05] VITALS: BP 162/95
[2025-07-18 11:31] VITALS: BP 163/90
[2025-07-18 13:57] LABS: Anion Gap 6.0 mmol/L (3-11); Blood Urea Nitrogen 4.0 mg/dL (8-24); CO2, Blood 30.0 mmol/L (21-32); Calcium, Blood 8.4 mg/dL (8.5-10.1); Chloride, Blood 104.0 mmol/L (98-108); Creatinine, Blood 0.98 mg/dL (0.40-1.00); Glucose, Blood 83.0 mg/dL (70-99); Potassium, Blood 3.2 mmol/L (3.5-5.5); Sodium, Blood 137.0 mmol/L (136-145)
[2025-07-18 14:51] VITALS: BP 152/89
--- NOTE | 2025-07-18 18:20 | NUR ---
End of shift summary: Patient is alert and oriented x4; pleasant and cooperative with care. Patient with increased c/o pain and nausea/vomiting today and medications administered per EMAR. Patient remains independent in room with BR privelege. Patient denies SOB, CP or pressure this shift. Patient with minimal oral intake; has LR at 125/hr running. Utilizing call light approrpriately; call light within reach and bed in lowest position. Will continue to monitor until next shift nurse arrives and report is given.
[2025-07-18 19:33] VITALS: BP 138/91
[2025-07-19 03:42] VITALS: BP 148/91
--- NOTE | 2025-07-19 07:20 | NUR ---
Shift Summary AOx4. Patient has been on the call light watching the clock for her pain meds and will ring the call escobar when it is close to the 2 hour narciso. At the start of shift, patient was upset about her dilaudid being 40 minutes late when she called for her dilaudid before it was even available. Patient's pain is always at a 9/10 and the dilaudid only helps a bit. She finally slept over 4 hours from 1207-8136 then woke up with the urge to urinate. After using the bathroom, patient called for her pain med and antiemetic for her 9/10 abdominal pain. Patient does not exhibit any facial grimacing, guarding, moaning, or tears. Patient also declines assistance to and from bathroom. Even with a 9/10 pain, she is able to unplug and plug her IV pole to take with her. No other concerns. No acute changes.
[2025-07-19 07:40] VITALS: BP 157/107
[2025-07-19 09:01] LABS: Anion Gap 7.0 mmol/L (3-11); Blood Urea Nitrogen 3.0 mg/dL (8-24); CO2, Blood 31.0 mmol/L (21-32); Calcium, Blood 7.8 mg/dL (8.5-10.1); Chloride, Blood 104.0 mmol/L (98-108); Creatinine, Blood 1.06 mg/dL (0.40-1.00); Glucose, Blood 76.0 mg/dL (70-99); Potassium, Blood 3.1 mmol/L (3.5-5.5); Sodium, Blood 139.0 mmol/L (136-145)
[2025-07-19 11:12] VITALS: BP 158/91
[2025-07-19 16:03] VITALS: BP 163/101
[2025-07-19] MEDS ORDERED: Potassium Chl 20MEQ/Water100ML 100 ML IV STA (16:46)
[2025-07-19 20:36] VITALS: BP 145/85
[2025-07-19 23:45] VITALS: BP 143/91
[2025-07-20 04:03] VITALS: BP 152/95
[2025-07-20 06:25] LABS: Anion Gap 7.0 mmol/L (3-11); Blood Urea Nitrogen 3.0 mg/dL (8-24); CO2, Blood 30.0 mmol/L (21-32); Calcium, Blood 8.2 mg/dL (8.5-10.1); Chloride, Blood 104.0 mmol/L (98-108); Creatinine, Blood 1.14 mg/dL (0.40-1.00); Glucose, Blood 79.0 mg/dL (70-99); Potassium, Blood 3.3 mmol/L (3.5-5.5); Sodium, Blood 138.0 mmol/L (136-145)
--- NOTE | 2025-07-20 06:28 | NUR ---
Shift Summary AOx3-4. Patient has been drowsy but still waking up to request pain meds. Explain that if patient is too sleepy and respiratory compromise becomes an issue or concern, I would not feel comfortable giving additional dilaudid until that concern is addressed. Patient claims she always breathes shallow and with low respirations to the point her has to come and aggressively wake her up to ask if she is still breathing. Either way, I explained further that it is the RN's judgement whether or not the med should be given and it will depend on the RN's clinical assessment of the situation. Also pointed out that just because a medication is available doesn't mean the RN should give it if giving the med will likely cause harm. Patient verbalized understanding. No emesis noted this shift. Patient has been sleeping more. Patient's skin appears more dull and undereyes are prominently darker and sunken which is different despite having lots of sleep tonight. LR still infusing at 125mLs/hr. Call light in reach.
[2025-07-20 07:19] VITALS: BP 164/86
[2025-07-20] MEDS ORDERED: Potassium Chl 20MEQ/Water100ML 100 ML IV STA (07:26)
[2025-07-20 11:39] VITALS: BP 172/91
[2025-07-20] MEDS ORDERED: POTA20LUD PO (11:56)
== END 2025-07-20 13:00 | disposition home or self-care (01) | DRG 391 ==
LOC: ER 13:59 → MEDS 20:16 → ENPENDDIS 07-20 11:55 → MEDS 07-20 13:00
PROVIDERS: Internal Medicine; Internal Medicine Gastroenterology; Nurse Practitioner Acute Care; Student in an Organized Health Care Education/Training Program; ADMIT Student in an Organized Health Care Education/Training Program
PROC: 0DJ08ZZ Inspection of Upper Intestinal Tract, Via Natural or Artificial Opening Endoscopic (ICD-10-PCS; principal; 2025-07-17 16:00)
DX: K31.84 Gastroparesis (principal); K22.11 Ulcer of esophagus with bleeding; F11.20 Opioid dependence, uncomplicated; J45.909 Unspecified asthma, uncomplicated; F12.90 Cannabis use, unspecified, uncomplicated; G89.29 Other chronic pain; R73.9 Hyperglycemia, unspecified; F41.9 Anxiety disorder, unspecified; I16.0 Hypertensive urgency; K21.9 Gastro-esophageal reflux disease without esophagitis; I10 Essential (primary) hypertension; M79.7 Fibromyalgia; Z91.148 Patient's other noncompliance with medication regimen for other reason; K44.9 Diaphragmatic hernia without obstruction or gangrene; Z90.710 Acquired absence of both cervix and uterus; Z87.442 Personal history of urinary calculi; Z90.49 Acquired absence of other specified parts of digestive tract; Z98.890 Other specified postprocedural states; Z87.891 Personal history of nicotine dependence; Z79.899 Other long term (current) drug therapy; Z88.0 Allergy status to penicillin; Z88.2 Allergy status to sulfonamides; Z88.5 Allergy status to narcotic agent; Z88.8 Allergy status to other drugs, medicaments and biological substances; Z91.040 Latex allergy status
CPT/HCPCS: 71045; 74177; 80048; 80053; 81001; 82803; 83690; 83735; 85014; 85018; 85025; 93005; 93010; 94640; 94664; 94760; 96361; 96374-59; 96375; 96376; 99285-25; A9270; J0780; J1100; J1171; J1200; J1642; J1790; J2060; J2405; J2470; J2704; J2765; J3480; J7030; J7120; Q9967

== ENCOUNTER 2025-07-26 10:07 | Inpatient (IN) | payer OTHER ==
[~2025-07-26] VITALS: Ht 170.2 cm; Wt 81.0 kg
[~2025-07-26 10:07] MED LIST changes: +POTA20LUD PO
[2025-07-26] MEDS ORDERED: Metoclopramide HCl 5MG / ML 2ML Vial IV ONE (10:50)
[2025-07-26] MEDS ORDERED: HYDROmorphone HCl/Pf 1MG SYR IV ONE ×2 (10:50→13:55)
[2025-07-26] MEDS ORDERED: Pantoprazole Sodium 40 MG Injection IV ONE (10:55)
[2025-07-26 13:44] LABS: BASOPHILS ABSOLUTE AUTO 0.03 K/mm3 (0.00-0.23); BASOPHILS PERCENT AUTO 0 % (0-2); EOSINOPHILS ABSOLUTE AUTO 0.14 K/mm3 (0.00-0.68); EOSINOPHILS PERCENT AUTO 1 % (0-6); Hematocrit 40.2 % (33.0-51.0); Hemoglobin 13.1 g/dL (11.5-16.0); IMMATURE GRAN ABSOLUTE AUTO 0.02 K/mm3 (0.00-0.10); IMMATURE GRAN PERCENT AUTO 0 % (0-1); LYMPHOCYTES ABSOLUTE AUTO 0.83 K/mm3 (0.84-5.20); LYMPHOCYTES PERCENT AUTO 8 % (21-46); MONOCYTES ABSOLUTE AUTO 0.40 K/mm3 (0.16-1.47); MONOCYTES PERCENT AUTO 4 % (4-13); Mean Corpuscular HGB Conc 32.6 g/dL (31.5-36.5); Mean Corpuscular Volume 90 fL (80-100); NEUTROPHILS ABSOLUTE AUTO 8.55 K/mm3 (1.96-9.15); NEUTROPHILS PERCENT AUTO 86 % (41-73); NRBC ABSOLUTE 0.00 K/mm3 (0.00-0.02); NRBC Auto 0.0 /100 WBC (0.0-0.2); Platelet Count 211 K/mm3 (150-400); RDW Coefficient Variation 13.3 % (11.7-14.2); RDW Standard Deviation 44.4 fL (35.1-46.3)
[2025-07-26 14:06] LABS: Alanine Aminotransfer (ALT/SGP 28.0 U/L (12-78); Albumin, Blood 4.2 g/dL (3.4-5.0); Albumin/Globulin Ratio 1.2 (0.8-1.8); Anion Gap 11.0 mmol/L (3-11); Aspartate Aminotrans (AST/SGOT 18.0 U/L (12-37); Bilirubin, Total 0.8 mg/dL (0.1-1.0); Blood Urea Nitrogen 7.0 mg/dL (8-24); CO2, Blood 22.0 mmol/L (21-32); Calcium, Blood 9.2 mg/dL (8.5-10.1); Chloride, Blood 107.0 mmol/L (98-108); Creatinine, Blood 0.84 mg/dL (0.40-1.00); Globulin, Blood 3.6 g/dL (2.2-4.0); Glucose, Blood 137.0 mg/dL (70-99); Potassium, Blood 3.8 mmol/L (3.5-5.5); Sodium, Blood 136.0 mmol/L (136-145); Total Protein, Blood 7.8 g/dL (6.4-8.2)
[2025-07-26] MEDS ORDERED: FLU VACC TS2025-26(6MOS UP)/PF 45 MCG/0.5 ML SYRINGE IM ONE (16:05)
[2025-07-26] MEDS ORDERED: Metoclopramide HCl 5MG / ML 2ML Vial IV PRN (16:05)
[2025-07-26] MEDS ORDERED: HydrALAZINE HCl 20 MG / ML 1ML Vial IV PRN (16:10)
[2025-07-26] MEDS ORDERED: Prochlorperazine Edisylate 10 mg Vial IV PRN (16:10)
[2025-07-26] MEDS ORDERED: FLU VACC TS2025-26(6MOS UP)/PF 45 MCG/0.5 ML SYRINGE IM SCH (16:20)
[2025-07-26] MEDS ORDERED: HYDROmorphone HCl/Pf 1MG SYR IV PRN (16:25)
[2025-07-26] MEDS ORDERED: Pantoprazole Sodium 40 MG Injection IV SCH (16:30)
[2025-07-26] MEDS ORDERED: NS 1,000 ML IV SCH (17:00)
[2025-07-26 19:41] VITALS: BP 203/113
[2025-07-26] MEDS ORDERED: FentaNYL Citrate 50 MCG/ML 2 ML Injection IV PRN (20:10)
[2025-07-26] MEDS ORDERED: LORazepam 2 MG/ML 1ML Injection IV ONE (20:10)
[2025-07-26 21:15] VITALS: BP 135/96
[2025-07-26 23:12] VITALS: BP 175/101
[2025-07-27 00:17] VITALS: BP 128/92
[2025-07-27 03:37] VITALS: BP 135/86
[2025-07-27 05:49] LABS: Hematocrit 37.7 % (33.0-51.0); Hemoglobin 12.2 g/dL (11.5-16.0); Mean Corpuscular HGB Conc 32.4 g/dL (31.5-36.5); Mean Corpuscular Volume 91 fL (80-100); NRBC ABSOLUTE 0.00 K/mm3 (0.00-0.02); NRBC Auto 0.0 /100 WBC (0.0-0.2); Platelet Count 238 K/mm3 (150-400); RDW Coefficient Variation 13.6 % (11.7-14.2); RDW Standard Deviation 46.1 fL (35.1-46.3)
[2025-07-27 06:14] LABS: Anion Gap 7.0 mmol/L (3-11); Blood Urea Nitrogen 5.0 mg/dL (8-24); CO2, Blood 25.0 mmol/L (21-32); Calcium, Blood 8.7 mg/dL (8.5-10.1); Chloride, Blood 109.0 mmol/L (98-108); Creatinine, Blood 0.87 mg/dL (0.40-1.00); Glucose, Blood 114.0 mg/dL (70-99); Potassium, Blood 3.6 mmol/L (3.5-5.5); Sodium, Blood 137.0 mmol/L (136-145)
[2025-07-27 07:16] VITALS: BP 130/72
--- NOTE | 2025-07-27 07:19 | NUR ---
ADMISSION AND SHIFT SUMMARY ASSUMED CARE AT 1940. A/Ox4, PRN HYDRALAZINE EFFECTIVE FOR SBP >160. PT REPORTS NAUSEA AND PAIN AT [facility], MANAGED PER JAN. 4 EPISODES OF EMESIS NOTED. UP TO BEDSIDE COMMODE WITH SBA. PT SLEPT INTERMITTENTLY. CALL LIGHT IN REACH, SAFETY PRECAUTIONS IN PLACE.
[2025-07-27] MEDS ORDERED: Polyethylene Glycol 3350 17 gm PO PRN (08:15)
[2025-07-27] MEDS ORDERED: Enoxaparin 40 MG/0.4 ML SYR SC SCH (09:00)
[2025-07-27] MEDS ORDERED: Formoterol/Mometasone MDI 5/200 mcg 13 GM INH SCH (09:15)
[2025-07-27] MEDS ORDERED: Albuterol HFA200 ACT/6.7 GM INH INH PRN (09:15)
[2025-07-27] MEDS ORDERED: LORazepam 2 MG/ML 1ML Injection IV PRN (09:40)
[2025-07-27] MEDS ORDERED: Prochlorperazine Edisylate 10 mg Vial IV PRN (09:40)
--- NOTE | 2025-07-27 10:27 | NUR ---
"Spiritual care | Pt. request. Pt. is awake in bed and welcomes my visit. Pt. verbalized remembering this hydro operator from a previous visit. Pt. verbalizes details of her critical disease, and the negative impacts it has on her SO. Pt. verbalizes a request to have this hydro operator reach out to SO by phone. Pt. also verbalizes the spiritual transformation of her son. Prayed with the Pt. Pt. verbalized gratitude for the spiritual care visit as well as the attempt to communicate with her SO."
--- NOTE | 2025-07-27 13:39 | NUR ---
PT PASSED APPROX 1030. FAMILY AT BEDSIDE, SPIRITUAL CARE OFFERED. PT FAMILY REQUESTS [facility]
[2025-07-27 16:08] VITALS: BP 146/91
--- NOTE | 2025-07-27 18:40 | NUR ---
SHIFT SUMMARY A/OX4, SBA WITH TRANSFERS. DILAUDID GIVEN FOR PAIN. ATIVAN, COMPAZINE, AND REGLAN GIVEN FOR NAUSEA. IV POTASSIUM REPLACED. NO ACUTE CHANGES AT THIS TIME.
[2025-07-27 20:43] VITALS: BP 133/85
[2025-07-27] MEDS ORDERED: Docusate Sodium/Senna 1 Tab PO SCH (21:00)
[2025-07-27] MEDS ORDERED: LORazepam 2 MG/ML 1ML Injection IV ONE (23:35)
--- NOTE | 2025-07-27 23:35 | NUR ---
HOSPITALIST CONTACT PT CONTINUING TO HAVE NAUSEA AND VOMITTING. PT GIVEN COMPAZINE IV AN ORAL--ORAL DOSE CAME UP WITH EMESIS. CALL TO HOSPITALIST AND SPOKE TO SAMPSON. ADVISED PT HAS NO OTHER PRN MEDS AVAILABLE FOR N&V AT THIS TIME. NEW ORDER FOR 1 TIME DOSE 1MG IV ATIVAN NOW. SAMPSON DID NOT WANT TO ORDER PHENERAGAN SUPPOSITORY.
[2025-07-28 00:10] VITALS: BP 137/80
[2025-07-28] MEDS ORDERED: NS 250 ML IV PRN (00:40)
[2025-07-28 04:47] VITALS: BP 145/82
--- NOTE | 2025-07-28 06:41 | NUR ---
LANDSCAPE GARDENER SUMMARY PT CONTINUES TO HAVE N&V. MEDS GIVEN PER JAN. REENFORCED EDUCATION ON AFFECTS OF NAUSEA MEDS ON CARDIAC/RHYTHM. PT STATES SHE "CAN'T LIVE" WITH OUT REGLAN. ENCOURAGED PT TO DISCUSS RISK VS BENEFIT WITH DR. MENON LIGHT ACCESSIBLE. PT ABLE TO MAKE NEEDS KNOWN. CARE ONGOING.
[2025-07-28 07:59] VITALS: BP 152/86
[2025-07-28] MEDS ORDERED: Metoclopramide HCl 5MG / ML 2ML Vial IV PRN (09:40)
[2025-07-28 09:41] LABS: Magnesium, Blood 1.9 mg/dL (1.6-2.4)
[2025-07-28 09:42] LABS: Anion Gap 8.0 mmol/L (3-11); Blood Urea Nitrogen 4.0 mg/dL (8-24); CO2, Blood 25.0 mmol/L (21-32); Calcium, Blood 8.4 mg/dL (8.5-10.1); Chloride, Blood 108.0 mmol/L (98-108); Creatinine, Blood 0.96 mg/dL (0.40-1.00); Glucose, Blood 95.0 mg/dL (70-99); Potassium, Blood 3.5 mmol/L (3.5-5.5); Sodium, Blood 137.0 mmol/L (136-145)
--- NOTE | 2025-07-28 11:00 | NUR ---
NOTE DR. DUNLAP ROUNDED ON PT. D/C FENT AND COMPAZINE. THIS RN NOTICED PT IS NPO. CLARIFIED WITH DR. DUNLAP IF HE WANTS Q6 BLOOD SUGAR ORDERS. DR. DUNLAP REPORTED "NOT NEEDED, LETS ADVANCE DIET TOLERATED AND TRY TO GET PT HOME BASED ON IF SHE CAN TOLERATE FOOD/PAIN." DR. DUNLAP GAVE VERBAL FOR ADVANCING DIET AND ORDERED REGLAN. THIS RN REPORTED NO MEDIPORT ACCESS ORDERS. "DR. DUNLAP SAID NOT NEEDED." THIS RN LET ASSISTANT SUPERINTENDENT KNOW. PT CONT HAS ONE IV ACCESSED (MEDIPORT) AT TKO RATE. PT ON TELE, NO TELE REPORTS. THIS RN CLARIFIED IF DR. DUNLAP, WANTS CONTINUE PULSE OX ORDERED. DR. DUNLAP REPORTED, "NOT NEEDED." PT ON ROOM AIR, SPO2 94%.
[2025-07-28 11:48] VITALS: BP 139/84
--- NOTE | 2025-07-28 13:37 | NUR ---
NOTE DR. DUNLAP REPORTED "OK TO ACCESS AND USE [place]."
--- NOTE | 2025-07-28 14:48 | NUR ---
NOTE PT STATES TOLERATED CLEAR LIQUID DIET, PT HAS ADVANCE DIET TAWNYA ORDERS, PT REPORTS WANTING TO TRY CRACKERS THEN GET A REGULAR TEXTURE DINNER.
--- NOTE | 2025-07-28 15:01 | NUR ---
NOTE PT POTASSIUM TRENDING DOESN. PT POTASSIUM IS 3.5. DR. DUNLAP ORDERED ORAL POTASSIUM. PT STATES "NOT READY TO TRY THE BIG ORAL POTASSIUM PILL, WOULD LIKE TO HAVE IV POTASSIUM REPLACEMENT, ALTHOUGH TOLERATED LUNCH WANTING TO SLOWLY INTODUCE THINGS ORALLY." THIS RN CALLED DR. DUNLAP. SAID "OK WILL CHANGE TO IV POTASSIUM."
[2025-07-28 15:33] VITALS: BP 134/87
--- NOTE | 2025-07-28 19:37 | NUR ---
SHIFT SUMMARY PT A&OX4. PT INDEPENDENT IN ROOM. PT REPORTS NO SOB/CHEST PAIN. PT ADMITTED DUE TO RETRACTABLE N/V. PT REPORTS PAIN IN LUQ PAIN MANAGED PER EMAR. PT HAS ADVANCE DIET TOLERATED ORDERS. PT HAS ONE EPISODE OF VOMITING BEFORE LUNCH, AND ONE EPISODE OF VOMITING AFTER DINNER. PT REPORTS NAUSEA AND MEDICATED PER EMAR WITH ONE TIME DOSE OF PHENERGYN SUPP AND REGLAN Q6. PHARMACY CONFIRMED OK TO BE GIVEN TOGETHER SINCE PHENERGYN SUPP WAS ONE TIME ORDER. PT HAD IV POTASSIUM REPLACEMENT TODAY. IV RUNNING TKO. PT IN BED, BED IN LOWEST POSITION, CALL LIGHT IN REACH. PT MAKES NEEDS KNOWN. VSS. PT ON TELE, NO TELE REPORTS NOTED. VSS
[2025-07-28 20:19] VITALS: BP 137/78
[2025-07-29 00:09] VITALS: BP 104/68
[2025-07-29 04:05] VITALS: BP 115/75
[2025-07-29 05:25] LABS: Anion Gap 6.0 mmol/L (3-11); Blood Urea Nitrogen 4.0 mg/dL (8-24); CO2, Blood 29.0 mmol/L (21-32); Calcium, Blood 7.9 mg/dL (8.5-10.1); Chloride, Blood 108.0 mmol/L (98-108); Creatinine, Blood 0.88 mg/dL (0.40-1.00); Glucose, Blood 97.0 mg/dL (70-99); Magnesium, Blood 1.9 mg/dL (1.6-2.4); Potassium, Blood 3.9 mmol/L (3.5-5.5); Sodium, Blood 139.0 mmol/L (136-145)
--- NOTE | 2025-07-29 05:58 | NUR ---
SHIFT SUMMARY PATIENT IS ALERT AND ORIENTED. PATIENT HAS HAD NO ACUTE EVENTS THIS SHIFT. VITAL SIGNS REVIEWED. PATIENT HAS BEEN MEDICATED FOR PAIN THIS SHIFT. PATIENT HAS BEEN MEDICATED FOR NAUSEA THIS SHIFT. NO REPORTS OF VOMITTING THIS SHIFT. PATIENTS MEDIPORT IS ACCESSED AND RUNNING TKO. BED IN LOCKED AND LOWEST POSITION. CALL LIGHT IN PLACE.
[2025-07-29 08:23] VITALS: BP 143/85
--- NOTE | 2025-07-29 11:21 | NUR ---
NOTE DR. SHERWOOD ROUNDED ON PT, REPORTED "PT REQUESTING TO DISCHARGE, OK TO DISCHARGE TODAY." PT REPORTS NAUSEA BUT ABLE TO TOLERATE BREAKFAST, DID NOT PUKE POST BREAKFAST. AWAITING DISCHARGE ORDERS. MEDIPORT STILL TKO, TELE STILL REMAINS, NO REPORTS NOTED.
[2025-07-29 12:45] VITALS: BP 133/92
--- NOTE | 2025-07-29 14:36 | NUR ---
DISHCHARGE NOTE PT A&OX4. PT ADMITTED DUE TO RETRACTABLE N/V. PT ATE BREAKFAST THIS AM. PT REPORTS NO VOMMITTING. ORDERED [facility]GE. [facility]/C. ORDERED DISCHARGE. ADJUSTO WRITER OPERATOR FAXED MEDS. THIS RN WENT OVER DISCHARGE INSTRUCTIONS AND MEDS. PT WHEELED TO PATIENT ENTERANCE BY BLANKET FOLDER. PT TOOK ALL PERSONAL BELONGINGS.
== END 2025-07-29 14:15 | disposition home or self-care (01) | DRG 392 ==
LOC: ER 10:07 → MEDS 10:08
PROVIDERS: Emergency Medicine; ADMIT Internal Medicine
DX: K31.84 Gastroparesis (principal); J45.909 Unspecified asthma, uncomplicated; I10 Essential (primary) hypertension; F41.9 Anxiety disorder, unspecified; G89.29 Other chronic pain; K58.9 Irritable bowel syndrome, unspecified; T40.2X5A Adverse effect of other opioids, initial encounter; Z87.738 Personal history of other specified (corrected) congenital malformations of digestive system; Z79.891 Long term (current) use of opiate analgesic; Z88.2 Allergy status to sulfonamides; Z88.0 Allergy status to penicillin; Z91.040 Latex allergy status; Z88.5 Allergy status to narcotic agent; Z88.8 Allergy status to other drugs, medicaments and biological substances; Z79.51 Long term (current) use of inhaled steroids
CPT/HCPCS: 36415; 36416; 80048; 80053; 83690; 83735; 85025; 85027; 94640; 94664; 94760; 96374; 96375; 96376; 99285-25; A9270; G0378; J0360; J0780; J1171; J1642; J1790; J2060; J2470; J2765; J3010; J3480; J7030; J7050; J7120

== ENCOUNTER 2025-08-14 20:57 | Inpatient (IN) | payer OTHER ==
[~2025-08-14] VITALS: Ht 165.1 cm; Wt 76.0 kg
[2025-08-14] MEDS ORDERED: Ondansetron HCl 2 MG / ML 2ML Vial IV PRN (21:30)
[2025-08-14 22:15] LABS: BASOPHILS ABSOLUTE AUTO 0.01 K/mm3 (0.00-0.23); BASOPHILS PERCENT AUTO 0 % (0-2); EOSINOPHILS ABSOLUTE AUTO 0.01 K/mm3 (0.00-0.68); EOSINOPHILS PERCENT AUTO 0 % (0-6); Hematocrit 39.1 % (33.0-51.0); Hemoglobin 13.1 g/dL (11.5-16.0); IMMATURE GRAN ABSOLUTE AUTO 0.03 K/mm3 (0.00-0.10); IMMATURE GRAN PERCENT AUTO 0 % (0-1); LYMPHOCYTES ABSOLUTE AUTO 0.92 K/mm3 (0.84-5.20); LYMPHOCYTES PERCENT AUTO 7 % (21-46); MONOCYTES ABSOLUTE AUTO 0.48 K/mm3 (0.16-1.47); MONOCYTES PERCENT AUTO 4 % (4-13); Mean Corpuscular HGB Conc 33.5 g/dL (31.5-36.5); Mean Corpuscular Volume 87 fL (80-100); NEUTROPHILS ABSOLUTE AUTO 11.13 K/mm3 (1.96-9.15); NEUTROPHILS PERCENT AUTO 89 % (41-73); NRBC ABSOLUTE 0.00 K/mm3 (0.00-0.02); NRBC Auto 0.0 /100 WBC (0.0-0.2); Platelet Count 240 K/mm3 (150-400); RDW Coefficient Variation 13.1 % (11.7-14.2); RDW Standard Deviation 40.9 fL (35.1-46.3)
[2025-08-14 22:34] LABS: Alanine Aminotransfer (ALT/SGP 23.0 U/L (12-78); Albumin, Blood 4.2 g/dL (3.4-5.0); Albumin/Globulin Ratio 1.1 (0.8-1.8); Anion Gap 10.0 mmol/L (3-11); Aspartate Aminotrans (AST/SGOT 17.0 U/L (12-37); Bilirubin, Total 0.8 mg/dL (0.1-1.0); Blood Urea Nitrogen 7.0 mg/dL (8-24); CO2, Blood 24.0 mmol/L (21-32); Calcium, Blood 9.7 mg/dL (8.5-10.1); Chloride, Blood 104.0 mmol/L (98-108); Creatinine, Blood 0.69 mg/dL (0.40-1.00); Globulin, Blood 3.9 g/dL (2.2-4.0); Glucose, Blood 157.0 mg/dL (70-99); Potassium, Blood 3.8 mmol/L (3.5-5.5); Sodium, Blood 134.0 mmol/L (136-145); Total Protein, Blood 8.1 g/dL (6.4-8.2)
[2025-08-15] MEDS ORDERED: NS 1,000 ML IV SCH ×3 (00:05→05:00)
[2025-08-15] MEDS ORDERED: DiphenhydrAMINE HCl 50 MG/ML 1ML Vial IV ONE (00:05)
[2025-08-15] MEDS ORDERED: Pantoprazole Sodium 40 MG Injection IV ONE (00:05)
[2025-08-15] MEDS ORDERED: Metoclopramide HCl 5MG / ML 2ML Vial IV ONE (00:05)
[2025-08-15] MEDS ORDERED: HYDROmorphone HCl/Pf 1MG SYR IV ONE ×2 (00:25→04:55)
[2025-08-15 00:48] LABS: pH Blood Venous 7.46 (7.34-7.37)
[2025-08-15] MEDS ORDERED: ONDA4ODT MM (02:05)
[2025-08-15] MEDS ORDERED: PANT40 PO (02:05)
[2025-08-15 02:09] LABS: Hematocrit 38.1 % (33.0-51.0); Hemoglobin 12.5 g/dL (11.5-16.0)
[2025-08-15] MEDS ORDERED: LORazepam 2 MG/ML 1ML Injection IV PRN ×2 (04:35→12:40)
[2025-08-15] MEDS ORDERED: Prochlorperazine Edisylate 10 mg Vial IV PRN (04:35)
[2025-08-15] MEDS ORDERED: Metoclopramide HCl 5MG / ML 2ML Vial IV PRN (04:35)
[2025-08-15] MEDS ORDERED: FLU VACC TS2025-26(6MOS UP)/PF 45 MCG/0.5 ML SYRINGE IM SCH (04:35)
[2025-08-15] MEDS ORDERED: HYDROmorphone HCl/Pf 1MG SYR IV PRN ×2 (05:00→17:30)
[2025-08-15] MEDS ORDERED: HydrALAZINE HCl 20 MG / ML 1ML Vial IV PRN (05:05)
[2025-08-15 05:19] LABS: BASOPHILS ABSOLUTE AUTO 0.02 K/mm3 (0.00-0.23); BASOPHILS PERCENT AUTO 0 % (0-2); EOSINOPHILS ABSOLUTE AUTO 0.01 K/mm3 (0.00-0.68); EOSINOPHILS PERCENT AUTO 0 % (0-6); Hematocrit 36.1 % (33.0-51.0); Hemoglobin 11.7 g/dL (11.5-16.0); IMMATURE GRAN ABSOLUTE AUTO 0.05 K/mm3 (0.00-0.10); IMMATURE GRAN PERCENT AUTO 0 % (0-1); LYMPHOCYTES ABSOLUTE AUTO 1.03 K/mm3 (0.84-5.20); LYMPHOCYTES PERCENT AUTO 8 % (21-46); MONOCYTES ABSOLUTE AUTO 0.73 K/mm3 (0.16-1.47); MONOCYTES PERCENT AUTO 5 % (4-13); Mean Corpuscular HGB Conc 32.4 g/dL (31.5-36.5); Mean Corpuscular Volume 88 fL (80-100); NEUTROPHILS ABSOLUTE AUTO 11.78 K/mm3 (1.96-9.15); NEUTROPHILS PERCENT AUTO 86 % (41-73); NRBC ABSOLUTE 0.00 K/mm3 (0.00-0.02); NRBC Auto 0.0 /100 WBC (0.0-0.2); Platelet Count 199 K/mm3 (150-400); RDW Coefficient Variation 13.2 % (11.7-14.2); RDW Standard Deviation 43.0 fL (35.1-46.3)
[2025-08-15 06:00] LABS: Alanine Aminotransfer (ALT/SGP 19.0 U/L (12-78); Albumin, Blood 3.8 g/dL (3.4-5.0); Albumin/Globulin Ratio 1.3 (0.8-1.8); Anion Gap 10.0 mmol/L (3-11); Aspartate Aminotrans (AST/SGOT 14.0 U/L (12-37); Bilirubin, Total 0.7 mg/dL (0.1-1.0); Blood Urea Nitrogen 7.0 mg/dL (8-24); CO2, Blood 24.0 mmol/L (21-32); Calcium, Blood 8.5 mg/dL (8.5-10.1); Chloride, Blood 106.0 mmol/L (98-108); Creatinine, Blood 0.71 mg/dL (0.40-1.00); Globulin, Blood 3.0 g/dL (2.2-4.0); Glucose, Blood 125.0 mg/dL (70-99); Potassium, Blood 3.5 mmol/L (3.5-5.5); Sodium, Blood 136.0 mmol/L (136-145); Total Protein, Blood 6.8 g/dL (6.4-8.2)
--- NOTE | 2025-08-15 08:22 | NUR ---
CALLED FOR REPORT ON PATIENT FROM NURSE RAMIREZ IN ED AT 9002
[2025-08-15 08:54] VITALS: BP 165/113
[2025-08-15 15:50] VITALS: BP 151/89
[2025-08-15] MEDS ORDERED: Ondansetron HCl 2 MG / ML 2ML Vial IV PRN (17:30)
[2025-08-15] MEDS ORDERED: Metoclopramide HCl 5MG / ML 2ML Vial IV SCH (18:00)
--- NOTE | 2025-08-15 18:41 | NUR ---
1010- TELEPHONE ORDER TO MD QUINTERO FOR OKAY TO USE ALREADY ACCESSED MEDIPORT (WAS ACCESSED IN ER PER PT). ORDER PLACED FOR OK TO USE MEDIPORT PER [facility]GR[facility] THROUGH NURSE NOTIFY.
--- NOTE | 2025-08-15 19:16 | NUR ---
SUMMARY- AAOX4. SBA. PT ON RA. PAIN MODERATELY WELL CONTROLLED WITH EMAR PAIN MEDS. PT WAS INTERMITTENTLY VOMITTING ALL SHIFT. IT WAS ESTIMATED THAT PT HAD AT LEAST 10 EPISODES OF EMESIS. PT IS NOT TOLERATING ANY FOODS AND IS ONLY DRINKING WATER. NO MAJOR ACUTE EVENTS.
[2025-08-15 19:20] VITALS: BP 125/72
--- NOTE | 2025-08-16 03:24 | NUR ---
SHIFT LOWELL: AOX4. VSS. INDEPENDENT. PT IS HAVING LOTS OF EMESIS, NAUSEA, AND ABDOMINAL PAIN. PT IS REQUESTING ALL MEDICATION OPTIONS AROUND THE CLOCK. CALL LIGHT IS WITHIN REACH. BED IS LOW AND LOCKED.
[2025-08-16 04:59] VITALS: BP 176/103
[2025-08-16 07:51] VITALS: BP 184/97
--- NOTE | 2025-08-16 08:12 | NUR ---
CALLED AND NOTIFIED DR. QUINTERO OF PATIENT'S BLOOD PRESSURE THIS MORNING AND THAT SHE WAS GIVEN HYDRALAZINE AND WAS REPORTING AND HEADACHE. ALSO DISCUSSED THAT IN HER NOTE IV PROTONIX WAS DISCUSSED, BUT PATIENT HASN'T BEEN RECEIVING/ISN'T ORDERED. PER DR. QUINTERO PATIENT WILL BE SMALL SIPS AND CHIPS NOT COMPLETELY NPO.
[2025-08-16] MEDS ORDERED: Pantoprazole Sodium 40 MG Injection IV ONE (08:20)
[2025-08-16 10:42] VITALS: BP 190/99
[2025-08-16] MEDS ORDERED: LORazepam 2 MG/ML 1ML Injection IV PRN (12:35)
[2025-08-16 14:56] VITALS: BP 130/80
--- NOTE | 2025-08-16 16:42 | NUR ---
SHIFT SUMMARY: PATIENT PAINFUL AND NAUSEOUS THROUGHOUT THE SHIFT. MEDICATING NEEDED PER EMAR. TOLERATED FIRST TAPER DOSE OF BUPRENORPHINE. NO NOTED VOMITING. TOLERATING ICE CHIPS MOSTLY. SHE IS GETTING NS @ 150ML/HR. CALLS APPROPRIATELY, NO SIGNS OR SYMPTOMS OF DISTRESS BESIDES WHEN IN SEVERE PAIN, IN BED, ALERT, CALL LIGHT WITHIN REACH, PLAN OF CARE ONGOING.
--- NOTE | 2025-08-16 18:00 | NUR ---
END OF SHIFT SUMMARY: ASSUMED CARE OF PATIENT AT APPROXIMATELY 1700. PATIENT IS RESTING COMFORTABLY IN ROOM AT THIS TIME. ALL MEDICATIONS ADMINISTERED PER EMAR. PATIENT CONTINUES WITH NAUSEA AND PAIN AND ADMINISTERING MEDICATIONS WHEN NEEDED. PATIENT WITH CALL LIGHT WITHIN REACH, BED IN LOWEST POSTION. WILL CONTINUE TO MONITOR UNTIL NEXT SHIFT NURSE ARRIVES AND REPORT IS GIVEN.
[2025-08-16 20:17] VITALS: BP 138/86
[2025-08-17 03:22] VITALS: BP 162/96
[2025-08-17 04:49] LABS: BASOPHILS ABSOLUTE AUTO 0.02 K/mm3 (0.00-0.23); BASOPHILS PERCENT AUTO 0 % (0-2); EOSINOPHILS ABSOLUTE AUTO 0.14 K/mm3 (0.00-0.68); EOSINOPHILS PERCENT AUTO 2 % (0-6); Hematocrit 32.6 % (33.0-51.0); Hemoglobin 10.2 g/dL (11.5-16.0); IMMATURE GRAN ABSOLUTE AUTO 0.02 K/mm3 (0.00-0.10); IMMATURE GRAN PERCENT AUTO 0 % (0-1); LYMPHOCYTES ABSOLUTE AUTO 1.38 K/mm3 (0.84-5.20); LYMPHOCYTES PERCENT AUTO 23 % (21-46); MONOCYTES ABSOLUTE AUTO 0.41 K/mm3 (0.16-1.47); MONOCYTES PERCENT AUTO 7 % (4-13); Mean Corpuscular HGB Conc 31.3 g/dL (31.5-36.5); Mean Corpuscular Volume 91 fL (80-100); NEUTROPHILS ABSOLUTE AUTO 4.00 K/mm3 (1.96-9.15); NEUTROPHILS PERCENT AUTO 67 % (41-73); NRBC ABSOLUTE 0.00 K/mm3 (0.00-0.02); NRBC Auto 0.0 /100 WBC (0.0-0.2); Platelet Count 158 K/mm3 (150-400); RDW Coefficient Variation 12.8 % (11.7-14.2); RDW Standard Deviation 43.2 fL (35.1-46.3)
[2025-08-17 05:10] LABS: Anion Gap 9.0 mmol/L (3-11); Blood Urea Nitrogen 5.0 mg/dL (8-24); CO2, Blood 25.0 mmol/L (21-32); Calcium, Blood 7.7 mg/dL (8.5-10.1); Chloride, Blood 106.0 mmol/L (98-108); Creatinine, Blood 0.85 mg/dL (0.40-1.00); Glucose, Blood 77.0 mg/dL (70-99); Potassium, Blood 2.8 mmol/L (3.5-5.5); Sodium, Blood 137.0 mmol/L (136-145)
[2025-08-17] MEDS ORDERED: Pantoprazole Sodium 40 MG Injection IV SCH ×2 (06:00→16:30)
[2025-08-17 07:06] VITALS: BP 138/82
--- NOTE | 2025-08-17 07:32 | NUR ---
SHIFT SUMMARY PT VERY PAINFUL T/O THE NIGHT, MEDICATED PER EMAR. SHE ALSO C/O OF HEAVY ANXIETY, I GAVE ATIVAN ORDERED TWICE. PT WOULD SLEEP AFTER PAIN MEDICATION FOR ABOU 2 HOURS EACH TIME. SHE IS AOX4, INDEPENDENT IN THE ROOM. SHE WAS NAUSEOUS T/O THE NIGHT WITH MANY EPISODES OF EMESIS. PT WAS EATING ICE CHIPS T/O THE NIGHT, I ADVISED HER THAT MAY BE MAKING HER NAUSEA WORSE AND TO TRY TO LIMIT THE AMOUNT OF ICE CHIPS. MEDICATED FREQUENTLY FOR NAUSEA.
[2025-08-17] MEDS ORDERED: Potassium Chl 20MEQ/Water100ML 100 ML IV SCH (11:50)
[2025-08-17] MEDS ORDERED: Ketorolac Tromethamine 15mg Vial IV PRN (11:50)
[2025-08-17] MEDS ORDERED: PROC5 PO (13:08)
[2025-08-17] MEDS ORDERED: Amitriptyline H10 MG PO (13:10)
[2025-08-17] MEDS ORDERED: TPN Consult Notification XX ONE (13:55)
[2025-08-17 16:36] VITALS: BP 157/98
--- NOTE | 2025-08-17 16:52 | NUR ---
SHIFT SUMMARY: PATIENT NAUSEA AND PAIN THROUGHOUT THE SHIFT. SEEMS TO HAVING MORE BREAKTHROUGH PAIN INBETWEEN DOSES. PATIENT HAS NOT VOMITED THIS SHIFT. SHE HAS BEEN TOLERATING SMALL SIPS OF LIQUIDS AND WAS ALLOWED TO ADVANCE SOME OF HER LIQUIDS AND TRIAL JELLOS DUE TO REQUESTING TO EAT FOOD. PER DR. QUINTERO WOULD LIKE TO HAVE THE PATIENT TAKE IS SLOW AND TO START 1 BAG OF PPN AND CAN SEE ABLE STOPPING IT TOMORROW DEPENDING ON HOW SHE IS FEELING. PATIENT GETTING NS STILL AND REPLACEMENT POSTASSIUM. SHE IS IN BED, RESTING, RESPIRATIONS EVEN AND UNLABORED, CALL LIGHT WITHIN REACH, NO SIGNS OR SYMPTOMS OF DISTRESS, PLAN OF CARE ONGOING.
[2025-08-17] MEDS ORDERED: ZINC SULF IV SCH (17:00)
[2025-08-17] MEDS ORDERED: [UNRECOGNIZED DRUG - OTHER] IV SCH (17:00)
[2025-08-17 20:19] VITALS: BP 154/101
[2025-08-17 20:23] VITALS: BP 163/96
[2025-08-18 04:07] VITALS: BP 154/109
[2025-08-18 04:12] VITALS: BP 171/104
--- NOTE | 2025-08-18 04:23 | NUR ---
Extravasated Mediport TPN Pt woke up around 0400 and noticed swelling of her right upper chest. She was rcving TPN through her mediport. She had pulled it while trying to get up earlier in the shift and I assessed and flushed the mediport at that time and it appeared functional. Seeing the swelling I immediatly stopped the infusion and called the hospitalist. Dr. Valdez ordered a chest xray and said to wait until day time so a surgeon could assess and remove the mediport. Called pharmacy to ask for further interventions. Pt is not experiencing any breathing/cardiac symptoms at this time, her right upper chest is sore. VSS.
[2025-08-18 06:31] LABS: Alanine Aminotransfer (ALT/SGP 24 U/L (12-78); Albumin, Blood 3.5 g/dL (3.4-5.0); Albumin/Globulin Ratio 1.2 (0.8-1.8); Anion Gap 9 mmol/L (3-11); Aspartate Aminotrans (AST/SGOT 16 U/L (12-37); Bilirubin, Total 0.8 mg/dL (0.1-1.0); Blood Urea Nitrogen 8 mg/dL (8-24); CO2, Blood 26 mmol/L (21-32); Calcium, Blood 8.7 mg/dL (8.5-10.1); Chloride, Blood 104 mmol/L (98-108); Creatinine, Blood 0.86 mg/dL (0.40-1.00); Globulin, Blood 2.9 g/dL (2.2-4.0); Glucose, Blood 109 mg/dL (70-99); Magnesium, Blood 1.9 mg/dL (1.6-2.4); Phosphorus, Blood 2.2 mg/dL (2.5-4.9); Potassium, Blood 3.7 mmol/L (3.5-5.5); Sodium, Blood 135 mmol/L (136-145); Total Protein, Blood 6.4 g/dL (6.4-8.2); Triglycerides 71 mg/dL (30-160)
--- NOTE | 2025-08-18 06:38 | NUR ---
Shift Summary Pt's Mediport extravasated, see previous nursing note. Pt was able to sleep for longer periods of time tonight requiring less PRN medications. After extravasation pt's righ upper chest is painful, medicated per EMAR. She went in for an X-Ray at 0600. Consult request placed with Dr. Dempsey's office. Medicated this AM for anxiety. Pt currently sleeping comfortably in bed. One episode of emesis last night after she was given clonidine. I gave one PRN Hydralazine as ordered for high BP. PT strict NPO for now for possible surgery today to repair or replace mediport. She has had nothing by mouth since before midnight.
[2025-08-18 07:49] VITALS: BP 134/83
[2025-08-18] MEDS ORDERED: HYDROmorphone HCl/Pf 1MG SYR IV PRN (14:40)
--- NOTE | 2025-08-18 16:10 | NUR ---
SHIFT SUMMARY: PATIENT HAS NOT VOMITED THIS SHIFT; NOR COMPLAINED OF NAUSEA. SOME ABD PAIN. MOST OF HER PAIN IS FROM HER MEDIPORT EXTRAVASATION TODAY TO HER R BREAST/CHEST AREA. SWELLING HAS GONE DOWN WITH ICE AND HEAT APPLIATION. INCREASE OF SUBOXONE AND DECREASE IN DILAUDID. PATIENT CONTINUES TO HAVE 6-10/10 PAIN THROUGHOUT THE SHIFT. SHE IS SO FAR TOLERATING PO INTAKE AND STARTING A REGULAR DIET FOR DINNER; SHE IS LOOKING FORWARD TO IT DUE TO FEELING HUNGRY. SHE IS ALERT, IN BED, CALL LIGHT WITHIN REACH, NO SIGNS OR SYMPTOMS OF DISTRESS, PLAN OF CARE ONGOING. PLAN IS TO D/C 08/18/25.
[2025-08-18 16:30] VITALS: BP 132/93
[2025-08-18 19:46] VITALS: BP 132/84
[2025-08-19 04:04] VITALS: BP 148/85
[2025-08-19 06:07] LABS: Magnesium, Blood 1.9 mg/dL (1.6-2.4); Phosphorus, Blood 3.5 mg/dL (2.5-4.9)
--- NOTE | 2025-08-19 06:54 | NUR ---
SHIFT SUMMARY AT START OF SHIFT, AT START OF SHIFT, PT VOICED CONCERNS ABOUT HAVING IV FLUID INFUSION. PT REFUSED IV FLUIDS, STATING SHE IS GETTING ENOUGH PO FLUIDS TO VOID APPROX EVERY HOUR. PT REQUESTED PAIN MEDICATION APPROX [id number]. MEDICATED PER EMAR. PT RESTING PEACEFULLY AT THIS TIME. PT ASKED FOR MORE PAIN MEDICATION. MEDICATED PER EMAR APPROX [id number].
[2025-08-19 07:31] VITALS: BP 147/80
[2025-08-19] MEDS ORDERED: HYDROmorphone HCl/Pf 1MG SYR IV PRN (08:35)
[2025-08-19] MEDS ORDERED: BUPRENORPHINE HC2 MG SL (13:51)
[2025-08-19] MEDS ORDERED: CATAPRES0.1 MG PO (13:52)
--- NOTE | 2025-08-19 14:47 | NUR ---
1415 DISCHARGE INSTRUCTIONS REVIEWED WITH PATIENT AND CO[Y PROVIDED TO PATIENT. PTS QUESTIONS ANSWERED AND PT VERBALIZES UNDERSTANDING OF INFO. WRITTEN RX FOR SUBOXONE GIVEN TO PATIENT. PT REPORTS SHE IS EXCITED TO BE GOING HOME AND WILL FOLLOW UP WITH PROVIDERS INSTRUCTED
== END 2025-08-19 14:29 | disposition home or self-care (01) | DRG 392 ==
LOC: ER 20:57 → ERHOLD 20:58 → MEDS 20:58 → EDBEDREQ 08-15 04:00 → MEDS 08-15 08:43
PROVIDERS: Emergency Medicine; Internal Medicine; Student in an Organized Health Care Education/Training Program; ADMIT Internal Medicine
PROC: 3E0336Z Introduction of Nutritional Substance into Peripheral Vein, Percutaneous Approach (ICD-10-PCS; principal; 2025-08-17)
DX: K31.84 Gastroparesis (principal); K92.0 Hematemesis; T80.89XA Other complications following infusion, transfusion and therapeutic injection, initial encounter; J45.909 Unspecified asthma, uncomplicated; I10 Essential (primary) hypertension; F41.9 Anxiety disorder, unspecified; E87.6 Hypokalemia; R22.2 Localized swelling, mass and lump, trunk; E86.0 Dehydration; M79.7 Fibromyalgia; G89.29 Other chronic pain; Z87.442 Personal history of urinary calculi; Z90.710 Acquired absence of both cervix and uterus; Z90.49 Acquired absence of other specified parts of digestive tract; Z87.891 Personal history of nicotine dependence; Z79.899 Other long term (current) drug therapy; Z88.0 Allergy status to penicillin; Z88.2 Allergy status to sulfonamides; Z88.5 Allergy status to narcotic agent; Z91.040 Latex allergy status
CPT/HCPCS: 36415; 71045; 71046; 74177; 80048; 80053; 82803; 83605; 83690; 83735; 84100; 84478; 85014; 85018; 85025; 85730; 93005; 93010; 96361; 96374; 96375; 96376; 99285-25; A9270; G0378; J0360; J0780; J1171; J1200; J1885; J2060; J2405; J2470; J2765; J3411; J3480; J7030; Q9967